=== PATIENT | male | born 1950 | race Caucasian/White ===

== ENCOUNTER 2017-08-06 05:17 | Observation (INO) ==
--- NOTE | 2017-08-06 05:36 | Emergency Department Note ---
Disposition Clinical Impression: Congestive heart failure Qualifiers: Heart failure type: diastolic Heart failure chronicity: acute on chronic Qualified Code(s): I50.33 - Acute on chronic diastolic (congestive) heart failure Disposition: Still a Patient Condition: Fair General Adult HPI - General Chief complaint: ED Shortness of Breath/Dyspnea Stated complaint: "CHF/SOB/Weakness" Time Seen by Provider: 08/06/17 05:28 Source: patient Mode of arrival: ambulatory Nursing Notes Reviewed: Yes Vital Signs Reviewed: Yes - History of Present Illness HPI Narrative: 66-year-old male with a history of hypertension, CAD with 8 stents presents with shortness of breath. Patient stated he has shortness breath and activity intolerance and bilateral ankle swelling for 2 months. Patient came here today because felt the symptoms getting worse. Patient stated walking 10 meters may cause difficulty catching breath. No chest pain at this time. No chills and a fever. No cough. Patient is not on water pill. Onset (ago): month(s) (2) Location: other (shortness of breath and legs swelling) Consistency: constant Worsens with: other (activity ) - Related Data Home Medications Medication Instructions Recorded Confirmed Albuterol Sulfate [Proair Hfa] 1 - 2 puff IH BID PRN 08/06/17 08/06/17 Aspirin Enteric Coated [Aspirin EC] 325 mg PO DAILY 08/06/17 08/06/17 Atorvastatin Calcium 80 mg PO QPM 08/06/17 08/06/17 Budesonide/Formoterol 80/4.5 2 puff IH BID 08/06/17 08/06/17 [Symbicort 80/4.5] Clopidogrel Bisulfate [Plavix] 75 mg PO DAILY 08/06/17 08/06/17 Diltiazem CD (24hr) [Cardizem CD] 120 mg PO DAILY 08/06/17 08/06/17 Diphenhydramine HCl [Nighttime 100 mg PO HS 08/06/17 08/06/17 Sleep Aid] Hydralazine HCl 100 mg PO TID 08/06/17 08/06/17 Insulin Glargine [Lantus] 25 unit SQ QAM 08/06/17 08/06/17 Insulin Glargine [Lantus] 25 unit SQ QPM 08/06/17 08/06/17 Insulin LISPRO [HumaLOG] 6 units SQ TID 08/06/17 08/06/17 Losartan Potassium [Cozaar] 50 mg PO DAILY 08/06/17 08/06/17 Metoprolol Succinate [Toprol Xl] 75 mg PO BID 08/06/17 08/06/17 Multivitamin-Min/Iron/FA/Vit K 1 tab PO DAILY 08/06/17 08/06/17 [Multi-Day Plus Minerals Tablet] Nitroglycerin [Nitrostat] 0.4 mg SL Q5M PRN 08/06/17 08/06/17 Rivaroxaban [Xarelto] 20 mg PO QPM 08/06/17 08/06/17 Tamsulosin [Flomax] 0.4 mg PO DAILY 08/06/17 08/06/17 Allergies Allergy/AdvReac Type Severity Reaction Status Date / Time No Known Allergies Allergy Verified 08/06/17 07:35 Constitutional: Denies: fever, chills, weakness, weight change Eyes: Denies: eye pain, eye discharge, vision change ENT ED: Denies: ear pain, throat pain, dental pain, hearing loss, epistaxis, congestion, dysphagia Cardiovascular: Reports: dyspnea on exertion, edema. Denies: chest pain, palpitations, syncope Respiratory: Reports: dyspnea. Denies: cough, wheezes, hemoptysis, stridor Gastrointestinal: Denies: abdominal pain, nausea, vomiting, diarrhea, constipation, hematemesis, melena, hematochezia Genitourinary: Denies: urgency, dysuria, frequency, hematuria Musculoskeletal: Denies: back pain, neck pain, arthralgia, myalgia Integumentary: Denies: rash, abrasion, lesions Neurological: Denies: headache, weakness, numbness, paresthesias, confusion, abnormal gait, vertigo Psychiatric: Denies: anxiety, depression, suicidal thoughts, homicidal thoughts , auditory hallucinations, visual hallucinations Endocrine: Denies: fatigue Hematological/Lymphatic: Denies: easy bleeding, easy bruising Allergic/Immunologic: Denies: facial swelling, urticaria Past Medical History - Past Medical History Medical history: Reports: atrial fibrillation, diabetes Psychiatric history: Reports: no psych history - Social History Smoking Status: Former smoker Smokeless Tobacco Status: No Alcohol use: Reports: none Drug use: Reports: none Physical Exam - General Limitations: no limitations General appearance: alert, in no apparent distress - Head Head exam: atraumatic, normocephalic, normal inspection - Eye Eye exam: Present: normal appearance, PERRL, EOMI - ENT ENT exam: normal exam, normal oropharynx, mucous membranes moist - Neck Neck exam: Present: normal inspection, full ROM, trachea midline - Chest Chest inspection: Present: normal inspection, symmetric chest wall rise - Respiratory Respiratory exam: Present: normal lung sounds bilaterally. Absent: respiratory distress, wheezes - Cardiovascular Cardiovascular exam: Present: regular rate, normal rhythm, normal heart sounds - Abdominal Exam Abdominal exam: Present: soft, Non-Tender. Absent: tenderness, distention, guarding, rebound, rigidity - Extremities Exam Extremities exam: Present: normal inspection, full ROM, pedal edema (Bilateral ankle swelling, and pedal edema). Absent: tenderness - Back Exam Back exam: Present: normal inspection, full ROM. Absent: tenderness - Neurological Exam Neurological exam: Present: alert, oriented X3 - Psychiatric Psychiatric exam: Present: normal affect, normal mood - Skin Skin exam: Present: warm, dry, normal color Course Vital Signs Temperature 97.5 F L 08/06/17 05:26 Pulse Rate 88 08/06/17 05:26 Respiratory Rate 20 08/06/17 05:26 Blood Pressure 153/115 08/06/17 05:26 O2 Sat by Pulse Oximetry 96 08/06/17 05:26 Temperature 98.0 F 08/07/17 03:00 Pulse Rate 82 08/07/17 03:00 Respiratory Rate 14 08/07/17 03:00 Blood Pressure 155/102 08/07/17 03:00 O2 Sat by Pulse Oximetry 94 08/07/17 03:00 Oxygen Delivery Oxygen Delivery Room Air Medical Decision Making - [facility] Narrative Medical decision making narrative: 66-year-old male with history of for hypertension and CAD with 8 stents presents with shortness breath and leg swelling for 2 months. Patient reported recently worsening symptoms. Patient stated walking 10 meters may cause difficulty breathing. Patient denied chest pain, cough, chills and fever. Patient is not on water pill. Physical exam: Bilateral lung sounds clear, irregular heart rhythm with heart rate 86, bilateral ankle 1 pit edema. EKG: a- fib with new left bundle. Impression: Congestive heart failure VS. [place]. Dr. Jackson saw the pt as well, suggest start Lasix and Nitro patch after get labs results. tarted chest pain protocol, with BNP. Most likely will be admitted. Report given to Carrie WANG due to shift change. - Lab Data Result diagrams: 08/07/17 03:44 08/07/17 03:44 Lab Results 08/06/17 08/06/17 08/06/17 Range/Units 05:37 05:37 05:37 WBC 10.9 (4.3-11.1) K/mcL RBC 4.52 (4.19-5.50) M/mcL Hgb 14.3 (12.9-16.9) g/dL Hct 42.0 (37.5-50.1) % MCV 92.9 (83.0-100.0) fL MCH 31.6 (28.0-33.3) pg MCHC 34.0 (31.6-35.5) g/dL RDW 13.7 (11.5-14.5) % Plt Count 184 (140-400) K/mcL MPV 11.1 (9.4-12.4) fL Immature Gran % 0.4 (0-4) % Seg Neutrophils % 65.7 % Lymphocytes % 24.6 % Monocytes % 6.5 % Eosinophils % 1.8 % Basophils % 1.0 % Neutrophils # 7.1 (1.6-8.9) K/mcL Lymphocytes # 2.7 (0.6-4.6) K/mcL Monocytes # 0.7 (0.0-1.3) K/mcL Eosinophils # 0.2 (0.0-0.6) K/mcL Basophils # 0.1 (0.0-0.2) K/mcL Sodium 140 (136-145) mEq/L Potassium 3.9 (3.5-5.1) mEq/L Chloride 109 H (98-107) mEq/L Carbon Dioxide 22 L (23-29) mEq/L BUN 21 (8-23) mg/dL Creatinine 0.98 (0.70-1.30) mg/dL Est GFR ( Amer) > 60 (> 60) Est GFR (Non-Af Amer) > 60 (> 60) BUN/Creatinine Ratio 21 (6-26) Glucose 128 H (70-105) mg/dL Calculated Osmolality 295 (280-300) Lactic Acid (0.5-2.2) mmol/L Calcium 9.2 (8.6-10.3) mg/dL Total Bilirubin 0.6 (0.3-1.0) mg/dL AST 28 (13-39) Units/L ALT 42 (7-52) Units/L Alkaline Phosphatase 108 H (34-104) Units/L Troponin I < 0.03 (< 0.04) ng/mL B-Natriuretic Peptide 709 H (Less than 100) pg/mL Serum Total Protein 6.8 (6.4-8.9) g/dL Albumin 4.1 (3.5-5.7) g/dL Globulin 2.7 (2.4-3.5) g/dL Albumin/Globulin Ratio 1.5 (1.1-2.2) 08/06/17 Range/Units 05:37 WBC (4.3-11.1) K/mcL RBC (4.19-5.50) M/mcL Hgb (12.9-16.9) g/dL Hct (37.5-50.1) % MCV (83.0-100.0) fL MCH (28.0-33.3) pg MCHC (31.6-35.5) g/dL RDW (11.5-14.5) % Plt Count (140-400) K/mcL MPV (9.4-12.4) fL Immature Gran % (0-4) % Seg Neutrophils % % Lymphocytes % % Monocytes % % Eosinophils % % Basophils % % Neutrophils # (1.6-8.9) K/mcL Lymphocytes # (0.6-4.6) K/mcL Monocytes # (0.0-1.3) K/mcL Eosinophils # (0.0-0.6) K/mcL Basophils # (0.0-0.2) K/mcL Sodium (136-145) mEq/L Potassium (3.5-5.1) mEq/L Chloride (98-107) mEq/L Carbon Dioxide (23-29) mEq/L BUN (8-23) mg/dL Creatinine (0.70-1.30) mg/dL Est GFR ( Amer) (> 60) Est GFR (Non-Af Amer) (> 60) BUN/Creatinine Ratio (6-26) Glucose (70-105) mg/dL Calculated Osmolality (280-300) Lactic Acid 1.1 (0.5-2.2) mmol/L Calcium (8.6-10.3) mg/dL Total Bilirubin (0.3-1.0) mg/dL AST (13-39) Units/L ALT (7-52) Units/L Alkaline Phosphatase (34-104) Units/L Troponin I (< 0.04) ng/mL B-Natriuretic Peptide (Less than 100) pg/mL Serum Total Protein (6.4-8.9) g/dL Albumin (3.5-5.7) g/dL Globulin (2.4-3.5) g/dL Albumin/Globulin Ratio (1.1-2.2) S.B.A.Tatyana. - S.B.A.RTamy Situation: Demographics, MOA Background: Presenting Complaint, Relevant PMH, Meds, & Allergies Assessment: Vital Signs, Course and respsone to treatment, Exam Concerns, Patient/Family Expectation, Pertinant Lab Results, Outstanding Labs Recommendation: Barrier(s) to disposition, Recommendation based on pending studies, treatments, or consults S.B.A.R. Report Given to: Carrie WANG STamyBTamyAKhurram Repor Time: 06:14
--- NOTE | 2017-08-06 05:45 | Emergency Department Note ---
START Narrative - START START: I have personally performed a face to face evaluation on this patient. I have reviewed and agree with the care plan. History and Exam by me shows: Afib, new LBBB, no chest pain, now with fluid retention and dyspnea. Will do cardiac workup and admit for echo, cards consult and diuresis.
[2017-08-06 05:50] LABS: Basophils # 0.1 K/mcL (0.0-0.2); Eosinophils # 0.2 K/mcL (0.0-0.6); Eosinophils % 1.8 %; Hemoglobin 14.3 g/dL (12.9-16.9); Immature Granulocytes % 0.4 % (0-4); Lymphocytes # 2.7 K/mcL (0.6-4.6); Lymphocytes % 24.6 %; Mean Corpuscular Hemoglobin 31.6 pg (28.0-33.3); Mean Corpuscular Volume 92.9 fL (83.0-100.0); Mean Platelet Volume 11.1 fL (9.4-12.4); Monocytes # 0.7 K/mcL (0.0-1.3); Monocytes % 6.5 %; Neutrophils # 7.1 K/mcL (1.6-8.9); Platelet Count 184 K/mcL (140-400); Red Blood Count 4.52 M/mcL (4.19-5.50); Red Cell Distribution Width 13.7 % (11.5-14.5); Segmented Neutrophils % 65.7 %
[2017-08-06 06:12] LABS: Troponin I < 0.03 ng/mL (< 0.04)
[2017-08-06 06:13] LABS: Alanine Aminotransferase 42 Units/L (7-52); Albumin 4.1 g/dL (3.5-5.7); Albumin/Globulin Ratio 1.5 (1.1-2.2); Alkaline Phosphatase 108 Units/L (34-104); Aspartate Amino Transferase 28 Units/L (13-39); BUN/Creatinine Ratio 21 (6-26); Bilirubin,Total 0.6 mg/dL (0.3-1.0); Blood Urea Nitrogen 21 mg/dL (8-23); Calcium 9.2 mg/dL (8.6-10.3); Carbon Dioxide 22 mEq/L (23-29); Chloride 109 mEq/L (98-107); Globulin 2.7 g/dL (2.4-3.5); Glucose 128 mg/dL (70-105); Osmolality,Calculated 295 (280-300); Potassium 3.9 mEq/L (3.5-5.1); Sodium 140 mEq/L (136-145); Total Protein 6.8 g/dL (6.4-8.9); eGFR For African Americans > 60 (> 60); eGFR For Non-African Americans > 60 (> 60)
[2017-08-06] MEDS ORDERED: Furosemide 40 MG/4 ML VIAL IVP ONE (06:29)
[2017-08-06] MEDS ORDERED: Aspirin 325 MG TABLET PO ONE (06:29)
[2017-08-06] MEDS ORDERED: Nitroglycerin 0.3 MG PATCH.TD24 TD ONE (06:30)
[2017-08-06] MEDS ORDERED: Nitroglycerin 1 INCH/GM PACKET TP ONE (06:57)
--- NOTE | 2017-08-06 07:42 | Emergency Department Note ---
Disposition Clinical Impression: Congestive heart failure Qualifiers: Heart failure type: diastolic Heart failure chronicity: acute on chronic Qualified Code(s): I50.33 - Acute on chronic diastolic (congestive) heart failure Disposition: Still a Patient Condition: Fair SOB HPI - General Chief Complaint: ED Shortness of Breath/Dyspnea Stated Complaint: "CHF/SOB/Weakness" Time Seen by Provider: 08/06/17 05:28 Source: patient Mode of arrival: ambulatory Limitations: no limitations Nursing Notes Reviewed: Yes Vital Signs Reviewed: Yes - Related Data Home Medications Medication Instructions Recorded Confirmed Albuterol Sulfate [Proair Hfa] 1 - 2 puff IH BID PRN 08/06/17 08/06/17 Aspirin Enteric Coated [Aspirin EC] 325 mg PO DAILY 08/06/17 08/06/17 Atorvastatin Calcium 80 mg PO QPM 08/06/17 08/06/17 Budesonide/Formoterol 80/4.5 2 puff IH BID 08/06/17 08/06/17 [Symbicort 80/4.5] Clopidogrel Bisulfate [Plavix] 75 mg PO DAILY 08/06/17 08/06/17 Diltiazem CD (24hr) [Cardizem CD] 120 mg PO DAILY 08/06/17 08/06/17 Diphenhydramine HCl [Nighttime 100 mg PO HS 08/06/17 08/06/17 Sleep Aid] Hydralazine HCl 100 mg PO TID 08/06/17 08/06/17 Insulin Glargine [Lantus] 25 unit SQ QAM 08/06/17 08/06/17 Insulin Glargine [Lantus] 25 unit SQ QPM 08/06/17 08/06/17 Insulin LISPRO [HumaLOG] 6 units SQ TID 08/06/17 08/06/17 Losartan Potassium [Cozaar] 50 mg PO DAILY 08/06/17 08/06/17 Metoprolol Succinate [Toprol Xl] 75 mg PO BID 08/06/17 08/06/17 Multivitamin-Min/Iron/FA/Vit K 1 tab PO DAILY 08/06/17 08/06/17 [Multi-Day Plus Minerals Tablet] Nitroglycerin [Nitrostat] 0.4 mg SL Q5M PRN 08/06/17 08/06/17 Rivaroxaban [Xarelto] 20 mg PO QPM 08/06/17 08/06/17 Tamsulosin [Flomax] 0.4 mg PO DAILY 08/06/17 08/06/17 Allergies Allergy/AdvReac Type Severity Reaction Status Date / Time No Known Allergies Allergy Verified 08/06/17 07:35 Constitutional: Denies: fever, chills, weakness, weight change Eyes: Denies: eye pain, eye discharge, vision change ENT ED: Denies: ear pain, throat pain, dental pain, hearing loss, epistaxis, congestion, dysphagia Cardiovascular: Reports: dyspnea on exertion, edema. Denies: chest pain, palpitations, syncope Respiratory: Reports: dyspnea. Denies: cough, wheezes, hemoptysis, stridor Gastrointestinal: Denies: abdominal pain, nausea, vomiting, diarrhea, constipation, hematemesis, melena, hematochezia Genitourinary: Denies: urgency, dysuria, frequency, hematuria Musculoskeletal: Denies: back pain, neck pain, arthralgia, myalgia Integumentary: Denies: rash, abrasion, lesions Neurological: Denies: headache, weakness, numbness, paresthesias, confusion, abnormal gait, vertigo Psychiatric: Denies: anxiety, depression, suicidal thoughts, homicidal thoughts , auditory hallucinations, visual hallucinations Endocrine: Denies: fatigue Hematological/Lymphatic: Denies: easy bleeding, easy bruising Allergic/Immunologic: Denies: facial swelling, urticaria Past Medical History - Past Medical History Medical history: Reports: atrial fibrillation, diabetes Psychiatric history: Reports: no psych history - Social History Smoking Status: Former smoker Smokeless Tobacco Status: No Alcohol use: Reports: none Drug use: Reports: none Physical Exam - General Limitations: no limitations General appearance: alert, in no apparent distress Course Course Narrative: Assumed care of this patient from Marin Oconnro CNP at [facility] change. The patient presented to the ER for evaluation and treatment of dyspnea on exertion, peripheral edema, generalized weakness and fatigue. Symptoms have been present for approximately one month. He has history of atrial fibrillation on Xarelto and coronary artery disease with history of eight stents. Assistant General Manager is Dr. Warner. Patient states that he has been diagnosed with CHF in the past but does not take diuretics. Review of his medical records show that he had an echo in 2016 that showed an EF of 50%. He denies chest pain. Labs pending. EKG was done earlier. It shows a new LBBB. This was reviewed by Dr. Jackson. He recommends NTG paste, lasix and admission. Patient is agreeable with this plan. CXR shows bilateral pleural effusions. Labs - BNP >700. Troponin normal. Vitals stable. Patient case discussed with the skip tender Hospitalist. He requests that I wait and speak with the day shift hospitalist. He will have the oncoming Doc call me. Dr. Hargrove accepted that patient. Vital Signs Temperature 97.5 F L 08/06/17 05:26 Pulse Rate 88 08/06/17 05:26 Respiratory Rate 20 08/06/17 05:26 Blood Pressure 153/115 08/06/17 05:26 O2 Sat by Pulse Oximetry 96 08/06/17 05:26 Temperature 97.3 F L 08/06/17 15:10 Pulse Rate 74 08/06/17 15:10 Respiratory Rate 16 08/06/17 15:10 Blood Pressure 161/94 08/06/17 15:10 O2 Sat by Pulse Oximetry 97 08/06/17 15:10 Oxygen Delivery Oxygen Delivery Room Air Shortness of Breath/Dyspnea - Lab Data Result diagrams: 08/06/17 05:37 08/06/17 05:37 Lab Results 08/06/17 08/06/17 08/06/17 Range/Units 05:37 05:37 05:37 WBC 10.9 (4.3-11.1) K/mcL RBC 4.52 (4.19-5.50) M/mcL Hgb 14.3 (12.9-16.9) g/dL Hct 42.0 (37.5-50.1) % MCV 92.9 (83.0-100.0) fL MCH 31.6 (28.0-33.3) pg MCHC 34.0 (31.6-35.5) g/dL RDW 13.7 (11.5-14.5) % Plt Count 184 (140-400) K/mcL MPV 11.1 (9.4-12.4) fL Immature Gran % 0.4 (0-4) % Seg Neutrophils % 65.7 % Lymphocytes % 24.6 % Monocytes % 6.5 % Eosinophils % 1.8 % Basophils % 1.0 % Neutrophils # 7.1 (1.6-8.9) K/mcL Lymphocytes # 2.7 (0.6-4.6) K/mcL Monocytes # 0.7 (0.0-1.3) K/mcL Eosinophils # 0.2 (0.0-0.6) K/mcL Basophils # 0.1 (0.0-0.2) K/mcL Sodium 140 (136-145) mEq/L Potassium 3.9 (3.5-5.1) mEq/L Chloride 109 H (98-107) mEq/L Carbon Dioxide 22 L (23-29) mEq/L BUN 21 (8-23) mg/dL Creatinine 0.98 (0.70-1.30) mg/dL Est GFR ( Amer) > 60 (> 60) Est GFR (Non-Af Amer) > 60 (> 60) BUN/Creatinine Ratio 21 (6-26) Glucose 128 H (70-105) mg/dL Calculated Osmolality 295 (280-300) Lactic Acid (0.5-2.2) mmol/L Calcium 9.2 (8.6-10.3) mg/dL Total Bilirubin 0.6 (0.3-1.0) mg/dL AST 28 (13-39) Units/L ALT 42 (7-52) Units/L Alkaline Phosphatase 108 H (34-104) Units/L Troponin I < 0.03 (< 0.04) ng/mL B-Natriuretic Peptide 709 H (Less than 100) pg/mL Serum Total Protein 6.8 (6.4-8.9) g/dL Albumin 4.1 (3.5-5.7) g/dL Globulin 2.7 (2.4-3.5) g/dL Albumin/Globulin Ratio 1.5 (1.1-2.2) 08/06/17 Range/Units 05:37 WBC (4.3-11.1) K/mcL RBC (4.19-5.50) M/mcL Hgb (12.9-16.9) g/dL Hct (37.5-50.1) % MCV (83.0-100.0) fL MCH (28.0-33.3) pg MCHC (31.6-35.5) g/dL RDW (11.5-14.5) % Plt Count (140-400) K/mcL MPV (9.4-12.4) fL Immature Gran % (0-4) % Seg Neutrophils % % Lymphocytes % % Monocytes % % Eosinophils % % Basophils % % Neutrophils # (1.6-8.9) K/mcL Lymphocytes # (0.6-4.6) K/mcL Monocytes # (0.0-1.3) K/mcL Eosinophils # (0.0-0.6) K/mcL Basophils # (0.0-0.2) K/mcL Sodium (136-145) mEq/L Potassium (3.5-5.1) mEq/L Chloride (98-107) mEq/L Carbon Dioxide (23-29) mEq/L BUN (8-23) mg/dL Creatinine (0.70-1.30) mg/dL Est GFR ( Amer) (> 60) Est GFR (Non-Af Amer) (> 60) BUN/Creatinine Ratio (6-26) Glucose (70-105) mg/dL Calculated Osmolality (280-300) Lactic Acid 1.1 (0.5-2.2) mmol/L Calcium (8.6-10.3) mg/dL Total Bilirubin (0.3-1.0) mg/dL AST (13-39) Units/L ALT (7-52) Units/L Alkaline Phosphatase (34-104) Units/L Troponin I (< 0.04) ng/mL B-Natriuretic Peptide (Less than 100) pg/mL Serum Total Protein (6.4-8.9) g/dL Albumin (3.5-5.7) g/dL Globulin (2.4-3.5) g/dL Albumin/Globulin Ratio (1.1-2.2)
[2017-08-06] MEDS ORDERED: Naloxone 0.4 MG/ML INJ IVP PRN (10:24)
[2017-08-06] MEDS ORDERED: Acetaminophen 325 MG TABLET PO PRN (10:24)
[2017-08-06] MEDS ORDERED: Nitroglycerin 0.4 MG TAB.SUBL SL PRN (10:25)
--- NOTE | 2017-08-06 10:52 | Internal Med History&Physical ---
Date of Encounter: 08/06/17 Time of Encounter: 10:00 Internal Medicine - H&P: HPI Chief complaint: Shortness of breath Admitted From: Emergency Dept Plans for Post Hospital Care: Home History of present illness: Mr. Castano is a 66 year old male patient with a history of coronary artery disease, PCI with prior stents, diabetes who presented to the ER with complaints of shortness of breath. Has been going on for 2 days and progressively worsening. He has significant trouble breathing while ambulating. He is also been developing pedal edema. Denies orthopnea at this time but did have orthopnea over the past couple of days. No chest pain. Does have cough. Mild sputum production. No fever or chills. Past Med Surg Social Fam HX - Past Medical History Attestation: Yes The following information was validated with the patient. Source: patient Medical history: atrial fibrillation, diabetes Additional medical history: several stents, Psychiatric history: no psych history - Past Surgical History Additional surgical history: 8 stents - Social History Smoking Status: Former smoker Smokeless Tobacco Status: No Alcohol use: none Drug use: none - Additional Family History Additional family history: Family history reviewed and found to be noncontributory at this time. Internal Medicine - H&P: Meds Albuterol Sulfate [Proair Hfa] 1 - 2 puff IH BID PRN 08/06/17 [History] Aspirin Enteric Coated [Aspirin EC] 325 mg PO DAILY 08/06/17 [History] Atorvastatin Calcium 80 mg PO QPM 08/06/17 [History] Budesonide/Formoterol 80/4.5 [Symbicort 80/4.5] 2 puff IH BID 08/06/17 [History ] Clopidogrel Bisulfate [Plavix] 75 mg PO DAILY 08/06/17 [History] Diltiazem CD (24hr) [Cardizem CD] 120 mg PO DAILY 08/06/17 [History] Diphenhydramine HCl [Nighttime Sleep Aid] 100 mg PO HS 08/06/17 [History] Hydralazine HCl 100 mg PO TID 08/06/17 [History] Insulin Glargine [Lantus] 25 unit SQ QAM 08/06/17 [History] Insulin Glargine [Lantus] 25 unit SQ QPM 08/06/17 [History] Insulin LISPRO [HumaLOG] 6 units SQ TID 08/06/17 [History] Losartan Potassium [Cozaar] 50 mg PO DAILY 08/06/17 [History] Metoprolol Succinate [Toprol Xl] 75 mg PO BID 08/06/17 [History] Multivitamin-Min/Iron/FA/Vit K [Multi-Day Plus Minerals Tablet] 1 tab PO DAILY 08/06/17 [History] Nitroglycerin [Nitrostat] 0.4 mg SL Q5M PRN 08/06/17 [History] Rivaroxaban [Xarelto] 20 mg PO QPM 08/06/17 [History] Tamsulosin [Flomax] 0.4 mg PO DAILY 08/06/17 [History] 3 Allergy/AdvReac Type Severity Reaction Status Date / Time No Known Allergies Allergy Verified 08/06/17 07:35 All Systems PM: A 10-system review of systems was performed and is negative for pertinent findings except as documented above in the HPI. - Constitutional Constitutional: no chills, no fever(s), no night sweats - EENT Eyes: no change in vision, no discharge, no pain, no photophobia Ears: no ear discharge, no ear pain, no tinnitus Nose, mouth and throat: no dysphagia, no nasal discharge, no neck pain, no sore throat - Cardiovascular Cardiovascular ROS IM: dyspnea on exertion, edema, orthopnea, no chest pain, no diaphoresis, no dyspnea, no lightheadedness, no palpitations, no syncope - Respiratory Respiratory: cough, dyspnea, dyspnea on exertion - Gastrointestinal Gastrointestinal: no abdominal pain, no diarrhea, no hematemesis, no hematochezia, no melena, no nausea, no vomiting - Musculoskeletal Musculoskeletal ROS IM: no numbness, no tingling - Integumentary Integumentary IM: no rash, no unusual bruising - Neurological Neurological ROS: no confusion, no convulsions, no focal weakness, no numbness, no tingling, no tremor(s) - Hematologic/Lymphatic Hematologic/Lymphatic: no easy bruising - Constitutional Vitals: Temp Pulse Resp BP Pulse Ox 98.0 F 71 14 138/88 93 08/06/17 10:05 08/06/17 10:05 08/06/17 10:05 08/06/17 10:05 08/06/17 10:05 General appearance: Present: cooperative, A&O X 3, answers questions appropriately - Neck Neck exam general surgery: Present: supple, trachea midline. Absent: lymphadenopathy - Respiratory Respiratory exam: Present: CTAB. Absent: accessory muscle use, rales, rhonchi, wheezes - Cardiovascular Cardiovascular exam: Present: RRR, +S1, +S2. Absent: diastolic murmur, gallop, rubs, systolic murmur - GI/Abdominal GI/Abdominal exam: Present: normal bowel sounds, soft, no peritoneal signs. Absent: distended, tenderness - Extremities Exam Extremities exam: Present: pedal edema (Bilateral), warm, radial pulses palpable and symmetrical. Absent: calf tenderness, cyanotic - Neurological Exam Neurological exam: Present: alert, CN II-XII intact, oriented X3, no focal deficits. Absent: facial droop, speech deficit - Skin Skin exam: Present: dry, intact Internal Med - H&P Results - Labs CBC & Chem 7: 08/06/17 05:37 08/06/17 05:37 - Assessment and plan (1) Congestive heart failure Current Visit: Yes Status: Acute Assessment and plan: Patient presenting with shortness of breath and dyspnea on exertion most likely related to acute congestive heart failure. Prior echocardiogram done in 2016 shows EF of 50% with concentric hypertrophy of left ventricle and mild diastolic dysfunction. Patient most likely has diastolic heart failure. We will treat him with IV Lasix. Input and output monitoring. Fluid restriction. Cardiac diet. We will repeat 2-D echocardiogram. Monitor with telemetry and trend troponins. Qualifiers: Heart failure type: diastolic Heart failure chronicity: acute on chronic Qualified Code(s): I50.33 - Acute on chronic diastolic (congestive) heart failure (2) Hypertension Current Visit: Yes Status: Chronic Assessment and plan: Blood pressure is well controlled at this time. We will continue home medications. Qualifiers: Hypertension type: essential hypertension Qualified Code(s): I10 - Essential (primary) hypertension (3) Diabetes mellitus, type 2 Current Visit: Yes Status: Chronic Assessment and plan: On Lantus and NovoLog at home. Will continue Lantus and place patient on sliding scale insulin Qualifiers: Diabetes mellitus intermodal dispatcher insulin use: with intermodal dispatcher use Diabetes mellitus complication status: with circulatory complication Diabetes mellitus complication detail: with other circulatory complications Qualified Code(s): E11.59 - Type 2 diabetes mellitus with other circulatory complications; Z79.4 - detention (current) use of insulin (4) Coronary artery disease Current Visit: Yes Status: Chronic Assessment and plan: Continue aspirin, statin and Plavix Qualifiers: Coronary Disease-Associated Artery/Lesion type: [place] artery [place] vs. transplanted heart: [place] heart Associated angina: without angina Qualified Code(s): I25.10 - Atherosclerotic heart disease of [place] coronary artery without angina pectoris (5) Atrial fibrillation Current Visit: Yes Status: Chronic Assessment and plan: Rate controlled. Continue Cardizem. On and coordination with Xarelto. Qualifiers: Atrial fibrillation type: paroxysmal Qualified Code(s): I48.0 - Paroxysmal atrial fibrillation - Time Spent With Patient Total time spent is greater than 50% in coordination of care (as documented) at patient's floor/unit and/or counseling patient:
[2017-08-06] MEDS: Metoprolol XL (24 HR) Succ 25 MG TAB.ER.24H PO SCH ×2 (11:39→20:30)
--- NOTE | 2017-08-06 13:08 | Electrocardiograph Report ---
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
[2017-08-06] MEDS ORDERED: Perflutren Lipid Microsphere 1.3 ML in 0.9 % Sodium Chloride 8.7 ML IVP ONE (15:10)
[2017-08-06] MEDS: Diltiazem CD (24hr) 120 MG CAPSULE PO SCH (16:58)
[2017-08-06] MEDS ORDERED: *HR* Rivaroxaban 10 MG TABLET PO SCH (17:00)
[2017-08-06] MEDS: Furosemide 40 MG/4 ML VIAL IVP SCH (17:06)
[2017-08-06] MEDS: hydrALAZINE 25 MG TABLET PO SCH ×2 (17:06→20:29)
[2017-08-06] MEDS: Insulin DETEMIR 100 UNIT/ML X5UNITS SQ SCH (17:08)
[2017-08-06] MEDS: Budesonide/Formoterol 80/4.5 MDI IH SCH (19:31)
[2017-08-06] MEDS ORDERED: Metoprolol XL (24 HR) Succ 25 MG TAB.ER.24H PO SCH (21:00)
[2017-08-07 05:17] LABS: Basophils # 0.1 K/mcL (0.0-0.2); Basophils % 1.1 %; Eosinophils # 0.2 K/mcL (0.0-0.6); Eosinophils % 1.9 %; Hematocrit 42.3 % (37.5-50.1); Hemoglobin 14.4 g/dL (12.9-16.9); Immature Granulocytes % 0.4 % (0-4); Lymphocytes # 2.6 K/mcL (0.6-4.6); Lymphocytes % 22.8 %; Mean Corpuscular Hemoglobin 31.6 pg (28.0-33.3); Mean Corpuscular Volume 92.8 fL (83.0-100.0); Mean Platelet Volume 11.4 fL (9.4-12.4); Monocytes # 0.8 K/mcL (0.0-1.3); Monocytes % 7.3 %; Neutrophils # 7.5 K/mcL (1.6-8.9); Platelet Count 182 K/mcL (140-400); Red Blood Count 4.56 M/mcL (4.19-5.50); Red Cell Distribution Width 13.6 % (11.5-14.5); Segmented Neutrophils % 66.5 %
[2017-08-07 05:41] LABS: BUN/Creatinine Ratio 17 (6-26); Blood Urea Nitrogen 17 mg/dL (8-23); Calcium 9.1 mg/dL (8.6-10.3); Carbon Dioxide 26 mEq/L (23-29); Chloride 106 mEq/L (98-107); Glucose 101 mg/dL (70-105); Osmolality,Calculated 294 (280-300); Potassium 3.2 mEq/L (3.5-5.1); Sodium 141 mEq/L (136-145); eGFR For African Americans > 60 (> 60); eGFR For Non-African Americans > 60 (> 60)
[2017-08-07] MEDS ORDERED: Diltiazem CD (24hr) 120 MG CAPSULE PO SCH (09:00)
[2017-08-07] MEDS ORDERED: Aspirin Enteric Coated 325 MG Tablet PO SCH (09:00)
[2017-08-07] MEDS: Multivit/Ca/Min/Fe/FA 1 TAB TABLET PO SCH (09:02)
[2017-08-07] MEDS: Diltiazem CD (24hr) 120 MG CAPSULE PO SCH (09:02)
[2017-08-07] MEDS: Metoprolol XL (24 HR) Succ 25 MG TAB.ER.24H PO SCH ×2 (09:02→19:51)
[2017-08-07] MEDS: Furosemide 40 MG/4 ML VIAL IVP SCH ×2 (09:03→17:19)
[2017-08-07] MEDS: hydrALAZINE 25 MG TABLET PO SCH ×3 (09:04→19:51)
[2017-08-07] MEDS: Insulin DETEMIR 100 UNIT/ML X5UNITS SQ SCH ×2 (09:04→17:20)
[2017-08-07] MEDS: Budesonide/Formoterol 80/4.5 MDI IH SCH ×2 (10:00→19:59)
--- NOTE | 2017-08-07 10:49 | Cardiology Consult Note ---
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 -TTE with LVEF 15-20%, severe global systolic reduction, moderately dilated LV, indeterminate diastolic function, RV size not well visualized, however RV function appears severely reduced, mild-moderate MR, mild TR, mild PH. -Previous TTE 2015 with LVEF 50%. -On lasix 40mg IV BID. -Currently net negative 1000ml. -Patient states baseline weight 270 pounds, weight today 286 pounds. -On BB, and ARB. -With new severely reduced LVEF, recommend LHC. Risks versus benefits of LHC explained to patient. States understanding. OF note, did receive xarelto at 1700. Plan for possible LHC in am. -Continue diuresis. -Strict I/os, fluid restriction, daily weights. (2) Coronary artery disease Current Visit: Yes Status: Chronic Per cardiology: -Known history of CAD. -Last LHC 2012 with proximal LAD with patent stents, mid LAD 40% stenosis, 70-80 % diagonal 1 ISR, 30% ISR proximal LAD, balloon angioplasty was performed on proximal LAD and diagonal, 40% OM1, 50% ramus, 50% distal RCA, 30% RPDA. -ON asa, plavix, statin, BB. -ECG with new LBBB. -Denies chest pain. -PLan for possible LHC in am. Qualifiers: Coronary Disease-Associated Artery/Lesion type: [place] artery [place] vs. transplanted heart: [place] heart Associated angina: without angina Qualified Code(s): I25.10 - Atherosclerotic heart disease of [place] coronary artery without angina pectoris (3) Atrial fibrillation Current Visit: Yes Status: Chronic Per cardiology: -Known history of PAF. -ON BB, CCB HR controlled. -ON xarelto for antiocagulation. -Will hold xarelto in preparation for LHC. Qualifiers: Atrial fibrillation type: paroxysmal Qualified Code(s): I48.0 - Paroxysmal atrial fibrillation Discussion w patient/family: The assessment and plan as outlined above was discussed with the patient who expressed understanding and agreement. All questions were answered. Thank you for involving us in the care of your patient. Please call with any questions. Discussed and reviewed with Dr.John Espinosa. History of Present Illness Consult date: 08/07/17 Requesting physician: Alonso Ahumada Consult reason: Systolic CHF Chief complaint: shortness of breath, edema, weight gain History of present illness: Mr. Castano is a 66 year old male with a relevant past medical history of [place], CAD s/p multiple PCIs, PAF, HTN, HLD, DM who presented to [facility] with complaints of increased shortness of breath, edema, and weight gain. Patient states symptoms have been ongoing for about a month. Patient states he has gained about 20+ pounds in the past one month. Denies chest pain. Denies palpitations or fluttering. States symptoms are somewhat improved since admission. Past Med Surg Social Fam HX - Past Medical History Attestation: Yes The following information was validated with the patient. Source: patient, old records reviewed Medical history: atrial fibrillation, coronary artery disease, diabetes, hyperlipidemia, hypertension, myocardial infarction Additional medical history: several stents, Psychiatric history: no psych history - Past Surgical History Additional surgical history: 8 stents - Social History Smoking Status: Former smoker Smokeless Tobacco Status: No Alcohol use: none Drug use: none Medications and Allergies Albuterol Sulfate [Proair Hfa] 1 - 2 puff IH BID PRN 08/06/17 [History] Aspirin Enteric Coated [Aspirin EC] 325 mg PO DAILY 08/06/17 [History] Atorvastatin Calcium 80 mg PO QPM 08/06/17 [History] Budesonide/Formoterol 80/4.5 [Symbicort 80/4.5] 2 puff IH BID 08/06/17 [History ] Clopidogrel Bisulfate [Plavix] 75 mg PO DAILY 08/06/17 [History] Diltiazem CD (24hr) [Cardizem CD] 120 mg PO DAILY 08/06/17 [History] Diphenhydramine HCl [Nighttime Sleep Aid] 100 mg PO HS 08/06/17 [History] Hydralazine HCl 100 mg PO TID 08/06/17 [History] Insulin Glargine [Lantus] 25 unit SQ QAM 08/06/17 [History] Insulin Glargine [Lantus] 25 unit SQ QPM 08/06/17 [History] Insulin LISPRO [HumaLOG] 6 units SQ TID 08/06/17 [History] Losartan Potassium [Cozaar] 50 mg PO DAILY 08/06/17 [History] Metoprolol Succinate [Toprol Xl] 75 mg PO BID 08/06/17 [History] Multivitamin-Min/Iron/FA/Vit K [Multi-Day Plus Minerals Tablet] 1 tab PO DAILY 08/06/17 [History] Nitroglycerin [Nitrostat] 0.4 mg SL Q5M PRN 08/06/17 [History] Rivaroxaban [Xarelto] 20 mg PO QPM 08/06/17 [History] Tamsulosin [Flomax] 0.4 mg PO DAILY 08/06/17 [History] 3 Allergy/AdvReac Type Severity Reaction Status Date / Time No Known Allergies Allergy Verified 08/06/17 07:35 All Systems Review: The remainder of the systems were reviewed and are negative - Cardiovascular Cardiovascular: as per HPI, dyspnea at rest, dyspnea on exertion, leg edema Physical Examination Vital Signs, Last 4 Hours Temp Pulse Resp BP Pulse Ox 08/07/17 10:00 20 93 08/07/17 09:17 91 08/07/17 07:02 97.9 F 75 14 120/68 91 General: Conversant, No Apparent Distress HEENT: Atraumatic, Normocephaly, Mucus Membranes Moist Neck: No JVD, Normal carotid pulses Cardiac: Normal S1 and S2, No Murmur, Other (Irregularly irregular ) Lungs: Normal Breath Sounds, No Wheeze, Rales, Rhonchi Neuro: Alert and responsive, No focal deficits noted Abdomen: Soft, Non-Tender Skin: No rashes noted on visualized skin Musculoskeletal: No Chest Wall Tenderness Extremities: No Clubbing, No Cyanosis, Normal Pulses, Other (2+ bilateral lower extremity pitting edema. ) Results 08/07/17 03:44 08/07/17 03:44 Lab Results Impressions Echocardiogram 08/06/17 11:00 Impressions: LVEF 15-20%. Severe global left ventricular systolic dysfunction. There is no LV thrombus. Definity echo contrast was used. Moderately dilated left ventricle. Indeterminate diastolic function. RV size not optimally visualized. Function appears severely reduced. Doppler not well obtained. Mild-moderate mitral regurgitation. Mild tricuspid regurgitation. Mild pulmonary hypertension. The IVC is dilated. Left Ventricular Wall Motion: Rest Echo Findings The apex, apical inferior, mid inferior, basal inferior, apical anterior, mid anterior, basal anterior, apical septal, mid inferior septal, basal inferior septal, apical lateral, mid anterior lateral, basal anterior lateral, mid anterior septal, mid inferior lateral, basal anterior septal and basal inferior lateral galloway were hypokinetic. Findings: Study Quality * Technically sub-optimal due to poor echocardiographic windows. ECG Findings * Atrial fibrillation/flutter. Left Ventricle * LVEF 15-20%. * Severe global left ventricular systolic dysfunction. * There is no LV thrombus. * Definity echo contrast was used. * Moderately dilated left ventricle. * LV wall thickness measurements not well obtained. * Indeterminate diastolic function. Right Ventricle * RV size not optimally visualized. Function appears severely reduced. Doppler not well obtained. Left Atrium * Moderately dilated left atrium. Right Atrium * Normal right atrial size. Aortic Valve * No aortic regurgitation. * Trileaflet aortic valve. * No aortic stenosis. Mitral Valve * No mitral stenosis. * Normal mitral valve structure. * Mild-moderate mitral regurgitation. Tricuspid Valve * Tricuspid valve not well visualized. * Mild tricuspid regurgitation. * Estimated RA pressure is 8 mmHg. * Estimated RVSP is 41 mmHg. * Mild pulmonary hypertension. Pulmonic Valve * Pulmonic valve is not well visualized. * No pulmonic stenosis. * No pulmonic regurgitation. Pulmonary Artery * Pulmonary artery not well visualized. Aorta * Normally sized aortic root. Pericardium * There is no pericardial effusion present. Interatrial Septum * No evidence of PFO by color Doppler. IVC * The IVC is dilated. * > 50% respiratory change Active Medications Acetaminophen (Tylenol) 650 mg PO Q6HR PRN PRN Reason: Mild Pain/Fever Stop: 02/05/18 10:25 Albuterol Sulfate (Albuterol Inhaler) 2 puff IH [id number] PRN PRN Reason: Shortness Of Breath Stop: 02/05/18 10:26 Aspirin (Aspirin Ec) 325 mg PO DAILY RADHA Stop: 02/06/18 09:01 Last Admin: 08/07/17 09:02 Dose: 325 mg Atorvastatin Calcium (Lipitor) 80 mg PO QPM RADHA Stop: 02/05/18 18:01 Last Admin: 08/06/17 17:07 Dose: 80 mg Budesonide/Formoterol Fumarate (Symbicort) 2 puff IH BIDR RADHA PRN Reason: Protocol Stop: 02/05/18 22:01 Last Admin: 08/07/17 10:00 Dose: 2 puff Clopidogrel Bisulfate (Plavix) 75 mg PO DAILY RADHA Stop: 02/05/18 12:01 Last Admin: 08/07/17 09:02 Dose: 75 mg Diltiazem HCl (Cardizem Cd) 120 mg PO DAILY RADHA Stop: 02/05/18 11:16 Last Admin: 08/07/17 09:02 Dose: 120 mg Diphenhydramine HCl (Benadryl) 100 mg PO HS RADHA Stop: 02/05/18 21:01 Last Admin: 08/06/17 20:30 Dose: 100 mg Furosemide (Lasix) 40 mg IVP BIDDIURETIC RADHA Stop: 02/05/18 17:01 Last Admin: 08/07/17 09:03 Dose: 40 mg Hydralazine HCl (Hydralazine) 100 mg PO TID RADHA Stop: 02/05/18 15:01 Last Admin: 08/07/17 09:04 Dose: 100 mg Insulin Detemir (Levemir) 25 unit SQ QAM RADHA Stop: 02/06/18 09:01 Last Admin: 08/07/17 09:04 Dose: 25 unit Insulin Detemir (Levemir) 25 unit SQ QPM RADHA Stop: 02/05/18 18:01 Last Admin: 08/06/17 17:08 Dose: 25 unit Losartan Potassium (Cozaar) 50 mg PO DAILY RADHA Stop: 02/05/18 11:11 Last Admin: 08/07/17 09:02 Dose: 50 mg Metoprolol Succinate (Toprol Xl) 75 mg PO BID RADHA Stop: 02/05/18 11:08 Last Admin: 08/07/17 09:02 Dose: 75 mg Multivitamins/Calcium (Thera M Plus) 1 tab PO DAILY RADHA Stop: 02/06/18 09:01 Last Admin: 08/07/17 09:02 Dose: 1 tab Naloxone HCl (Narcan) 0.4 mg IVP Q2MIN PRN PRN Reason: SEE COMMENTS Stop: 02/05/18 10:25 Nitroglycerin (Nitroglycerin) 0.4 mg SL Q5M PRN PRN Reason: Chest Pain Stop: 02/05/18 10:26 Rivaroxaban (Xarelto) 20 mg PO 1700 RADHA Stop: 02/05/18 17:01 Last Admin: 08/06/17 17:07 Dose: 20 mg Tamsulosin HCl (Flomax) 0.4 mg PO DAILY RADHA PRN Reason: Protocol Stop: 02/06/18 09:01 Last Admin: 08/07/17 09:02 Dose: 0.4 mg Laboratory Tests 08/06/17 08/06/17 08/06/17 05:37 05:37 11:36 WBC Hgb Potassium Creatinine Troponin I < 0.03 < 0.03 B-Natriuretic Peptide 709 H 08/06/17 08/06/17 08/07/17 17:04 22:54 03:44 WBC 11.3 H Hgb 14.4 Potassium Creatinine Troponin I < 0.03 < 0.03 B-Natriuretic Peptide 08/07/17 03:44 WBC Hgb Potassium 3.2 L Creatinine 0.99 Troponin I B-Natriuretic Peptide - Imaging and Cardiology Chest Xray: report reviewed Echo: report reviewed Cardiac cath: report reviewed - EKG Interpretation EKG results cardiology: personally reviewed (ECG with atrial fibrillation, HR 85. LBBB noted.), other (Telemetry reviewed with average HR previous 12 hours noted to be 78, a.fib. PVCs noted.) Consult Discharge Plan - Plan Referrals: Bradley Lu MD [Primary Care Provider] - 08/14/17 10:30 am <Roger Espinosa - Last Filed: 08/07/17 12:15> Date of Encounter: 08/07/17 - Attending Attestation I have personally performed a face to face evaluation on this patient. I have reviewed and agree with the care plan. History and Exam by me shows: Admitted with CHF, found to have new cardiomyopathy and persistent AF. Would recommend medical therapy for cardiomyopathy and left heart cath to determine etiology of CM. Assessment and Plan Discussion w patient/family: The assessment and plan as outlined above was discussed with the patient and/or family members who expressed understanding and agreement. All questions were answered. Thank you for involving us in the care of your patient. Please call with any questions. History of Present Illness History of present illness: Mr. Castano is a 66 year old male All Systems Review: The remainder of the systems were reviewed and are negative Physical Examination Vital Signs, Last 4 Hours Temp Pulse Resp BP Pulse Ox 08/07/17 11:17 98.4 F 70 16 127/86 92 08/07/17 10:00 20 93 08/07/17 09:17 91 Results 08/07/17 03:44 08/07/17 03:44 Lab Results 08/06/17 08/06/17 08/07/17 17:04 22:54 03:44 WBC 11.3 H Hgb 14.4 Hct 42.3 Plt Count 182 Sodium Potassium Chloride Carbon Dioxide BUN Creatinine Glucose Calcium Troponin I < 0.03 < 0.03 08/07/17 03:44 WBC Hgb Hct Plt Count Sodium 141 Potassium 3.2 L Chloride 106 Carbon Dioxide 26 BUN 17 Creatinine 0.99 Glucose 101 Calcium 9.1 Troponin I
--- NOTE | 2017-08-07 11:22 | Internal Med Progress Note ---
Date of Encounter: 08/07/17 Time of Encounter: 07:47 - Assessment and plan (1) Congestive heart failure Current Visit: Yes Status: Acute Assessment and plan: TTE performed yesterday showed LVEF 15-20%, severe global systolic reduction, moderately dilated LV, indeterminate diastolic function, RV size not well visualized, however RV function appears severely reduced, mild-moderate MR, mild TR, mild PH. Troponin trended negative x 3. Cardiology consulted; appreciate input. Plan for [facility] tomorrow. Continue IV lasix 40 mg BID. Continue fluid restriction and cardiac diet. Monitor strict I&Os and daily weights. Recheck labwork in AM. Qualifiers: Heart failure type: diastolic Heart failure chronicity: acute on chronic Qualified Code(s): I50.33 - Acute on chronic diastolic (congestive) heart failure (2) Hypertension Current Visit: Yes Status: Chronic Assessment and plan: Continue home medications. Qualifiers: Hypertension type: essential hypertension Qualified Code(s): I10 - Essential (primary) hypertension (3) Diabetes mellitus, type 2 Current Visit: Yes Status: Chronic Assessment and plan: Continue accuchecks and SSI QID AC/HS. Continue home long-acting insulin. 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 Cardiology consulted as per above; appreciate input. Plan for [facility] tomorrow. Qualifiers: Coronary Disease-Associated Artery/Lesion type: [place] artery [place] vs. transplanted heart: [place] heart Associated angina: without angina Qualified Code(s): I25.10 - Atherosclerotic heart disease of [place] coronary artery without angina pectoris (5) Atrial fibrillation Current Visit: Yes Status: Chronic Assessment and plan: Rate controlled. Continue Cardizem. Hold Xarelto for [facility] tomorrow. Qualifiers: Atrial fibrillation type: paroxysmal Qualified Code(s): I48.0 - Paroxysmal atrial fibrillation (6) DVT prophylaxis Current Visit: Yes Status: Acute Assessment and plan: Continue home xarelto after [facility]. SCDs for now. - Time Spent With Patient Total time spent is greater than 50% in coordination of care (as documented) at patient's floor/unit and/or counseling patient: less than 15 minutes - Subjective Interval history: Patient had no acute events overnight. He states that he is back to his " normal self." He denies any SOB on RA. He states that he has had good urine output. He denies chest pain, fever, chills, nausea, vomiting, or abdominal pain. He has no complaints at this time. - Constitutional Vitals: Temp Pulse Resp BP Pulse Ox 98.4 F 70 16 127/86 92 08/07/17 11:17 08/07/17 11:17 08/07/17 11:17 08/07/17 11:17 08/07/17 11:17 General appearance: Present: cooperative, A&O X 3, pleasant, no acute distress, obese, answers questions appropriately - Respiratory Respiratory exam: Present: CTAB. Absent: accessory muscle use, rales, rhonchi, wheezes Additional comments: Normal WOB - Cardiovascular Cardiovascular exam: Present: RRR, +S1, +S2. Absent: diastolic murmur, gallop, rubs, systolic murmur Additional comments: 1+ L > R BLE edema - GI/Abdominal GI/Abdominal exam: Present: normal bowel sounds, soft. Absent: distended, hepatomegaly, mass, splenomegaly, tenderness - Psychiatric Psychiatric exam: Present: normal affect, normal mood. Absent: agitated, anxious, depressed - Skin Skin exam: Present: dry, intact, warm. Absent: cyanosis, rash Internal Medicine: Result - Labs CBC & Chem 7: 08/07/17 03:44 08/07/17 03:44 Labs: Short CBC 08/07/17 Range/Units 03:44 WBC 11.3 H (4.3-11.1) K/mcL Hgb 14.4 (12.9-16.9) g/dL Hct 42.3 (37.5-50.1) % Plt Count 182 (140-400) K/mcL Neutrophils # 7.5 (1.6-8.9) K/mcL BMP 08/07/17 03:44 Sodium 141 Potassium 3.2 L Chloride 106 Carbon Dioxide 26 BUN 17 Creatinine 0.99 Glucose 101 Calcium 9.1 Cardiac Enzymes 08/06/17 08/06/17 08/06/17 Range/Units 11:36 17:04 22:54 Troponin I < 0.03 < 0.03 < 0.03 (< 0.04) ng/mL - Impressions Impressions Echocardiogram 08/06/17 11:00 Impressions: LVEF 15-20%. Severe global left ventricular systolic dysfunction. There is no LV thrombus. Definity echo contrast was used. Moderately dilated left ventricle. Indeterminate diastolic function. RV size not optimally visualized. Function appears severely reduced. Doppler not well obtained. Mild-moderate mitral regurgitation. Mild tricuspid regurgitation. Mild pulmonary hypertension. The IVC is dilated. Left Ventricular Wall Motion: Rest Echo Findings The apex, apical inferior, mid inferior, basal inferior, apical anterior, mid anterior, basal anterior, apical septal, mid inferior septal, basal inferior septal, apical lateral, mid anterior lateral, basal anterior lateral, mid anterior septal, mid inferior lateral, basal anterior septal and basal inferior lateral galloway were hypokinetic. Findings: Study Quality * Technically sub-optimal due to poor echocardiographic windows. ECG Findings * Atrial fibrillation/flutter. Left Ventricle * LVEF 15-20%. * Severe global left ventricular systolic dysfunction. * There is no LV thrombus. * Definity echo contrast was used. * Moderately dilated left ventricle. * LV wall thickness measurements not well obtained. * Indeterminate diastolic function. Right Ventricle * RV size not optimally visualized. Function appears severely reduced. Doppler not well obtained. Left Atrium * Moderately dilated left atrium. Right Atrium * Normal right atrial size. Aortic Valve * No aortic regurgitation. * Trileaflet aortic valve. * No aortic stenosis. Mitral Valve * No mitral stenosis. * Normal mitral valve structure. * Mild-moderate mitral regurgitation. Tricuspid Valve * Tricuspid valve not well visualized. * Mild tricuspid regurgitation. * Estimated RA pressure is 8 mmHg. * Estimated RVSP is 41 mmHg. * Mild pulmonary hypertension. Pulmonic Valve * Pulmonic valve is not well visualized. * No pulmonic stenosis. * No pulmonic regurgitation. Pulmonary Artery * Pulmonary artery not well visualized. Aorta * Normally sized aortic root. Pericardium * There is no pericardial effusion present. Interatrial Septum * No evidence of PFO by color Doppler. IVC * The IVC is dilated. * > 50% respiratory change - VTE Documentation of Mechanical Device: Intermittent pneumatic compression device Contraindication No Overlap Therapy: Admin of oral Factor Xa Inhibitor Consult Discharge Plan - Plan Referrals: Bradley Lu MD [Primary Care Provider] - 08/14/17 10:30 am
[2017-08-08 05:16] LABS: Basophils # 0.1 K/mcL (0.0-0.2); Basophils % 1.1 %; Eosinophils # 0.3 K/mcL (0.0-0.6); Eosinophils % 2.3 %; Immature Granulocytes % 0.3 % (0-4); Lymphocytes # 2.8 K/mcL (0.6-4.6); Lymphocytes % 26.2 %; Mean Corpuscular HGB Conc 34.9 g/dL (31.6-35.5); Mean Corpuscular Hemoglobin 32.4 pg (28.0-33.3); Mean Corpuscular Volume 92.9 fL (83.0-100.0); Mean Platelet Volume 10.9 fL (9.4-12.4); Monocytes # 0.9 K/mcL (0.0-1.3); Monocytes % 7.9 %; Neutrophils # 6.7 K/mcL (1.6-8.9); Platelet Count 174 K/mcL (140-400); Red Blood Count 4.63 M/mcL (4.19-5.50); Red Cell Distribution Width 13.4 % (11.5-14.5); Segmented Neutrophils % 62.2 %
[2017-08-08 05:36] LABS: BUN/Creatinine Ratio 24 (6-26); Blood Urea Nitrogen 22 mg/dL (8-23); Calcium 8.9 mg/dL (8.6-10.3); Carbon Dioxide 26 mEq/L (23-29); Chloride 108 mEq/L (98-107); Glucose 110 mg/dL (70-105); Osmolality,Calculated 298 (280-300); Potassium 3.4 mEq/L (3.5-5.1); Sodium 142 mEq/L (136-145); eGFR For African Americans > 60 (> 60); eGFR For Non-African Americans > 60 (> 60)
--- NOTE | 2017-08-08 07:43 | Internal Med Progress Note ---
Date of Encounter: 08/08/17 Time of Encounter: 07:41 - Assessment and plan (1) Congestive heart failure Current Visit: Yes Status: Acute Assessment and plan: Diuresing well and symptoms improving. TTE this hospitalization showed LVEF 15- 20%, severe global systolic reduction, moderately dilated LV, indeterminate diastolic function, RV size not well visualized, however RV function appears severely reduced, mild-moderate MR, mild TR, mild PH. Troponin trended negative x 3. Cardiology consulted; appreciate input. Plan for [facility] today. Continue IV lasix 40 mg BID. Continue fluid restriction and cardiac diet. Monitor strict I&Os and daily weights. Recheck labwork in AM. Qualifiers: Heart failure type: diastolic Heart failure chronicity: acute on chronic Qualified Code(s): I50.33 - Acute on chronic diastolic (congestive) heart failure (2) Hypokalemia Current Visit: Yes Status: Acute Assessment and plan: Give KCl 40 mEq PO once. Recheck BMP in AM. (3) Hypertension Current Visit: Yes Status: Chronic Assessment and plan: Continue home medications. Qualifiers: Hypertension type: essential hypertension Qualified Code(s): I10 - Essential (primary) hypertension (4) Diabetes mellitus, type 2 Current Visit: Yes Status: Chronic Assessment and plan: Continue accuchecks and SSI QID AC/HS. Continue home long-acting insulin. Qualifiers: Diabetes mellitus fpc insulin use: with fpc use Diabetes mellitus complication status: with circulatory complication Diabetes mellitus complication detail: with other circulatory complications Qualified Code(s): E11.59 - Type 2 diabetes mellitus with other circulatory complications; Z79.4 - [facility] (current) use of insulin (5) Coronary artery disease Current Visit: Yes Status: Chronic Assessment and plan: Continue home medications. Cardiology consulted as per above; appreciate input. Plan for [facility] today. Qualifiers: Coronary Disease-Associated Artery/Lesion type: [place] artery [place] vs. transplanted heart: [place] heart Associated angina: without angina Qualified Code(s): I25.10 - Atherosclerotic heart disease of [place] coronary artery without angina pectoris (6) Atrial fibrillation Current Visit: Yes Status: Chronic Assessment and plan: Rate controlled. Continue Cardizem. Restart Xarelto after [facility] today. Qualifiers: Atrial fibrillation type: paroxysmal Qualified Code(s): I48.0 - Paroxysmal atrial fibrillation (7) DVT prophylaxis Current Visit: Yes Status: Acute Assessment and plan: Continue home xarelto after [facility] today. SCDs for now. - Time Spent With Patient Total time spent is greater than 50% in coordination of care (as documented) at patient's floor/unit and/or counseling patient: less than 15 minutes - Subjective Interval history: Patient had no acute events overnight. He states that he is doing "well." He denies any SOB. BLE edema is improved. He states that he has had good urine output. He denies chest pain, fever, chills, nausea, vomiting, or abdominal pain. He has no complaints at this time. - Constitutional Vitals: Temp Pulse Resp BP Pulse Ox 97.8 F 62 16 154/90 97 08/08/17 07:02 08/08/17 07:02 08/08/17 07:02 08/08/17 07:02 08/08/17 07:02 General appearance: Present: cooperative, A&O X 3, pleasant, no acute distress, obese, answers questions appropriately - Respiratory Respiratory exam: Present: CTAB. Absent: accessory muscle use, rales, rhonchi, wheezes Additional comments: Normal WOB - Cardiovascular Cardiovascular exam: Present: RRR, +S1, +S2. Absent: diastolic murmur, gallop, rubs, systolic murmur Additional comments: Trace BLE edema - GI/Abdominal GI/Abdominal exam: Present: normal bowel sounds, soft. Absent: distended, hepatomegaly, mass, splenomegaly, tenderness - Psychiatric Psychiatric exam: Present: normal affect, normal mood. Absent: agitated, anxious, depressed - Skin Skin exam: Present: dry, intact, warm. Absent: cyanosis, rash Internal Medicine: Result - Labs CBC & Chem 7: 08/08/17 04:55 08/08/17 04:55 Labs: Short CBC 08/08/17 Range/Units 04:55 WBC 10.8 (4.3-11.1) K/mcL Hgb 15.0 (12.9-16.9) g/dL Hct 43.0 (37.5-50.1) % Plt Count 174 (140-400) K/mcL Neutrophils # 6.7 (1.6-8.9) K/mcL BMP 08/08/17 04:55 Sodium 142 Potassium 3.4 L Chloride 108 H Carbon Dioxide 26 BUN 22 Creatinine 0.92 Glucose 110 H Calcium 8.9 - Impressions Impressions Echocardiogram 08/06/17 11:00 Impressions: LVEF 15-20%. Severe global left ventricular systolic dysfunction. There is no LV thrombus. Definity echo contrast was used. Moderately dilated left ventricle. Indeterminate diastolic function. RV size not optimally visualized. Function appears severely reduced. Doppler not well obtained. Mild-moderate mitral regurgitation. Mild tricuspid regurgitation. Mild pulmonary hypertension. The IVC is dilated. Left Ventricular Wall Motion: Rest Echo Findings The apex, apical inferior, mid inferior, basal inferior, apical anterior, mid anterior, basal anterior, apical septal, mid inferior septal, basal inferior septal, apical lateral, mid anterior lateral, basal anterior lateral, mid anterior septal, mid inferior lateral, basal anterior septal and basal inferior lateral galloway were hypokinetic. Findings: Study Quality * Technically sub-optimal due to poor echocardiographic windows. ECG Findings * Atrial fibrillation/flutter. Left Ventricle * LVEF 15-20%. * Severe global left ventricular systolic dysfunction. * There is no LV thrombus. * Definity echo contrast was used. * Moderately dilated left ventricle. * LV wall thickness measurements not well obtained. * Indeterminate diastolic function. Right Ventricle * RV size not optimally visualized. Function appears severely reduced. Doppler not well obtained. Left Atrium * Moderately dilated left atrium. Right Atrium * Normal right atrial size. Aortic Valve * No aortic regurgitation. * Trileaflet aortic valve. * No aortic stenosis. Mitral Valve * No mitral stenosis. * Normal mitral valve structure. * Mild-moderate mitral regurgitation. Tricuspid Valve * Tricuspid valve not well visualized. * Mild tricuspid regurgitation. * Estimated RA pressure is 8 mmHg. * Estimated RVSP is 41 mmHg. * Mild pulmonary hypertension. Pulmonic Valve * Pulmonic valve is not well visualized. * No pulmonic stenosis. * No pulmonic regurgitation. Pulmonary Artery * Pulmonary artery not well visualized. Aorta * Normally sized aortic root. Pericardium * There is no pericardial effusion present. Interatrial Septum * No evidence of PFO by color Doppler. IVC * The IVC is dilated. * > 50% respiratory change - VTE Documentation of Mechanical Device: Intermittent pneumatic compression device Contraindication No Overlap Therapy: Admin of oral Factor Xa Inhibitor Consult Discharge Plan - Plan Referrals: Bradley Lu MD [Primary Care Provider] - 08/14/17 10:30 am
[2017-08-08] MEDS: Budesonide/Formoterol 80/4.5 MDI IH SCH ×2 (07:52→21:17)
[2017-08-08] MEDS: Furosemide 40 MG/4 ML VIAL IVP SCH ×2 (08:09→17:45)
[2017-08-08] MEDS: Metoprolol XL (24 HR) Succ 25 MG TAB.ER.24H PO SCH (08:10)
[2017-08-08] MEDS: hydrALAZINE 25 MG TABLET PO SCH ×3 (08:10→20:25)
[2017-08-08] MEDS: Diltiazem CD (24hr) 120 MG CAPSULE PO SCH (08:11)
[2017-08-08] MEDS: Multivit/Ca/Min/Fe/FA 1 TAB TABLET PO SCH (08:11)
[2017-08-08] MEDS: Insulin DETEMIR 100 UNIT/ML X5UNITS SQ SCH ×2 (08:24→17:45)
--- NOTE | 2017-08-08 09:14 | Event Note ---
Date of Encounter: 08/08/17 Time of Encounter: 09:13 - Cardiology Event Note TTE with LVEF 15-20%, severe global systolic reduction, moderately dilated LV, indeterminate diastolic function, RV size not well visualized, however RV function appears severely reduced, mild-moderate MR, mild TR, mild PH. Previous TTE 2015 with LVEF 50%. Known history of CAD. Last C 2012 with proximal LAD with patent stents, mid LAD 40% stenosis, 70-80% diagonal 1 ISR, 30% ISR proximal LAD, balloon angioplasty was performed on proximal LAD and diagonal, 40% OM1, 50% ramus, 50% distal RCA, 30% RPDA. ECG with new LBBB. Given newly reduced EF, new LBBB, and known CAD hx, recommend [facility]. R/B/A discussed. Pt agrees to proceed. Resting comfortably, able to lie flat. [facility] today.
[2017-08-08 09:58] LABS: INR 1.4; Prothrombin Time 16.1 Seconds (9.4-12.1)
[2017-08-08] MEDS ORDERED: *HR* Heparin 10,000 UNIT/10 ML VIAL ONE (15:23)
[2017-08-08] MEDS ORDERED: 0.9 % Sodium Chloride 1,000 ML ONE ×2 (15:23→15:42)
[2017-08-08] MEDS ORDERED: Heparin 1,000 UNITS/500 mL 500 ML ONE (15:23)
[2017-08-08] MEDS ORDERED: ISOVUE-370 200 ML INFUS..BTL IV ONE (15:23)
[2017-08-08] MEDS ORDERED: Nitroglycerin 1,000 MCG/10 ML VIAL IV ONE (15:30)
[2017-08-08] MEDS ORDERED: *HR* FentaNYL (PF) 100 MCG/2 ML VIAL ONE (15:50)
[2017-08-08] MEDS ORDERED: *HR* Midazolam HCl 2 MG/2 ML VIAL ONE (15:50)
--- NOTE | 2017-08-08 16:44 | Pre-Sedation Evaluation ---
Pre-sedation evaluation - Pre-sedation checklist Date of procedure: 08/08/17 Procedure: Heart cath Recent Vitals: Last Vital Signs Temp 97.5 F L 08/08/17 15:26 Pulse 52 08/08/17 15:26 Resp 18 08/08/17 15:26 BP 115/77 08/08/17 15:26 Pulse Ox 97 08/08/17 15:26 H&P (including ROS) documented in medical record: Yes Previous reaction to sedatives/anesthetics: No Dietary Status: NPO after Midnight Airway Assessment: Patient can open mouth completely, TMJ function normal, Micrognathia (under-bite, receding chin) absent, Neck with adequate range of motion Dentition: No loose teeth or bridges Possible difficult airway: Yes If Yes;: Morbid obesity ASA Classification *see protocol: CLASS II-Mild systemic disease Plan of Care: Pt appropriate candidate for procedure/moderate/conscious sedation , Risks/benefits of procedure/sedation discussed w/ patient/family Cardiac Registry (Cardio Only) - Functional Capacity Functional Capacity: < 4 METS - Clincal Frailty Scale Clinical Frailty Scale: Vulnerable
--- NOTE | 2017-08-08 16:52 | Invasive Diagnostic Lab Proc ---
Name: Lion Castano Date of Study: 08/08/2017 Date: 1950 Ht: 75.0in Medical Record#: [id number] Age: 66 Wt: 282.63lb Gender: Male BSA: 2.54 Order #: [id number] BMI: 35.33 Physicians Procedure Physician: Lizett Espinosa MD, FACC Referring MD: Referring MD: Staff Name Position Time In Chantel Magana RN Criminology Professor 03:47 PM Juany Jaramillo RN Criminology Professor 03:47 PM Wilmer Newsome RT (R) Scrub 04:04 PM Christa Newsome RT (R) Monitor 04:04 PM Indications Indication Abnormal Test - ECHO Procedures Performed Procedure L HRT ARTERY/VENTRICLE ANGIO Pre-Procedure Checklist Informed consent is complete signed and on chart. H&P is on chart. ID band is on and ID verified with patient. Patient NPO for procedure The procedure was described for the patient and questions were answered. Blood Pressure: 154/90 ECG is on chart. Plan of Care Patient will tolerate the procedure without complications. Adequate level of comfort will be maintained. Hemodynamics will remain stable Patient will recover from procedure without complications. Respiratory function will be maintained. Cardiac rhythm will remain stable. Patient temperature will be maintained. Patient and/or family have verbalized understanding of the procedure. Patient Education Chief Complaint/Reason for Test: Cardiac Cath Developmental Category: Adult (18-64 years) Developmentally Appropriate for Age: Yes Learning Barriers: None Education Needs: Procedure Education Method: Verbal Information Taught: Cardiac Cath Educational Evaluation: Able to repeat information Intravenous Access Time IV Size Location DC'd Fluid/Drip Rate Units RN 03:48 PM Started with 20g 1 1/4" Lt Hand 0.9NaCl 25 ml/hr Chantel Magana RN 03:46 PM 20g 1 1/4" Peripheral-Lock On Arrival Lt Arm Yes Allergies NKA Vital Signs Time BP (mmHg) HR (bpm) O2 Sat. RR (bpm) LOC 03:48 PM 154 / 90 62 95 % 18 5 = Fully awake and oriented or at pre-proc level 04:05 PM / % 4 = Oriented but drowsy 04:05 PM / % 4 = Oriented but drowsy 03:58 PM 133 / 95 67 96 % 04:03 PM 133 / 80 81 94 % 04:08 PM 116 / 83 80 91 % 04:13 PM 128 / 79 71 92 % 04:18 PM 124 / 82 68 90 % 04:23 PM 125 / 76 65 92 % Procedural Medications Time Medication Dose Units Method Given By 04:04 PM Versed 2 mg Intravenous Juany Jaramillo RN 04:05 PM Fentanyl 50 mcg Intravenous Juany Jaramillo RN 04:05 PM Oxygen 2 L/min nasal cannula Juany Jaramillo RN 04:05 PM Lidocaine 2% 18 ml Subcutaneous Lizett Espinosa MD, FAC 04:08 PM Oxygen 4 L/min nasal cannula Juany Jaramillo RN ASA Classification: CLASS III- Severe systemic disease (i.e. prior AMI, diabetes with vascular complications, morbid obesity) Alexa Score Preprocedure Postprocedure Activity 2- Moves 4 extremities sustained head lift Activity 2- Moves 4 extremities sustained head lift Circulation 2- SBP +/= 20 points of pre-anesthetic level Circulation 2- SBP +/= 20 points of pre-anesthetic level Consciousness 2- Awake and alert oriented x 3 Consciousness 2- Awake and alert oriented x 3 O2 Saturation 2- Able to maintain O2 satruation of 92% on room air O2 Saturation 2- Able to maintain O2 satruation of 92% on room air Respiratory 2- Able to deep breathe and cough well Respiratory 2- Able to deep breathe and cough well Total Score 10 Total Score 10 Contrast Agent: Isovue Diagnostic Contrast: 100 ml Total Contrast: 100 ml Fluoro Dose: 66361 mGy Procedure Log Time Note Enter By 03:36 PM Patient charges- Angio tray pack, Navilyst 3mm J, Pulse Oximetry and ACIST tubing and transducer [email or web address] 03:45 PM CathStat 03:46 PM Pt arrived to general laborer 2 at 15:46 [email or web address] 03:46 PM Case Delayed No [email or web address] 03:46 PM Physician arrived 15:46 [email or web address] 03:46 PM Meet and greet completed [email or web address] 03:46 PM Sign in performed according to hospital policy. [email or web address] 03:47 PM Procedure start 15:46 [email or web address] 03:47 PM ASA Class CLASS III- Severe systemic disease (i.e. prior AMI, diabetes with vascular complications, morbid obesity) [email or web address] 03:47 PM Time: 15:47 Patient comfortable and pain free: Yes [email or web address] 03:47 PM Time: 15:47LOC: 5 = Fully awake and oriented or at pre-proc level bw 03:47 PM Chantel Magana RN Position: Criminology Professor Time in: 15:47 bw 03:47 PM Juany Jaramillo RN Position: Criminology Professor Time in: 15:47 03:57 PM Vitals capture started with the following parameters, Patient=Adult, Interval=5 min, Initial Adpybhcz=902 mmHg, Deflation Rate=5 mmHg, Cuff placed on Right Arm 03:58 PM HR=67 bpm, UHTH=689/95 mmhg, SpO2=96.0 % 04:03 PM HR=81 bpm, GGCV=107/80 mmhg, SpO2=94.0 % 04:04 PM Wilmer Newsome RT (R) Position: Scrub Time in: 16: 04: PM Christa Newsome RT (R) Position: Monitor Time in: 16: 04:04 PM Time: 16:04 Versed 2 mg Intravenous Given by Juany Jaramillo RN 04:05 PM Time: 16:05 Fentanyl 50 mcg Intravenous Given by Juany Jaramillo RN 04: PM Time: 16:05 Oxygen on at 2 L/min per nasal cannula by Juany Jaramillo RN 04:05 PM Time: 16:05 Patient comfortable and pain free: Yes :05 PM Time: 16:05LOC: 4 = Oriented but drowsy tw 04:05 PM Time out performed according to hospital policy 04:05 PM Time: 16:05 18 ml Lidocaine 2% to right groin Subcutaneous Given by Lizett Espinosa MD, [facility] 04: PM Pressure channel 1 zeroed. 04:06 PM Access obtained by percutaneous puncture. 5Fr 10cm Terumo [place] sheath placed in right Femoral artery. [id number] tw 04: PM 5Fr FL 4 catheter inserted over the wire DNC tw 04:06 PM Wire removed tw 04:06 PM Recorded Pressure: Ao, HR=68, Condition=Condition 1 (Aorta) Ao 107/79/93 04:06 PM LCA angiography performed in multiple views. twilson 04:07 PM Recorded Pressure: Ao, HR=65, Condition=Condition 1 (Aorta) Ao 111/83/97 04:08 PM HR=80 bpm, LBLX=946/83 mmhg, SpO2=91.0 % 04:08 PM Time: 16:08 Oxygen on at 4 L/min per nasal cannula by Juany Jaramillo RN twilson 04:10 PM Wire reinserted. twilson 04:10 PM Catheter removed twilson 04:10 PM 5Fr FR 4 catheter inserted over the wire [facility] twilson 04:12 PM Wire reinserted. twilson 04:12 PM Catheter removed twilson 04:12 PM 5Fr 3DRC catheter inserted over the wire [id number] twilson 04:12 PM Wire removed twilson 04:13 PM HR=71 bpm, WYUO=585/79 mmhg, SpO2=92.0 % 04:13 PM RCA angiography performed in multiple views. twilson 04:13 PM Recorded Pressure: Ao, HR=75, Condition=Condition 1 (Aorta) Ao 115/85/100 04:15 PM Recorded Pressure: Ao, HR=65, Condition=Condition 1 (Aorta) Ao 112/82/98 04:15 PM Wire reinserted. twilson 04:15 PM Catheter removed twilson 04:15 PM 5Fr Pigtail catheter inserted over the wire [facility] twilson 04:16 PM Catheter selectively placed in left ventricle twilson 04:16 PM Wire removed twilson 04:17 PM Pressure channel 1 zero failed. 04:17 PM Pressure channel 1 zeroed. 04:17 PM Recorded Pressure: LV, HR=70, Condition=Condition 1 (Left Ventricle) LV 120/3/11 04:17 PM Bolus angiogram of left Ventricle complete: 10 ml/sec for a total of 30 mls twilson 04:17 PM Recorded Pressure: LV, Ao, HR=74, Condition=Condition 1 (Left Ventricle) LV 91/37/21, (Aorta) Ao 98/72/87 04:18 PM HR=68 bpm, GKRU=586/82 mmhg, SpO2=90.0 % 04:18 PM Wire reinserted. twilson 04:18 PM Catheter removed twilson 04:18 PM Wire removed twilson :20 PM Time: 16:05 Patient comfortable and pain free: Yes tw:20 PM Time: 16:05LOC: 4 = Oriented but drowsy twilson 04:20 PM Bolus angiogram of right Femoral complete: 2 ml/sec for a total of 4 mls twilson : PM Coronary Dominance: right twilson :21 PM Procedure completed at 16:21 08/08/2017 twilson 04:21 PM Did you address ALEX flow and Dominance? Yes twilson 04:21 PM Sign out completed: Radiation Dose 949.02 mGy, 68074 cGy/cm2 Fluoro Time: 3.7 Isovue 370 - 200ml contrast 100 ml given by Lizett Espinosa MD, [facility]. Complications: NoneCardiac Rehab Consult needed: NoConfirmed administered medications: Yes twilson 04:22 PM Isovue 370 - 200ml,1 Bottle(s) used. twilson 04:22 PM Arterial sheath pulled, Mynx closure device used and was Successful S/N. twilson 04:22 PM Estimated Blood Loss: minimal twilson 04:23 PM Post Blood Pressure 124/82 twilson 04:23 PM 16:23 Post Pulses Bilateral DP & PT 1+ twilson 04:23 PM 16:23 Post Pulses Bilateral radial 2+ twilson 04:23 PM HR=65 bpm, XZIO=565/76 mmhg, SpO2=92.0 % 04:23 PM Information taught Cardiac Cath and Mynx twilson 04:23 PM Education needs Procedure, Plan of Care, and Responsibilities of Patient in Care twilson 04:23 PM Learning barriers :None twilson 04:23 PM Education Methods Verbal twilson 04:23 PM Education evaluation Able to repeat information twilson 04:23 PM Site status No bleeding/hematoma - Rt Groin as reported by Wilmer Newsome RT (R) at 16:23 twilson 04:24 PM Opsite applied twilson 04:24 PM Plavix, Effient or Brilinta given No twilson 04:24 PM Delay to floor No twilson 04:24 PM Family placed in consult room. twilson 04:29 PM What is the NYHA Class? Class 3 twilson 04:32 PM Lesion found in Proximal RCA. Pre Stenosis: 30 Pre ALEX Flow: twilson 04:32 PM Lesion found in Mid RCA. Pre Stenosis: 25 Pre ALEX Flow: twilson 04:32 PM Lesion found in Distal RCA. Pre Stenosis: 50 Pre ALEX Flow: twilson 04:33 PM Lesion found in Proximal LAD. Pre Stenosis: 30 Pre ALEX Flow: twilson 04:33 PM Lesion found in 1st Diagonal. Pre Stenosis: 30 Pre ALEX Flow: twilson 04:33 PM Proximal Left Anterior Descending Coronary Artery with 30% stenosis. If graft is supplying this territory, 0 % stenosis. twilson 04:33 PM Mid/Distal Left Anterior Descending Coronary Artery and diagonal branches with 30% stenosis. If graft is supplying this area, 0 % stenosis twilson 04:33 PM Lesion found in Proximal Circumflex. Pre Stenosis: 40 Pre ALEX Flow: twilson 04:33 PM Circumflex, Obtuse Marginal, Left Posterior Descending, and Left Posterolateral Coronary Arteries with 40 % stenosis. If graft is supplying this area, 0 % stenosis twilson 04:33 PM Lesion found in 1st Marginal. Pre Stenosis: 30 Pre ALEX Flow: twilson 04:34 PM Lesion found in Ramus. Pre Stenosis: 30 Pre ALEX Flow: twilson 04:34 PM Ramus with 30% stenosis. If graft is supplying this area, 0 % stenosis twilson 04:35 PM Report given to Gurpreet MADDOX Pt taken to Room #12. 16:35 twilson 04:35 PM Time: 16:20 Patient comfortable and pain free: Yes twilson 04:35 PM Patient out of room: 16:35 twilson 04:35 PM Lesion found in Right PDA. Pre Stenosis: 99 Pre ALEX Flow: twilson 04:35 PM Lesion found in RPAV. Pre Stenosis: 99 Pre ALEX Flow: twilson 04:36 PM Right Coronary, Right Posterior Descending Arteries with Right Posterolateral and Acute Marginal branches with 99 % stenosis. If graft is supplying this area, 0 % stenosis twilson Complications Complication None Hemodynamics Pressures Site Systolic/A Wave Diastolic/V Wave Mean AO 107 79 93 AO 111 83 97 AO 115 85 100 AO 112 82 98 LV 120 3 11 LV 91 37 21 AO 98 72 87 Post Procedure Information Blood Pressure: 124/82 mmHg Post procedural instructions were given Closure Device Time Device Success/Fail 08/08/2017 4:31:00 PM MynxGrip Successful Site Checks Time Location Status Staff Sheath In? Note 04:23 PM Rt Groin No bleeding/hematoma Wilmer Newsome RT (R) Pulses Time Site Pre-Procedure Post-Procedure Note 08/08/2017 3:36:00 PM Bilateral DP & PT 1+ 08/08/2017 3:36:00 PM Bilateral radials 2+ 4:23:00 PM Bilateral DP & PT 1+ 4:23:00 PM Bilateral radial 2+ Updated by Christa Newsome RT (R) on 08/08/2017 4:42:40 PM electronically signed on 08/08/2017 4:43:27 PM with status of Final
[2017-08-08] MEDS ORDERED: Aspirin 81 MG TAB.CHEW ONE (17:36)
[2017-08-08] MEDS: Aspirin Enteric Coated 81 MG Tablet PO SCH (17:45)
[2017-08-08] MEDS: Metoprolol XL (24 HR) Succ 50 MG TAB.ER.24H PO SCH (20:25)
[2017-08-09 04:00] LABS: Basophils # 0.1 K/mcL (0.0-0.2); Eosinophils # 0.2 K/mcL (0.0-0.6); Hematocrit 42.7 % (37.5-50.1); Hemoglobin 14.6 g/dL (12.9-16.9); Immature Granulocytes % 0.3 % (0-4); Lymphocytes # 2.7 K/mcL (0.6-4.6); Lymphocytes % 23.8 %; Mean Corpuscular HGB Conc 34.2 g/dL (31.6-35.5); Mean Corpuscular Hemoglobin 31.3 pg (28.0-33.3); Mean Corpuscular Volume 91.4 fL (83.0-100.0); Mean Platelet Volume 10.9 fL (9.4-12.4); Monocytes % 8.4 %; Neutrophils # 7.5 K/mcL (1.6-8.9); Platelet Count 190 K/mcL (140-400); Red Blood Count 4.67 M/mcL (4.19-5.50); Red Cell Distribution Width 13.5 % (11.5-14.5); Segmented Neutrophils % 64.5 %
[2017-08-09 04:15] LABS: BUN/Creatinine Ratio 18 (6-26); Blood Urea Nitrogen 19 mg/dL (8-23); Calcium 9.1 mg/dL (8.6-10.3); Carbon Dioxide 28 mEq/L (23-29); Chloride 103 mEq/L (98-107); Glucose 93 mg/dL (70-105); Osmolality,Calculated 294 (280-300); Potassium 3.3 mEq/L (3.5-5.1); Sodium 141 mEq/L (136-145); eGFR For African Americans > 60 (> 60); eGFR For Non-African Americans > 60 (> 60)
[2017-08-09] MEDS: Metoprolol XL (24 HR) Succ 50 MG TAB.ER.24H PO SCH (08:02)
[2017-08-09] MEDS: Multivit/Ca/Min/Fe/FA 1 TAB TABLET PO SCH (08:02)
[2017-08-09] MEDS: hydrALAZINE 25 MG TABLET PO SCH ×2 (08:03→15:34)
[2017-08-09] MEDS: Aspirin Enteric Coated 81 MG Tablet PO SCH (08:03)
[2017-08-09] MEDS: Furosemide 40 MG/4 ML VIAL IVP SCH (08:03)
[2017-08-09] MEDS: Insulin DETEMIR 100 UNIT/ML X5UNITS SQ SCH ×2 (10:28→10:48)
[2017-08-09 10:58] VITALS: BP 115/75
[2017-08-09] MEDS: Budesonide/Formoterol 80/4.5 MDI IH SCH (11:21)
--- NOTE | 2017-08-09 11:41 | Cardiology Progress Note ---
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 -TTE with LVEF 15-20%, severe global systolic reduction, moderately dilated LV, indeterminate diastolic function, RV size not well visualized, however RV function appears severely reduced, mild-moderate MR, mild TR, mild PH. -Previous TTE 2015 with LVEF 50%. -On lasix 40mg IV BID. S/p LHC with no intervention. EF 30%. There was three vessel CAD. Prior stents patent. There was a 50% in-stent restenosis in the Distal RCA. 99% stenosis in the Right PDA (bifurcating lesion). 99% stenosis in the RPAV (bifurcating lesion). Mild disease otherwise. Medical management recommended. NICMP. Net negative 1363ml for stay. SOB improved. Trace ankle edema noted. Recommend starting maintenance oral lasix . Potassium 3.3- oral potassium given. CHF education discussed. Daily weights and low sodium diet. Continue cozaar and toprol XL. Cardiology will sign off. Out-pt f/u in one week in cardiology clinic will be scheduled. (2) Coronary artery disease Current Visit: Yes Status: Chronic Per cardiology: -Known history of CAD. [facility] completed yesterday reviewed above. No intervention. ON asa, plavix, statin, BB, arb. Qualifiers: Coronary Disease-Associated Artery/Lesion type: [place] artery [place] vs. transplanted heart: [place] heart Associated angina: without angina Qualified Code(s): I25.10 - Atherosclerotic heart disease of [place] coronary artery without angina pectoris (3) Atrial fibrillation Current Visit: Yes Status: Chronic Per cardiology: -Known history of PAF. -ON BB, CCB HR controlled. -ON xarelto for antiocagulation. Qualifiers: Atrial fibrillation type: paroxysmal Qualified Code(s): I48.0 - Paroxysmal atrial fibrillation Discussion w patient/family: The assessment and plan as outlined above was discussed with the patient and/or family members who expressed understanding and agreement. All questions were answered. Thank you for involving us in the care of your patient. Please call with any questions. Subjective Principal diagnosis: CHF, cardiomyoapthy Objective Vital Signs, Last 4 Hours Temp Pulse Resp BP Pulse Ox 08/09/17 10:56 98.4 F 74 16 115/75 95 Results 08/09/17 03:24 08/09/17 03:24 Lab Results 08/09/17 08/09/17 03:24 03:24 WBC 11.5 H Hgb 14.6 Hct 42.7 Plt Count 190 Sodium 141 Potassium 3.3 L Chloride 103 Carbon Dioxide 28 BUN 19 Creatinine 1.06 Glucose 93 Calcium 9.1 - VTE Documentation of Mechanical Device: Intermittent pneumatic compression device Contraindication No Overlap Therapy: Admin of oral Factor Xa Inhibitor Consult Discharge Plan - Plan Referrals: [facility] [Provider Group] Bradley Lu MD [Primary Care Provider] - 08/14/17 10:30 am
--- NOTE | 2017-08-09 15:00 | Discharge Summary ---
- NOTES TO OUTPATIENT PROVIDER Notes to Outpatient Provider: Follow up with PCP in 2-3 days after discharge. Recheck BMP and CBC at that time. Follow up with cardiology as directed. Orders not resulted at time of discharge: Pending orders 08/10/17 04:00 Basic Metabolic Panel AM 0400 CBC [Complete Blood Count] [HEME] AM 0400 Date of Encounter: 08/09/17 Time of Encounter: 08:07 - Discharge Diagnosis (1) Congestive heart failure Priority: Primary Status: Acute Qualifiers: Heart failure type: combined systolic and diastolic Heart failure chronicity: acute on chronic Qualified Code(s): I50.43 - Acute on chronic combined systolic (congestive) and diastolic (congestive) heart failure (2) Hypokalemia Priority: Secondary Status: Acute (3) Hypertension Priority: Secondary Status: Chronic Qualifiers: Hypertension type: essential hypertension Qualified Code(s): I10 - Essential (primary) hypertension (4) Diabetes mellitus, type 2 Priority: Secondary Status: Chronic Qualifiers: Diabetes mellitus jail insulin use: with termite control servicer use Diabetes mellitus complication status: with circulatory complication Diabetes mellitus complication detail: with other circulatory complications Qualified Code(s): E11.59 - Type 2 diabetes mellitus with other circulatory complications; Z79.4 - termite control servicer (current) use of insulin (5) Coronary artery disease Priority: Secondary Status: Chronic Qualifiers: Coronary Disease-Associated Artery/Lesion type: [place] artery [place] vs. transplanted heart: [place] heart Associated angina: without angina Qualified Code(s): I25.10 - Atherosclerotic heart disease of [place] coronary artery without angina pectoris (6) Atrial fibrillation Priority: Secondary Status: Chronic Qualifiers: Atrial fibrillation type: paroxysmal Qualified Code(s): I48.0 - Paroxysmal atrial fibrillation (7) DVT prophylaxis Priority: Secondary Status: Acute Hospital course: Mr. Castano is a 66 year old male admitted for dyspnea secondary to acute diastolic congestive heart failure. He was admitted for observation to general medical floor with telemetry. Home medications were continued. He was started on IV lasix 40 mg BID. He diuresed well with good urine output. Respiratory status was back to baseline the next day. Swelling greatly improved. ECHO showed LVEF 15-20% (55% previously), severe global systolic reduction, moderately dilated LV, indeterminate diastolic function, RV size not well visualized, however RV function appears severely reduced, mild-moderate MR, mild TR, mild PH. Cardiology was consulted. He had LHC with no interventions, EF 30%, three vessel CAD, and prior stents patent. He was referred to cardiac rehab. He was started on home maintenance lasix 40 mg PO QD. He had mild hypokalemia, and was repleted with KCl. He will follow up with PCP in 2-3 days after discharge. BMP and CBC can be rechecked at that time. He will follow up with cardiology as directed. Patient has met maximum benefit of this hospitalization and will be discharged home in stable condition. Discharge discussed with: patient, nurse - Time Spent with Patient Total time spent providing and/or coordinating discharge services: Less than 30 minutes - Discharge Medications Prescriptions: Furosemide [Lasix] 40 mg PO DAILY 7 Days #7 tablet Metoprolol XL (24 HR) Succ [Toprol Xl] 100 mg PO BID 7 Days #14 tab.er.24h Home Medications: Albuterol Sulfate [Proair Hfa] 1 - 2 puff IH BID PRN 08/06/17 [History] Aspirin Enteric Coated [Aspirin EC] 325 mg PO DAILY 08/06/17 [History] Atorvastatin Calcium 80 mg PO QPM 08/06/17 [History] Budesonide/Formoterol 80/4.5 [Symbicort 80/4.5] 2 puff IH BID 08/06/17 [History ] Clopidogrel Bisulfate [Plavix] 75 mg PO DAILY 08/06/17 [History] Diltiazem CD (24hr) [Cardizem CD] 120 mg PO DAILY 08/06/17 [History] Diphenhydramine HCl [Nighttime Sleep Aid] 100 mg PO HS 08/06/17 [History] Hydralazine HCl 100 mg PO TID 08/06/17 [History] Insulin Glargine [Lantus] 25 unit SQ QAM 08/06/17 [History] Insulin Glargine [Lantus] 25 unit SQ QPM 08/06/17 [History] Insulin LISPRO [HumaLOG] 6 units SQ TID 08/06/17 [History] Losartan Potassium [Cozaar] 50 mg PO DAILY 08/06/17 [History] Metoprolol Succinate [Toprol Xl] 75 mg PO BID 08/06/17 [History] Multivitamin-Min/Iron/FA/Vit K [Multi-Day Plus Minerals Tablet] 1 tab PO DAILY 08/06/17 [History] Nitroglycerin [Nitrostat] 0.4 mg SL Q5M PRN 08/06/17 [History] Rivaroxaban [Xarelto] 20 mg PO QPM 08/06/17 [History] Tamsulosin [Flomax] 0.4 mg PO DAILY 08/06/17 [History] Furosemide [Lasix] 40 mg PO DAILY 7 Days #7 tablet 08/09/17 [Rx] Metoprolol XL (24 HR) Succ [Toprol Xl] 100 mg PO BID 7 Days #14 tab.er.24h 08/09 [Rx] Allergies/Adverse Reactions: 3 Allergy/AdvReac Type Severity Reaction Status Date / Time No Known Allergies Allergy Verified 08/06/17 07:35 Date of admission: 08/06/17 09:18 Primary care physician: Bradley Lu Consults: 08/06/17 10:59 Consult to Nurse Navigator [CONS] Routine Comment: 08/07/17 09:57 Consult to Cardiology [CONS] Routine Comment: Consulting Provider: [facility] Reason for Consult: Acute Systolic CHF Call Completed: Yes 08/09/17 12:02 Consult to Cardiac Rehabilitation-Phase1 [CONS] Routine Comment: Reason for Consult: New cardiomyoapthy Call Completed: No Discharging clinician: Alonso Ahumada Anticipated date of discharge: 08/09/17 - Constitutional Vitals: Temp Pulse Resp BP Pulse Ox 98.4 F 74 16 115/75 95 08/09/17 10:56 08/09/17 10:56 08/09/17 10:56 08/09/17 10:56 08/09/17 10:56 General appearance: Present: cooperative, A&O X 3, pleasant, no acute distress, obese, answers questions appropriately - Respiratory Respiratory exam: Present: CTAB. Absent: accessory muscle use, rales, rhonchi, wheezes Additional comments: Normal WOB - Cardiovascular Cardiovascular exam: Present: RRR, +S1, +S2. Absent: diastolic murmur, gallop, rubs, systolic murmur Additional comments: No BLE edema - GI/Abdominal GI/Abdominal exam: Present: normal bowel sounds, soft. Absent: distended, hepatomegaly, mass, splenomegaly, tenderness - Psychiatric Psychiatric exam: Present: normal affect, normal mood. Absent: agitated, anxious, depressed - Skin Skin exam: Present: dry, intact, warm. Absent: cyanosis, rash - Patient Status Disposition: Home, Self-Care Condition: Good Overall status at discharge: patient is progressing back to baseline - Discharge Instructions Follow Up With: [facility] [Provider Group] Bradley Lu MD [Primary Care Provider] - 08/14/17 10:30 am Additional Instructions: Follow up with PCP in 2-3 days after discharge. Recheck BMP and CBC at that time. Follow up with cardiology as directed. - Diet and Activity Activity: resume usual activities as tolerated Diet: diabetic diet, low fat, low cholesterol, low salt diet, other (Cardiac Diet) - VTE Documentation of Mechanical Device: Intermittent pneumatic compression device Contraindication No Overlap Therapy: Admin of oral Factor Xa Inhibitor
[2017-08-10] MEDS ORDERED: Furosemide 40 MG TABLET PO SCH (09:00)
== END 2017-08-09 15:58 | disposition home or self-care (01) ==
LOC: 3BNU 05:17 → EMEROO 05:17 → 3BNU 09:44
PROVIDERS: ADMIT Internal Medicine; ATTEND Internal Medicine

== ENCOUNTER 2018-01-09 09:26 | Inpatient (IN) ==
--- NOTE | 2018-01-09 10:22 | Emergency Department Note ---
Disposition Clinical Impression: Dyspnea on exertion CVA (cerebral vascular accident) Qualifiers: CVA mechanism: unspecified Qualified Code(s): I63.9 - Cerebral infarction, unspecified Congestive heart failure Qualifiers: Heart failure type: unspecified Heart failure chronicity: unspecified Qualified Code(s): I50.9 - Heart failure, unspecified Disposition: Admitted As Inpatient Condition: Good Time of Disposition: 11:40 General Adult HPI - General Chief complaint: ED Arrhythmia/Palpitations Stated complaint: Gen weakness, increasing sob, nausea Time Seen by Provider: 01/09/18 09:45 Source: patient, family () Mode of arrival: ambulatory Limitations: no limitations Nursing Notes Reviewed: Yes Vital Signs Reviewed: Yes - History of Present Illness HPI Narrative: 67-year-old male history of proximal atrial fibrillation on Xarelto, congestive heart failure, COPD, and CAD with multiple stents presents emergency department for generalized weakness. States for the past week he is been feeling more sure breath, with associated palpitations with a cough and congestion. Denies any productive cough or changes sputum. He states it feels similar to his COPD but thinks it could be has heart failure as he has been more short of breath with exertion as well as laying flat. He typically can feel when he goes into atrial fibrillation and when he comes out of it he believes he is in atrial fibrill ation. He denies any recent fevers. He is denying any chest pain. He has noticed some increase swelling in his legs. He has not been sleeping well. He takes Xarelto for his atrial fibrillation, denies any G.I. bleed symptoms. He is also complaining of feeling unsteady on his feet more so over the past week. He states his had a headache to the posterior aspect of his head over the past 6 months thinking it would get better. He does not have a history of migraines are headaches. No visual changes. He denies any recent falls Pain Scale: 0 - Related Data Home Medications Medication Instructions Recorded Confirmed Metoprolol Succinate [Toprol Xl] 75 mg PO BID 08/06/17 08/06/17 RX: Albuterol Sulfate [Proair Hfa] 1 - 2 puff IH BID PRN 08/06/17 08/06/17 RX: Aspirin Enteric Coated 325 mg PO DAILY 08/06/17 08/06/17 [Aspirin EC] RX: Atorvastatin Calcium 80 mg PO QPM 08/06/17 08/06/17 RX: Budesonide/Formoterol 80/4.5 2 puff IH BID 08/06/17 08/06/17 [Symbicort 80/4.5] RX: Clopidogrel Bisulfate [Plavix] 75 mg PO DAILY 08/06/17 08/06/17 RX: Diltiazem CD (24hr) [Cardizem 120 mg PO DAILY 08/06/17 08/06/17 CD] RX: Diphenhydramine HCl [Nighttime 100 mg PO HS 08/06/17 08/06/17 Sleep Aid] RX: Hydralazine HCl 100 mg PO TID 08/06/17 08/06/17 RX: Insulin Glargine [Lantus] 25 unit SQ QAM 08/06/17 08/06/17 RX: Insulin Glargine [Lantus] 25 unit SQ QPM 08/06/17 08/06/17 RX: Insulin LISPRO [HumaLOG] 6 units SQ TID 08/06/17 08/06/17 RX: Losartan Potassium [Cozaar] 50 mg PO DAILY 08/06/17 08/06/17 RX: Multivitamin-Min/Iron/FA/Vit K 1 tab PO DAILY 08/06/17 08/06/17 [Multi-Day Plus Minerals Tablet] RX: Nitroglycerin [Nitrostat] 0.4 mg SL Q5M PRN 08/06/17 08/06/17 RX: Rivaroxaban [Xarelto] 20 mg PO QPM 08/06/17 08/06/17 RX: Tamsulosin [Flomax] 0.4 mg PO DAILY 08/06/17 08/06/17 Previous Rx's Medication Instructions Recorded RX: Furosemide [Lasix] 40 mg PO DAILY 7 Days #7 tablet 08/09/17 RX: Metoprolol XL (24 HR) Succ 100 mg PO BID 7 Days #14 tab.er.24h 08/09/17 [Toprol Xl] Allergies Allergy/AdvReac Type Severity Reaction Status Date / Time No Known Allergies Allergy Verified 01/09/18 09:33 All systems ED: reviewed and negative except as stated. Review of Systems: As Per HPI Constitutional: Reports: weakness. Denies: fever, chills, weight change ENT ED: Reports: congestion Cardiovascular: Reports: palpitations. Denies: chest pain, syncope Respiratory: Reports: cough, dyspnea Gastrointestinal: Denies: abdominal pain, nausea, vomiting, diarrhea, hematemesis, melena, hematochezia Genitourinary: Denies: dysuria, hematuria Musculoskeletal: Denies: back pain, neck pain Integumentary: Reports: rash. Denies: abrasion Neurological: Reports: headache, weakness. Denies: numbness, paresthesias, vertigo Endocrine: Reports: fatigue Past Medical History - Past Medical History Attestation: Yes The following information was validated with the patient. Source: patient Medical history: Reports: atrial fibrillation, coronary artery disease, diabetes, hyperlipidemia, hypertension, myocardial infarction Psychiatric history: Reports: no psych history - Social History Smoking Status: Former smoker Smokeless Tobacco Status: No Alcohol use: Reports: none Drug use: Reports: none Physical Exam - General Limitations: no limitations General appearance: alert, in no apparent distress, obese - Head Head exam: atraumatic, normocephalic, normal inspection - Eye Eye exam: Present: normal appearance, PERRL, EOMI. Absent: nystagmus - ENT ENT exam: normal exam, normal oropharynx, mucous membranes moist - Neck Neck exam: Present: normal inspection, full ROM, trachea midline - Chest Chest inspection: Present: normal inspection, symmetric chest wall rise - Respiratory Respiratory exam: Present: normal lung sounds bilaterally. Absent: respiratory distress, wheezes - Cardiovascular Cardiovascular exam: Present: irregular rhythm, normal heart sounds - Expanded Cardiovascular Exam Peripheral pulses: 2+: radial (R), radial (L) - Abdominal Exam Abdominal exam: Present: soft, Non-Tender, normal bowel sounds, other (erythematous rash to abdomen with ecchyomsis to left lower quadrant from insulin). Absent: tenderness, distention, guarding, rebound, rigidity - Extremities Exam Extremities exam: Present: normal inspection, full ROM, normal capillary refill, pedal edema (bilateral). Absent: tenderness - Back Exam Back exam: Present: normal inspection, full ROM. Absent: tenderness - Neurological Exam Neurological exam: Present: alert, oriented X3, CN II-XII intact - Expanded Neurological Exam Patient oriented to: Present: person, place, time Speech: Present: fluid speech Cranial nerves: EOM function (II, III, IV, ): Normal, facial sensation (V): Normal, facial palsy (VII): Normal, gag reflex (IX): Normal, spinal accessory function (XI): Normal, tongue deviation (XII): Normal Cerebellar function: finger to nose: Abnormal Left (dysmetria), heel to brown: Normal Cerebellar function: wide-based gait, ataxic gait Motor strength - LUE: 5/5 Motor strength - RUE: 5/5 Motor strength - LLE: 5/5 Motor strength - RLE: 5/5 Upper motor neuron exam: ann marie neglect: Absent bilaterally, pronator drift: Absent bilaterally Sensory exam upper extremity: light touch: Normal Sensory exam lower extremity: light touch: Normal Coma Scale Eye Opening: Spontaneous Coma Scale Motor Response: Obeys Commands Coma Scale Verbal Response: Oriented Coma Scale Total: 15 - Psychiatric Psychiatric exam: Present: normal affect, normal mood - Skin Skin exam: Present: warm, dry, intact, normal color. Absent: rash, cyanosis, diaphoresis Course Course Narrative: Patient presents with generalized malaise for the past week with some associated shortness of breath. History of atrial fibrillation and his pulse is irregularly irregular. He appears in no pain. Vital signs are stable, HR is 90s. He does have some pedal edema and states some increase swelling of his legs. He denies any chest pain. Given his history will check basic labs including a troponin and BNP as well as a chest x-ray. Suspect this could be likely acute on chronic heart failure, possible ACS. His neurologic exam is normal however given the courtesy of this headache and feeling unsteady on his feet concern for possible TIA. There is no nystagmus on examination. He has some dysmetria with finger to nose more on the left than right. He does not appear in any acute distress. CT of the head ordered as well. - Reevaluation(s) Reevaluation #1: BNP is 2400 this is significantly greater than his baseline. His chest x-ray showed vascular congestion. Suspect this is likely worsening heart failure. A report from cardiology reports a subacute to acute left occipital infarct. Patient has already taken his aspirin today and is currently anticoagulated for his atrial fibrillation. Time: 11:57 - Consultations Consultation #1: Spoke with on-call hospitalist nik De Santiago to admit for dyspnea on exertion, heart failure, CVA. No further orders at this time. Patient has taken his 324 aspirant today. He will be administered Lasix 40 mg here IV. Recommended MRI of the brain Time: 11:54 Vital Signs Temperature 97.4 F L 01/09/18 09:34 Pulse Rate 93 01/09/18 09:34 Respiratory Rate 24 01/09/18 09:34 Blood Pressure 125/84 01/09/18 09:34 O2 Sat by Pulse Oximetry 98 01/09/18 09:34 Temperature 97.5 F L 01/09/18 15:44 Pulse Rate 77 01/09/18 15:44 Respiratory Rate 18 01/09/18 15:44 Blood Pressure 132/84 01/09/18 15:44 O2 Sat by Pulse Oximetry 90 01/09/18 15:44 Oxygen Delivery Oxygen Delivery Room Air Medical Decision Making - MDM Narrative Medical decision making narrative: Patient was discussed with my attending physician who agrees with ED management and final disposition. They independently evaluated the patient. Please refer to their attestation to this encounter for additional information. This note was generated by [employer] voice recognition software and as a result grammatical or spelling errors may occur using this program. - Medical Records Medical records reviewed: Yes I reviewed the patient's medical records. - Lab Data Lab results reviewed: Yes I reviewed the patient's lab results. Result diagrams: 01/09/18 10:23 01/09/18 10:23 Lab Results 01/09/18 01/09/18 01/09/18 Range/Units 10:23 10:23 10:23 WBC 12.3 H (4.3-11.1) K/mcL RBC 4.42 (4.19-5.50) M/mcL Hgb 14.4 (12.9-16.9) g/dL Hct 43.1 (37.5-50.1) % MCV 97.5 (83.0-100.0) fL MCH 32.6 (28.0-33.3) pg MCHC 33.4 (31.6-35.5) g/dL RDW 14.7 H (11.5-14.5) % Plt Count 175 (140-400) K/mcL MPV 11.8 (9.4-12.4) fL Immature Gran % 0.3 (0-4) % Seg Neutrophils % 73.0 % Lymphocytes % 19.4 % Monocytes % 5.7 % Eosinophils % 0.7 % Basophils % 0.9 % Neutrophils # 9.0 H (1.6-8.9) K/mcL Lymphocytes # 2.4 (0.6-4.6) K/mcL Monocytes # 0.7 (0.0-1.3) K/mcL Eosinophils # 0.1 (0.0-0.6) K/mcL Basophils # 0.1 (0.0-0.2) K/mcL Sodium 142 (136-145) mEq/L Potassium 3.8 (3.5-5.1) mEq/L Chloride 107 (98-107) mEq/L Carbon Dioxide 26 (23-29) mEq/L BUN 24 H (8-23) mg/dL Creatinine 1.28 (0.70-1.30) mg/dL Est GFR ( Amer) > 60 (> 60) Est GFR (Non-Af Amer) 56 L (> 60) BUN/Creatinine Ratio 19 (6-26) Glucose 165 H (70-105) mg/dL Calculated Osmolality 302 H (280-300) Calcium 9.0 (8.6-10.3) mg/dL Total Bilirubin 0.6 (0.3-1.0) mg/dL AST 30 (13-39) Units/L ALT 38 (7-52) Units/L Alkaline Phosphatase 89 (34-104) Units/L Troponin I < 0.03 (< 0.04) ng/mL B-Natriuretic Peptide 2447 H (Less than 100) pg/mL Serum Total Protein 6.8 (6.4-8.9) g/dL Albumin 4.0 (3.5-5.7) g/dL Globulin 2.8 (2.4-3.5) g/dL Albumin/Globulin Ratio 1.4 (1.1-2.2) Urine Color (Yellow) Urine Clarity (Clear) Urine pH (5.0-8.0) pH Units Ur Specific [place] (1.010-1.025) Urine Protein (Neg-Trace) mg/dL Urine Glucose (UA) (Normal) mg/dL Urine Ketones (Negative) mg/dL Urine Blood (Negative) Urine Nitrite (Negative) Urine Bilirubin (Negative) Urine Urobilinogen (Normal) mg/dL Ur Leukocyte Esterase (Negative) Urine Microscopic RBC (0-3) per hpf Urine Microscopic WBC (0-3) per hpf Urine Bacteria (None-Few) per hpf Ur Culture Indicated? (NO) 01/09/18 Range/Units 10:43 WBC (4.3-11.1) K/mcL RBC (4.19-5.50) M/mcL Hgb (12.9-16.9) g/dL Hct (37.5-50.1) % MCV (83.0-100.0) fL MCH (28.0-33.3) pg MCHC (31.6-35.5) g/dL RDW (11.5-14.5) % Plt Count (140-400) K/mcL MPV (9.4-12.4) fL Immature Gran % (0-4) % Seg Neutrophils % % Lymphocytes % % Monocytes % % Eosinophils % % Basophils % % Neutrophils # (1.6-8.9) K/mcL Lymphocytes # (0.6-4.6) K/mcL Monocytes # (0.0-1.3) K/mcL Eosinophils # (0.0-0.6) K/mcL Basophils # (0.0-0.2) K/mcL Sodium (136-145) mEq/L Potassium (3.5-5.1) mEq/L Chloride (98-107) mEq/L Carbon Dioxide (23-29) mEq/L BUN (8-23) mg/dL Creatinine (0.70-1.30) mg/dL Est GFR ( Amer) (> 60) Est GFR (Non-Af Amer) (> 60) BUN/Creatinine Ratio (6-26) Glucose (70-105) mg/dL Calculated Osmolality (280-300) Calcium (8.6-10.3) mg/dL Total Bilirubin (0.3-1.0) mg/dL AST (13-39) Units/L ALT (7-52) Units/L Alkaline Phosphatase (34-104) Units/L Troponin I (< 0.04) ng/mL B-Natriuretic Peptide (Less than 100) pg/mL Serum Total Protein (6.4-8.9) g/dL Albumin (3.5-5.7) g/dL Globulin (2.4-3.5) g/dL Albumin/Globulin Ratio (1.1-2.2) Urine Color Yellow (Yellow) Urine Clarity Clear (Clear) Urine pH 6.0 (5.0-8.0) pH Units Ur Specific [place] 1.019 (1.010-1.025) Urine Protein 30 H (Neg-Trace) mg/dL Urine Glucose (UA) Normal (Normal) mg/dL Urine Ketones Negative (Negative) mg/dL Urine Blood Negative (Negative) Urine Nitrite Negative (Negative) Urine Bilirubin Negative (Negative) Urine Urobilinogen Normal (Normal) mg/dL Ur Leukocyte Esterase Negative (Negative) Urine Microscopic RBC 0-3 (0-3) per hpf Urine Microscopic WBC 0-3 (0-3) per hpf Urine Bacteria Moderate H (None-Few) per hpf Ur Culture Indicated? NO (NO) - Radiology Data Radiology results reviewed: Yes I reviewed the patient's radiology results. Chest X-Ray 01/09/18 09:54 IMPRESSION: 1. Cardiomegaly with mild vascular congestion. D/ / Scott Cade MD / Scott Cade MD Interpreting Provider: Scott Cade MD Head CT 01/09/18 10:25 IMPRESSION: 1. Poor grimm-white differentiation in the left occipital lobe which could represent an acute/early subacute infarct. MRI is recommended for further evaluation. 2. Cerebral and cerebellar parenchymal volume loss, asymmetric in the cerebellum which could be related to chronic alcohol use, long-term seizure medication, or neurodegenerative disorder. 3. Chronic microvascular white matter ischemic disease. Results were discussed with Dr. Beauchamp at 11:35 a.m. on 01/09/2018. That is spelled [place] D/ / Robin Gudino MD / Robin Gudino MD Interpreting Provider: Robin Gudino MD - EKG Data EKG #1 EKG attestation: Yes I reviewed and interpreted this EKG. EKG results narrative: EKG performed 1010 rhythm is irregularly irregular at a rate of 94 with a left bundle branch block that appears consistent with prior 08/03/2017, no Sgarbossa criteria, no ST elevation. No acute ischemic changes.
[2018-01-09 10:58] LABS: Basophils # 0.1 K/mcL (0.0-0.2); Basophils % 0.9 %; Eosinophils # 0.1 K/mcL (0.0-0.6); Eosinophils % 0.7 %; Hematocrit 43.1 % (37.5-50.1); Hemoglobin 14.4 g/dL (12.9-16.9); Immature Granulocytes % 0.3 % (0-4); Lymphocytes # 2.4 K/mcL (0.6-4.6); Lymphocytes % 19.4 %; Mean Corpuscular HGB Conc 33.4 g/dL (31.6-35.5); Mean Corpuscular Hemoglobin 32.6 pg (28.0-33.3); Mean Corpuscular Volume 97.5 fL (83.0-100.0); Mean Platelet Volume 11.8 fL (9.4-12.4); Monocytes # 0.7 K/mcL (0.0-1.3); Monocytes % 5.7 %; Platelet Count 175 K/mcL (140-400); Red Blood Count 4.42 M/mcL (4.19-5.50); Red Cell Distribution Width 14.7 % (11.5-14.5)
[2018-01-09 11:01] LABS: Bilirubin,Urine Negative (Negative); Blood,Urine Negative (Negative); Clarity,Urine Clear (Clear); Color,Urine Yellow (Yellow); Glucose,Urine (UA) Normal (Normal); Ketones,Urine Negative (Negative); Leukocyte Esterase,Urine Negative (Negative); Nitrite,Urine Negative (Negative); Protein,Urine 30 mg/dL (Neg-Trace); Specific Gravity,Urine 1.019 (1.010-1.025); Urobilinogen,Urine Normal (Normal)
[2018-01-09 11:16] LABS: Alanine Aminotransferase 38 Units/L (7-52); Albumin/Globulin Ratio 1.4 (1.1-2.2); Alkaline Phosphatase 89 Units/L (34-104); Aspartate Amino Transferase 30 Units/L (13-39); BUN/Creatinine Ratio 19 (6-26); Bilirubin,Total 0.6 mg/dL (0.3-1.0); Blood Urea Nitrogen 24 mg/dL (8-23); Carbon Dioxide 26 mEq/L (23-29); Chloride 107 mEq/L (98-107); Globulin 2.8 g/dL (2.4-3.5); Glucose 165 mg/dL (70-105); Osmolality,Calculated 302 (280-300); Potassium 3.8 mEq/L (3.5-5.1); Sodium 142 mEq/L (136-145); Total Protein 6.8 g/dL (6.4-8.9); Troponin I < 0.03 ng/mL (< 0.04); eGFR For Non-African Americans 56 (> 60)
--- NOTE | 2018-01-09 11:17 | Emergency Department Note ---
Disposition Clinical Impression: Dyspnea on exertion CVA (cerebral vascular accident) Qualifiers: CVA mechanism: unspecified Qualified Code(s): I63.9 - Cerebral infarction, unspecified Congestive heart failure Qualifiers: Heart failure type: unspecified Heart failure chronicity: unspecified Qualified Code(s): I50.9 - Heart failure, unspecified Disposition: Admitted As Inpatient Condition: Good General Adult HPI - General Chief complaint: ED Arrhythmia/Palpitations Stated complaint: Gen weakness, increasing sob, nausea Time Seen by Provider: 01/09/18 09:45 Source: patient, family () Mode of arrival: ambulatory Limitations: no limitations - History of Present Illness Pain Scale: 0 - Related Data Home Medications Medication Instructions Recorded Confirmed Metoprolol Succinate [Toprol Xl] 75 mg PO BID 08/06/17 08/06/17 RX: Albuterol Sulfate [Proair Hfa] 1 - 2 puff IH BID PRN 08/06/17 08/06/17 RX: Aspirin Enteric Coated 325 mg PO DAILY 08/06/17 08/06/17 [Aspirin EC] RX: Atorvastatin Calcium 80 mg PO QPM 08/06/17 08/06/17 RX: Budesonide/Formoterol 80/4.5 2 puff IH BID 08/06/17 08/06/17 [Symbicort 80/4.5] RX: Clopidogrel Bisulfate [Plavix] 75 mg PO DAILY 08/06/17 08/06/17 RX: Diltiazem CD (24hr) [Cardizem 120 mg PO DAILY 08/06/17 08/06/17 CD] RX: Diphenhydramine HCl [Nighttime 100 mg PO HS 08/06/17 08/06/17 Sleep Aid] RX: Hydralazine HCl 100 mg PO TID 08/06/17 08/06/17 RX: Insulin Glargine [Lantus] 25 unit SQ QAM 08/06/17 08/06/17 RX: Insulin Glargine [Lantus] 25 unit SQ QPM 08/06/17 08/06/17 RX: Insulin LISPRO [HumaLOG] 6 units SQ TID 08/06/17 08/06/17 RX: Losartan Potassium [Cozaar] 50 mg PO DAILY 08/06/17 08/06/17 RX: Multivitamin-Min/Iron/FA/Vit K 1 tab PO DAILY 08/06/17 08/06/17 [Multi-Day Plus Minerals Tablet] RX: Nitroglycerin [Nitrostat] 0.4 mg SL Q5M PRN 08/06/17 08/06/17 RX: Rivaroxaban [Xarelto] 20 mg PO QPM 08/06/17 08/06/17 RX: Tamsulosin [Flomax] 0.4 mg PO DAILY 08/06/17 08/06/17 Previous Rx's Medication Instructions Recorded RX: Furosemide [Lasix] 40 mg PO DAILY 7 Days #7 tablet 08/09/17 RX: Metoprolol XL (24 HR) Succ 100 mg PO BID 7 Days #14 tab.er.24h 08/09/17 [Toprol Xl] Allergies Allergy/AdvReac Type Severity Reaction Status Date / Time No Known Allergies Allergy Verified 01/09/18 09:33 Constitutional: Reports: weakness. Denies: fever, chills, weight change ENT ED: Reports: congestion Cardiovascular: Reports: palpitations. Denies: chest pain, syncope Respiratory: Reports: cough, dyspnea Gastrointestinal: Denies: abdominal pain, nausea, vomiting, diarrhea, hematemesis, melena, hematochezia Genitourinary: Denies: dysuria, hematuria Musculoskeletal: Denies: back pain, neck pain Integumentary: Reports: rash. Denies: abrasion Neurological: Reports: headache, weakness. Denies: numbness, paresthesias, vertigo Endocrine: Reports: fatigue Past Medical History - Past Medical History Medical history: Reports: atrial fibrillation, coronary artery disease, diabetes, hyperlipidemia, hypertension, myocardial infarction Psychiatric history: Reports: no psych history - Social History Smoking Status: Former smoker Smokeless Tobacco Status: No Alcohol use: Reports: none Drug use: Reports: none Physical Exam - General Limitations: no limitations General appearance: alert, in no apparent distress, obese Course Vital Signs Temperature 97.4 F L 01/09/18 09:34 Pulse Rate 93 01/09/18 09:34 Respiratory Rate 24 01/09/18 09:34 Blood Pressure 125/84 01/09/18 09:34 O2 Sat by Pulse Oximetry 98 01/09/18 09:34 Temperature 97.6 F 01/09/18 18:41 Pulse Rate 64 01/09/18 18:41 Respiratory Rate 16 01/09/18 18:41 Blood Pressure 125/89 01/09/18 18:41 O2 Sat by Pulse Oximetry 97 01/09/18 18:41 Oxygen Delivery Oxygen Delivery Room Air Medical Decision Making - Lab Data Result diagrams: 01/09/18 10:23 01/09/18 10:23 Lab Results 01/09/18 01/09/18 01/09/18 Range/Units 10:23 10:23 10:23 WBC 12.3 H (4.3-11.1) K/mcL RBC 4.42 (4.19-5.50) M/mcL Hgb 14.4 (12.9-16.9) g/dL Hct 43.1 (37.5-50.1) % MCV 97.5 (83.0-100.0) fL MCH 32.6 (28.0-33.3) pg MCHC 33.4 (31.6-35.5) g/dL RDW 14.7 H (11.5-14.5) % Plt Count 175 (140-400) K/mcL MPV 11.8 (9.4-12.4) fL Immature Gran % 0.3 (0-4) % Seg Neutrophils % 73.0 % Lymphocytes % 19.4 % Monocytes % 5.7 % Eosinophils % 0.7 % Basophils % 0.9 % Neutrophils # 9.0 H (1.6-8.9) K/mcL Lymphocytes # 2.4 (0.6-4.6) K/mcL Monocytes # 0.7 (0.0-1.3) K/mcL Eosinophils # 0.1 (0.0-0.6) K/mcL Basophils # 0.1 (0.0-0.2) K/mcL Sodium 142 (136-145) mEq/L Potassium 3.8 (3.5-5.1) mEq/L Chloride 107 (98-107) mEq/L Carbon Dioxide 26 (23-29) mEq/L BUN 24 H (8-23) mg/dL Creatinine 1.28 (0.70-1.30) mg/dL Est GFR ( Amer) > 60 (> 60) Est GFR (Non-Af Amer) 56 L (> 60) BUN/Creatinine Ratio 19 (6-26) Glucose 165 H (70-105) mg/dL Calculated Osmolality 302 H (280-300) Calcium 9.0 (8.6-10.3) mg/dL Total Bilirubin 0.6 (0.3-1.0) mg/dL AST 30 (13-39) Units/L ALT 38 (7-52) Units/L Alkaline Phosphatase 89 (34-104) Units/L Troponin I < 0.03 (< 0.04) ng/mL B-Natriuretic Peptide 2447 H (Less than 100) pg/mL Serum Total Protein 6.8 (6.4-8.9) g/dL Albumin 4.0 (3.5-5.7) g/dL Globulin 2.8 (2.4-3.5) g/dL Albumin/Globulin Ratio 1.4 (1.1-2.2) Urine Color (Yellow) Urine Clarity (Clear) Urine pH (5.0-8.0) pH Units Ur Specific [place] (1.010-1.025) Urine Protein (Neg-Trace) mg/dL Urine Glucose (UA) (Normal) mg/dL Urine Ketones (Negative) mg/dL Urine Blood (Negative) Urine Nitrite (Negative) Urine Bilirubin (Negative) Urine Urobilinogen (Normal) mg/dL Ur Leukocyte Esterase (Negative) Urine Microscopic RBC (0-3) per hpf Urine Microscopic WBC (0-3) per hpf Urine Bacteria (None-Few) per hpf Ur Culture Indicated? (NO) 01/09/18 Range/Units 10:43 WBC (4.3-11.1) K/mcL RBC (4.19-5.50) M/mcL Hgb (12.9-16.9) g/dL Hct (37.5-50.1) % MCV (83.0-100.0) fL MCH (28.0-33.3) pg MCHC (31.6-35.5) g/dL RDW (11.5-14.5) % Plt Count (140-400) K/mcL MPV (9.4-12.4) fL Immature Gran % (0-4) % Seg Neutrophils % % Lymphocytes % % Monocytes % % Eosinophils % % Basophils % % Neutrophils # (1.6-8.9) K/mcL Lymphocytes # (0.6-4.6) K/mcL Monocytes # (0.0-1.3) K/mcL Eosinophils # (0.0-0.6) K/mcL Basophils # (0.0-0.2) K/mcL Sodium (136-145) mEq/L Potassium (3.5-5.1) mEq/L Chloride (98-107) mEq/L Carbon Dioxide (23-29) mEq/L BUN (8-23) mg/dL Creatinine (0.70-1.30) mg/dL Est GFR ( Amer) (> 60) Est GFR (Non-Af Amer) (> 60) BUN/Creatinine Ratio (6-26) Glucose (70-105) mg/dL Calculated Osmolality (280-300) Calcium (8.6-10.3) mg/dL Total Bilirubin (0.3-1.0) mg/dL AST (13-39) Units/L ALT (7-52) Units/L Alkaline Phosphatase (34-104) Units/L Troponin I (< 0.04) ng/mL B-Natriuretic Peptide (Less than 100) pg/mL Serum Total Protein (6.4-8.9) g/dL Albumin (3.5-5.7) g/dL Globulin (2.4-3.5) g/dL Albumin/Globulin Ratio (1.1-2.2) Urine Color Yellow (Yellow) Urine Clarity Clear (Clear) Urine pH 6.0 (5.0-8.0) pH Units Ur Specific [place] 1.019 (1.010-1.025) Urine Protein 30 H (Neg-Trace) mg/dL Urine Glucose (UA) Normal (Normal) mg/dL Urine Ketones Negative (Negative) mg/dL Urine Blood Negative (Negative) Urine Nitrite Negative (Negative) Urine Bilirubin Negative (Negative) Urine Urobilinogen Normal (Normal) mg/dL Ur Leukocyte Esterase Negative (Negative) Urine Microscopic RBC 0-3 (0-3) per hpf Urine Microscopic WBC 0-3 (0-3) per hpf Urine Bacteria Moderate H (None-Few) per hpf Ur Culture Indicated? NO (NO) Attestation Statement - Attestation Attestation: Resident Attestation: I examined this patient and my medical decision making was reviewed with the Resident Physician. I agree with the documented findings, disposition and treatment plan as described except to the extent set forth below. We independently had [id number] contact with the patient. Patient seen with resident physician Dr. Adames (Senior Resident) and Dr. Villasenor ([place] Resident). Please see resident note for further details and disposition. Past history of congestive heart failure, hypertension, type 2 diabetes, coronary artery disease, atrial fibrillation on Xarelto, biventricular heart failure with reduced EF, hypokalemia present in today to the emergency department for nausea and shortness of breath. Symptoms been going on for the past several days. Shortness of breath is worse with lying down. Better with sitting up. Patient unable to get any sleep last night due to inability to lie down to get rest. Patient has had no fever, cough, sputum production. Patient does have some associated swelling to the lower legs +1 pitting edema to the calf area. Regular rhythm, clear to auscultation bilaterally. Patient will undergo further investigation for dyspnea and nausea. Likely CHF. Will likely require admission.
[2018-01-09 11:23] LABS: Bacteria,Urine Moderate per hpf (None-Few); RBC,Urine 0-3 per hpf (0-3); WBC,Urine 0-3 per hpf (0-3)
[2018-01-09] MEDS ORDERED: Furosemide 40 MG/4 ML VIAL IVP ONE (11:29)
[2018-01-09] MEDS ORDERED: traMADol 50 MG TABLET PO PRN (13:33)
[2018-01-09] MEDS ORDERED: Naloxone 0.4 MG/ML INJ IVP PRN (13:33)
[2018-01-09] MEDS ORDERED: Albuterol 2.5 MG/3 ML NEBULIZER IH PRN (13:37)
[2018-01-09] MEDS ORDERED: D5% in Water 1,000 ML IVC PRN (13:41)
[2018-01-09] MEDS ORDERED: *HR* Dextrose 50 % in Water (Syg) 50 ML SYRINGE IVP PRN (13:41)
[2018-01-09] MEDS ORDERED: Dextrose Gel 15 GM/37.5 ML TUBE PO PRN ×2 (13:41)
--- NOTE | 2018-01-09 13:51 | Neurology - Consult Note ---
<Manan Ying - Last Filed: 01/09/18 15:04> Date of Encounter: 01/09/18 Time of Encounter: 13:50 Assessment and Plan (1) CVA (cerebral vascular accident) Current Visit: Yes Status: Acute Patietn with weakness, headache in the posterior aspect of his head and feeling unsteady with ambulation for the past 1 week. He had abnormal finger to nose dysmetria more on the left than right in the ED, which has now resolved, CT brain revealed poor grimm-white differentiation in the left occipital lobe which could represent an acute/early subacute infarct with chronic microvascular white matter ischemic disease and cerebral and cerebellar parenchymal volume loss, asymmetric in the cerebellum which could be related to chronic alcohol use, long-term seizure medication, or neurodegenerative disorder. Lipid panel 08/29/17 revealed cholesterol 107, LDL 53, HDL 29 Continue home Asprin 325 mg daily, Plavix 75mg daily, and Atorvastatin 80mg qHS. Repeat Echo pending to r/o embolic phenomenon in the setting of atrial fibrillation, patient is taking Xarelto MRI brain and MRA neck pending Qualifiers: CVA mechanism: unspecified Qualified Code(s): I63.9 - Cerebral infarction, unspecified (2) Acute on chronic HFrEF (heart failure with reduced ejection fraction) Current Visit: Yes Status: Acute Management per primary team (3) Hypertension Current Visit: No Status: Chronic Blood pressure controlled. Continue home meds Qualifiers: Hypertension type: essential hypertension Qualified Code(s): I10 - Essential (primary) hypertension (4) HLD (hyperlipidemia) Current Visit: Yes Status: Chronic Lipid panel 08/29/17 revealed cholesterol 107, LDL 53, HDL 29 Continue home Atorvastatin 80mg qHS. Qualifiers: Hyperlipidemia type: unspecified Qualified Code(s): E78.5 - Hyperlipidemia, unspecified (5) Atrial fibrillation Current Visit: No Status: Chronic Management per primary team. Qualifiers: Atrial fibrillation type: paroxysmal Qualified Code(s): I48.0 - Paroxysmal atrial fibrillation (6) Coronary artery disease Current Visit: No Status: Chronic Continue current therapy Qualifiers: Coronary Disease-Associated Artery/Lesion type: deering artery [place] vs. 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 Castano is a 67 year old male with a PMH of HTN, HLD, CAD with stents, DM, COPD, systolic CHF with EF 15-20%, and A-fib on Xarelto who presented to the ED complaining of weakness, palpitations, and SOB for several days. He reports a headache in the posterior aspect of his head and feeling lightheaded and unsteady with ambulation for the past 1 week. He also had abnormal finger to nose dysmetria more on the left than right in the ED. He denied any fever, chills, neck stiffness, extremity weakness, numbness, tingling, slurred speech, or vision changes. CT brain revealed poor grimm-white differentiation in the left occipital lobe w hich could represent an acute/early subacute infarct with chronic microvascular white matter ischemic disease and cerebral and cerebellar parenchymal volume loss, asymmetric in the cerebellum which could be related to chronic alcohol use, long-term seizure medication, or neurodegenerative disorder. Patient takes Asprin 325 mg daily, Plavix 75mg daily, and Atorvastatin 80mg qHS at home. MRI brain was ordered. Neurology was consulted for further recommendations. Past Med Surg Social Fam HX - Past Medical History Medical history: atrial fibrillation, coronary artery disease, diabetes, hyperlipidemia, hypertension, myocardial infarction Additional medical history: several stents, Psychiatric history: no psych history - Past Surgical History Additional surgical history: 8 stents - Social History Smoking Status: Former smoker Smokeless Tobacco Status: No Alcohol use: none Drug use: none - Family History Mother Living Status: Still Living Hx Family Cardiac Disorders: Yes (HTN) Father Living Status: Hx Family Cardiac Disorders: Yes ([place]) Medications and Allergies Albuterol Sulfate [Proair Hfa] 1 - 2 puff IH BID PRN 08/06/17 [History] Aspirin Enteric Coated [Aspirin EC] 325 mg PO DAILY 08/06/17 [History] Atorvastatin Calcium 80 mg PO QPM 08/06/17 [History] Budesonide/Formoterol 80/4.5 [Symbicort 80/4.5] 2 puff IH BID 08/06/17 [ History] Clopidogrel Bisulfate [Plavix] 75 mg PO DAILY 08/06/17 [History] Diltiazem CD (24hr) [Cardizem CD] 120 mg PO DAILY 08/06/17 [History] Diphenhydramine HCl [Nighttime Sleep Aid] 100 mg PO HS 08/06/17 [History] Hydralazine HCl 100 mg PO TID 08/06/17 [History] Insulin Glargine [Lantus] 25 unit SQ QAM 08/06/17 [History] Insulin Glargine [Lantus] 25 unit SQ QPM 08/06/17 [History] Insulin LISPRO [HumaLOG] 6 units SQ TID 08/06/17 [History] Losartan Potassium [Cozaar] 50 mg PO DAILY 08/06/17 [History] Metoprolol Succinate [Toprol Xl] 75 mg PO BID 08/06/17 [History] Multivitamin-Min/Iron/FA/Vit K [Multi-Day Plus Minerals Tablet] 1 tab PO DAILY 08/06/17 [History] Nitroglycerin [Nitrostat] 0.4 mg SL Q5M PRN 08/06/17 [History] Rivaroxaban [Xarelto] 20 mg PO QPM 08/06/17 [History] Tamsulosin [Flomax] 0.4 mg PO DAILY 08/06/17 [History] Furosemide [Lasix] 40 mg PO DAILY 7 Days #7 tablet 08/09/17 [Rx] Metoprolol XL (24 HR) Succ [Toprol Xl] 100 mg PO BID 7 Days #14 tab.er.24h 08/09/17 [Rx] Allergy/AdvReac Type Severity Reaction Status Date / Time No Known Allergies Allergy Verified 01/09/18 09:33 All Systems: The remainder of the systems were reviewed and are negative - Constitutional Constitutional ROS IM: headache(s), weakness, no chills, no fatigue, no fever(s), no frequent falls - Nose, Mouth, Throat Nose, mouth and throat: disequilibrium, dizziness (lightheadedness) - Cardiovascular Cardiovascular ROS IM: dyspnea, edema, no chest pain - Respiratory Respiratory IM: dyspnea, no cough - Gastrointestinal Gastrointestinal: no abdominal pain, no dysphagia, no nausea, no vomiting - Genitourinary Genitourinary ROS: no urinary frequency, no urinary urgency - Musculoskeletal Musculoskeletal ROS IM: no abnormal gait, no back pain, no deformity, no muscle weakness, no myalgias, no neck pain, no numbness, no tingling - Integumentary Integumentary IM: no new lesions, no rash - Neurological Neurological ROS: disequilibrium, dizziness (lightheadedness), paresthesias (peripheral neuropathy both feet, chronic), weakness, no syncope, no tingling - Psychiatric Psychiatric general PM: no anxiety, no depression - Endocrine Endocrine IM: palpitations, no fatigue Physical Examination - Vital Signs Vital Signs: Initial Vital Signs Temp Pulse Resp BP Pulse Ox 97.4 F L 93 24 125/84 98 01/09/18 09:34 01/09/18 09:34 01/09/18 09:34 01/09/18 09:34 01/09/18 09:34 - Constitutional General appearance: comfortable - Neurologic Sensorimotor examination: intact Detailed motor examination: grossly full strength in all extremities, full strength in all major muscle groups Motor examination - right side: 5/5: deltoids, biceps, triceps, wrist flexion, wrist extension, knitting inspector, hip flexors, tibialis Anterior, quadriceps, toe extension (EHL), plantarflexion Motor examination - left side: 5/5: deltoids, biceps, triceps, wrist flexion, wrist extension, hip flexors, knitting inspector, quadriceps, tibialis Anterior, toe extension (EHL), plantarflexion Detailed sensory examination: intact (chronic peripheral neuropathy bilateral feet associated with DM), light touch Reflex and gait examination: normal gait Reflexes: Biceps: 2+, Triceps: 2+, Brachioradialis: 2+, Patella: 2+, Achilles: 2+ Mental Status Examination: awake, alert, oriented to person, oriented to place, oriented to time, follows commands appropriately, answers questions appropriately, no agnosia, no aphasia, no aproxia Cranial nerve examination: PERRL, EOMI, visual bryant intact, sensory to face intact, mastication intact, no facial asymmetry is present, no dysarthria, flexes SCM and trapezius muscles symmetrically with full power, tongue protrudes midline, no atrophy or facial fasiculations present Cerebellar examination: no dysmetria, performs finger to nose and heel to brown symmetrically without ataxia, no gait ataxia, no truncal ataxia, no difficulty with rapid alternating movements Results - Laboratory Findings CBC and BMP: 01/09/18 10:23 01/09/18 10:23 Abnormal lab findings: Abnormal lab results WBC 12.3 K/mcL (4.3-11.1) H 01/09/18 10:23 RDW 14.7 % (11.5-14.5) H 01/09/18 10:23 Neutrophils # 9.0 K/mcL (1.6-8.9) H 01/09/18 10:23 BUN 24 mg/dL (8-23) H 01/09/18 10:23 Est GFR (Non-Af Amer) 56 (> 60) L 01/09/18 10:23 Glucose 165 mg/dL (70-105) H 01/09/18 10:23 Calculated Osmolality 302 (280-300) H 01/09/18 10:23 B-Natriuretic Peptide 2447 pg/mL (Less than 100) H 01/09/18 10:23 Urine Protein 30 mg/dL (Neg-Trace) H 01/09/18 10:43 Urine Bacteria Moderate per hpf (None-Few) H 01/09/18 10:43 - Diagnostic Findings Additional findings: ITS Impressions Chest X-Ray 01/09/18 09:54 IMPRESSION: 1. Cardiomegaly with mild vascular congestion. D/ / Scott Cade MD / Scott Cade MD Interpreting Provider: Scott Cade MD Head CT 01/09/18 10:25 IMPRESSION: 1. Poor grimm-white differentiation in the left occipital lobe which could represent an acute/early subacute infarct. MRI is recommended for further evaluation. 2. Cerebral and cerebellar parenchymal volume loss, asymmetric in the cerebellum which could be related to chronic alcohol use, long-term seizure medication, or neurodegenerative disorder. 3. Chronic microvascular white matter ischemic disease. Results were discussed with Dr. Adames at 11:35 a.m. on 01/09/2018. D/ / 01/09/2018 11:40:14 Robin Gudino MD / [email or web address] Interpreting Provider: Robin Gudino MD Consult Discharge Plan - Plan Referrals: Kenneth Cabral MD [Primary Care Provider] - <Sonja Krishna I - Last Filed: 01/10/18 11:03> Date of Encounter: 01/09/18 Assessment and Plan (1) CVA (cerebral vascular accident) Current Visit: Yes Status: Acute Agree with Dr Ying,documentation, NO Neuro defecit on Exam, CT findings likely Old ? recommend MRi to confirm indeed its new or not Already on ASA , Plavix and Statin, and Xarelto, dont think is there any other options even if its a new infarct. may repeat Echo to make sure no new thrombus, NO need for carotid as doing MRA other treatment as per primary team and cardiology Sonja Krishna MD Qualifiers: CVA mechanism: unspecified Qualified Code(s): I63.9 - Cerebral infarction, unspecified History of Present Illness HPI: Mr. Castano is a 67 year old male All Systems: The remainder of the systems were reviewed and are negative Physical Examination - Vital Signs Vital Signs: Initial Vital Signs Temp Pulse Resp BP Pulse Ox 97.4 F L 93 24 125/84 98 01/09/18 09:34 01/09/18 09:34 01/09/18 09:34 01/09/18 09:34 01/09/18 09:34 Results - Laboratory Findings CBC and BMP: 01/09/18 10:23 01/10/18 03:56 Abnormal lab findings: Abnormal lab results WBC 12.3 K/mcL (4.3-11.1) H 01/09/18 10:23 RDW 14.7 % (11.5-14.5) H 01/09/18 10:23 Neutrophils # 9.0 K/mcL (1.6-8.9) H 01/09/18 10:23 PT 21.2 Seconds (9.4-12.1) H 01/09/18 13:58 APTT 36.2 Seconds (26.0-36.0) H 01/09/18 13:58 Potassium 3.4 mEq/L (3.5-5.1) L 01/10/18 03:56 BUN 26 mg/dL (8-23) H 01/10/18 03:56 Creatinine 1.34 mg/dL (0.70-1.30) H 01/10/18 03:56 Est GFR (Non-Af Amer) 53 (> 60) L 01/10/18 03:56 POC Glucose 130 mg/dL (70-99) H 01/09/18 19:56 Calcium 8.4 mg/dL (8.6-10.3) L 01/10/18 03:56 B-Natriuretic Peptide 2447 pg/mL (Less than 100) H 01/09/18 10:23 Triglycerides 169 mg/dL (< 150) H 01/09/18 13:58 VLDL Cholesterol, Calc 34 mg/dL (< 31) H 01/09/18 13:58 HDL Cholesterol 29 mg/dL (40-59) L 01/09/18 13:58 Urine Protein 30 mg/dL (Neg-Trace) H 01/09/18 10:43 Urine Bacteria Moderate per hpf (None-Few) H 01/09/18 10:43
[2018-01-09 14:36] LABS: INR 1.9; Prothrombin Time 21.2 Seconds (9.4-12.1)
[2018-01-09 14:38] LABS: Activated Partial Thrombo Time 36.2 Seconds (26.0-36.0)
[2018-01-09 14:44] LABS: Chol/HDL Ratio 3.6 (0-4.9)
[2018-01-09] MEDS ORDERED: Gadolinium Contrast Agent (WT Based) IV PRN (14:44)
[2018-01-09] MEDS ORDERED: Aspirin Enteric Coated 81 MG Tablet PO SCH (16:15)
[2018-01-09] MEDS: *HR* Rivaroxaban 10 MG TABLET PO SCH (16:46)
[2018-01-09] MEDS: Insulin LISPRO 300 UNITS/3 ML VIAL SQ SCH (16:47)
--- NOTE | 2018-01-09 16:54 | Electrocardiograph Report ---
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
[2018-01-09] MEDS ORDERED: Perflutren Lipid Microsphere 1.3 ML in 0.9 % Sodium Chloride 8.7 ML IVP ONE (16:58)
--- NOTE | 2018-01-09 17:08 | Internal Med History&Physical ---
Date of Encounter: 01/09/18 Time of Encounter: 17:02 Internal Medicine - H&P: HPI Chief complaint: shortness fo breath and unsteady gait Admitted From: Home History of present illness: Mr. Castano is a 67 year old male past medical history significant for A. fib on Xarelto, coronary artery disease status post multiple stent placement, systolic CHF, diabetes, hypertension, hyperlipidemia, and COPD. Patient presented to the hospital due to shortness of breath of 2 weeks durations. Patient reports that for the past 2 weeks he has been getting short of breath with minimal exertion, reports that he would walk around the living room at home and feel like he was doing some heavy duty work, due to the shortness of breath. Reports that he decided to come to the ED today because for the past 2 days he has been getting short of breath at rest. He denies chest pain, but reports feeling nauseated for the past 2 days. denies vomiting episodes. Also reports lower extremities swelling and about 10 pounds weight gain for the past 2 weeks. reports being compliant with his medications and diet. Patient also reported unsteady gait for the past couple of days for which a head ct was done which showed a CVA of undeterminable age. Patient denies focal weakness, or slurred speech. Past Med Surg Social Fam HX - Past Medical History Medical history: atrial fibrillation, coronary artery disease, diabetes, hyperlipidemia, hypertension, myocardial infarction Additional medical history: several stents, Psychiatric history: no psych history - Past Surgical History Additional surgical history: 8 stents - Social History Smoking Status: Former smoker Smokeless Tobacco Status: No Alcohol use: none Drug use: none - Family History Mother Hx Family Cardiac Disorders: No Hx Family Respiratory Disorders: Yes Hx Family Cancer: No Hx Family GI Disorders: No Hx Family Genitourinary Disorders: No Hx Family Endocrine Disorder: No Hx Family Musculoskeletal Disorders: No Hx Family Neuromuscular Disorders: No Hx Family Neurologic Disorders: No Hx Family HEENT Disorders: No Hx Family Autoimmune Disorders: No Hx Family Reproductive Disorders: No Hx Family Psychosocial Disorders: No Father Living Status: Hx Family Cardiac Disorders: Yes (cardiomegaly, chf, bbb) Hx Family Respiratory Disorders: No Hx Family Cancer: No Hx Family GI Disorders: No Hx Family Genitourinary Disorders: No Hx Family Endocrine Disorder: No Hx Family Musculoskeletal Disorders: No Hx Family Neuromuscular Disorders: No Hx Family Neurologic Disorders: No Hx Family HEENT Disorders: No Hx Family Autoimmune Disorders: No Hx Family Reproductive Disorders: No Hx Family Psychosocial Disorders: No Internal Medicine - H&P: Meds Albuterol Sulfate [Proair Hfa] 1 - 2 puff IH BID PRN 08/06/17 [History] Aspirin Enteric Coated [Aspirin EC] 325 mg PO DAILY 08/06/17 [History] Atorvastatin Calcium 80 mg PO QPM 08/06/17 [History] Budesonide/Formoterol 80/4.5 [Symbicort 80/4.5] 2 puff IH BID 08/06/17 [History] Clopidogrel Bisulfate [Plavix] 75 mg PO DAILY 08/06/17 [History] Diltiazem CD (24hr) [Cardizem CD] 120 mg PO DAILY 08/06/17 [History] Diphenhydramine HCl [Nighttime Sleep Aid] 100 mg PO HS 08/06/17 [History] Hydralazine HCl 100 mg PO TID 08/06/17 [History] Insulin Glargine [Lantus] 25 unit SQ QAM 08/06/17 [History] Insulin Glargine [Lantus] 25 unit SQ QPM 08/06/17 [History] Insulin LISPRO [HumaLOG] 6 units SQ TID 08/06/17 [History] Losartan Potassium [Cozaar] 50 mg PO DAILY 08/06/17 [History] Metoprolol Succinate [Toprol Xl] 75 mg PO BID 08/06/17 [History] Multivitamin-Min/Iron/FA/Vit K [Multi-Day Plus Minerals Tablet] 1 tab PO DAILY 08/06/17 [History] Nitroglycerin [Nitrostat] 0.4 mg SL Q5M PRN 08/06/17 [History] Rivaroxaban [Xarelto] 20 mg PO QPM 08/06/17 [History] Tamsulosin [Flomax] 0.4 mg PO DAILY 08/06/17 [History] Furosemide [Lasix] 40 mg PO DAILY 7 Days #7 tablet 08/09/17 [Rx] Metoprolol XL (24 HR) Succ [Toprol Xl] 100 mg PO BID 7 Days #14 tab.er.24h 08/09/17 [Rx] Allergy/AdvReac Type Severity Reaction Status Date / Time No Known Allergies Allergy Verified 01/09/18 09:33 All Systems PM: A 10-system review of systems was performed and is negative for pertinent findings except as documented above in the HPI. - Constitutional Constitutional: weakness, weight gain, no anorexia, no chills, no fever(s), no lethargy - Cardiovascular Cardiovascular ROS IM: dyspnea, dyspnea on exertion, lightheadedness, orthopnea, paroxysmal nocturnal dyspnea, no chest pain, no irregular heart rhythm, no palpitations - Respiratory Respiratory: no cough, no wheezing, no excessive phlegm production - Gastrointestinal Gastrointestinal: no abdominal pain, no melena, no nausea, no tenesmus, no vomiting - Genitourinary Genitourinary ROS male: no hematuria, no testicular pain, no urinary frequency, no urinary hesitancy, no urinary urgency - Musculoskeletal Musculoskeletal ROS IM: no atrophy, no back pain - Integumentary Integumentary IM: rash (in the lower extremities b/l. ), no erythema - Neurological Neurological ROS: headache(s), lack of coordination, weakness, no focal weakness, no loss of vision, no paresthesias - Psychiatric Psychiatric: no homicidal ideation, no irritability - Endocrine Endocrine IM: no polydipsia, no polyphagia, no polyuria - Hematologic/Lymphatic Hematologic/Lymphatic: no easy bruising - Allergic/Immunologic Allergic/Immunologic: no wheezing Additional comments: rest of the review of system negative. - Constitutional Vitals: Temp Pulse Resp BP Pulse Ox 97.5 F L 77 18 132/84 90 01/09/18 15:44 01/09/18 15:44 01/09/18 15:44 01/09/18 15:44 01/09/18 15:44 Exam: Vitals: Reviewed General: Obese, AOx4. In mild distress due to shortness of breath. Skin: Warm and supple. HEENT: Moist mucous membranes. No conjunctivae pallor. Neck: No lymphadenopathy. No JVD. No carotid bruits. No palpable thyroid. Chest: Diminished thoracic expansion. mild crackles at the bases b/l. no wheezing. Heart: RRR, Normal S1 & S2; rhythmic. No rubs or murmurs. Abdomen: Non-distended, soft and non-tender to palpation. Extremities: No cyanosis. 2+ edema in the lower extremities b/l. No calf tenderness. Normal distal pulses. Neurological: Sensation light touch intact. Cranial nerves 2-12 is intact. Not aphasic, gait is steady, rapid hand movements intact, [id number] intact, Psych: Affect appropriate. Internal Med - H&P Results - Labs CBC & Chem 7: 01/09/18 10:23 01/09/18 10:23 Labs: Short CBC 01/09/18 Range/Units 10:23 WBC 12.3 H (4.3-11.1) K/mcL Hgb 14.4 (12.9-16.9) g/dL Hct 43.1 (37.5-50.1) % Plt Count 175 (140-400) K/mcL Neutrophils # 9.0 H (1.6-8.9) K/mcL BMP 01/09/18 10:23 Sodium 142 Potassium 3.8 Chloride 107 Carbon Dioxide 26 BUN 24 H Creatinine 1.28 Glucose 165 H Calcium 9.0 Cardiac Enzymes 01/09/18 Range/Units 10:23 Troponin I < 0.03 (< 0.04) ng/mL Liver Function 01/09/18 Range/Units 10:23 Total Bilirubin 0.6 (0.3-1.0) mg/dL AST 30 (13-39) Units/L ALT 38 (7-52) Units/L Alkaline Phosphatase 89 (34-104) Units/L Albumin 4.0 (3.5-5.7) g/dL Urine 01/09/18 Range/Units 10:43 Urine Color Yellow (Yellow) Urine Clarity Clear (Clear) Urine pH 6.0 (5.0-8.0) pH Units Ur Specific Payne 1.019 (1.010-1.025) Urine Protein 30 H (Neg-Trace) mg/dL Urine Glucose (UA) Normal (Normal) mg/dL - Impressions ITS Impressions Chest X-Ray 01/09/18 09:54 IMPRESSION: 1. Cardiomegaly with mild vascular congestion. D/ / Scott Cade MD / Scott Cade MD Interpreting Provider: Scott Cade MD Head CT 01/09/18 10:25 IMPRESSION: 1. Poor grimm-white differentiation in the left occipital lobe which could represent an acute/early subacute infarct. MRI is recommended for further evaluation. 2. Cerebral and cerebellar parenchymal volume loss, asymmetric in the cerebellum which could be related to chronic alcohol use, long-term seizure medication, or neurodegenerative disorder. 3. Chronic microvascular white matter ischemic disease. Results were discussed with Dr. Adames at 11:35 a.m. on 01/09/2018. D/ / 01/09/2018 11:40:14 Robin Gudino MD / [email or web address] Interpreting Provider: Robin Gudino MD - Diagnostic Studies CT scan - head Status: image reviewed by me Additional comments: CVA of undeterminable age - Assessment and plan (1) CVA (cerebral vascular accident) Current Visit: Yes Status: Acute Assessment and plan: Patient with unsteady gait for the past [address] with CVA of undetermi nable age. 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 Plan: Gentle IV diruresis with furosemide 40mg/IV BID strict intake and output water restriction to 1.5 litters a day. daily weight 2 gram sodium diet will continue to follow cardiology recommendations Low dose ACEs inhibitor On metoprolol 100mg/PO daily. (3) HLD (hyperlipidemia) Current Visit: Yes Status: Chronic Assessment and plan: Atorvastatin 80 mg by mouth daily. Qualifiers: Hyperlipidemia type: unspecified Qualified Code(s): E78.5 - Hyperlipidemia, unspecified (4) DVT prophylaxis Current Visit: No Status: Acute Assessment and plan: Patient on ribaroxaban 20 mg by mouth due to A.Fib (5) Atrial fibrillation Current Visit: No Status: Chronic Assessment and plan: rate controlled. will resume patient home medications on Metoprolol 100mg/PO daily Rivaroxaban 20mg/Po daily due to High CHADSVASC score. telemetry monitoring Qualifiers: Atrial fibrillation type: paroxysmal Qualified Code(s): I48.0 - Paroxysmal atrial fibrillation (6) COPD (chronic obstructive pulmonary disease) Current Visit: No Status: Chronic Assessment and plan: no on acute exacerbation. will start patient on bronchodilators when necessary. Qualifiers: COPD type: unspecified COPD Qualified Code(s): J44.9 - Chronic obstructive pulmonary disease, unspecified (7) Coronary artery disease Current Visit: No Status: Chronic Assessment and plan: On dual antiplatelet therapy. On aspirin 325 mg and clopidogrel 75 mg by mouth daily. Qualifiers: Coronary Disease-Associated Artery/Lesion type: [place] artery [place] vs. transplanted heart: [place] heart Associated angina: without angina Qualified Code(s): I25.10 - Atherosclerotic heart disease of [place] coronary artery without angina pectoris (8) Diabetes mellitus, type 2 Current Visit: No Status: Chronic Assessment and plan: Will place patient on carb controlled diet. M 18 unit twice a day, and lispro medium dose sliding scale ac. Qualifiers: Diabetes mellitus ad terminal makeup operator insulin use: with ad terminal makeup operator use Diabetes mellitus complication status: with circulatory complication Diabetes mellitus complication detail: with other circulatory complications Qualified Code(s): E11.59 - Type 2 diabetes mellitus with other circulatory complications; Z79.4 - terminal clerk (current) use of insulin (9) Hypertension Current Visit: No Status: Chronic Assessment and plan: Patient started on metoprolol 100mg/PO daily. Qualifiers: Hypertension type: essential hypertension Qualified Code(s): I10 - Essential (primary) hypertension (10) Leukocytosis Current Visit: Yes Status: Acute Assessment and plan: likely reactive. no clear source of infection. will monitor. Qualifiers: Leukocytosis type: unspecified Qualified Code(s): D72.829 - Elevated white blood cell count, unspecified - Time Spent With Patient Total time spent is greater than 50% in coordination of care (as documented) at patient's floor/unit and/or counseling patient: Greater than 35 minutes (45)
[2018-01-09] MEDS: Furosemide 40 MG/4 ML VIAL IVP SCH (19:50)
[2018-01-09] MEDS: Insulin DETEMIR 100 UNIT/ML X5UNITS SQ SCH (20:18)
[2018-01-09] MEDS: Budesonide/Formoterol 80/4.5 MDI IH SCH (21:00)
[2018-01-10 04:45] LABS: BUN/Creatinine Ratio 19 (6-26); Blood Urea Nitrogen 26 mg/dL (8-23); Calcium 8.4 mg/dL (8.6-10.3); Carbon Dioxide 26 mEq/L (23-29); Chloride 107 mEq/L (98-107); Glucose 79 mg/dL (70-105); Magnesium 2.1 mg/dL (1.6-2.6); Osmolality,Calculated 298 (280-300); Phosphorous 3.7 mg/dL (2.7-4.5); Potassium 3.4 mEq/L (3.5-5.1); Sodium 142 mEq/L (136-145); eGFR For Non-African Americans 53 (> 60)
[2018-01-10] MEDS: Budesonide/Formoterol 80/4.5 MDI IH SCH ×2 (07:36→21:55)
[2018-01-10] MEDS: Insulin LISPRO 300 UNITS/3 ML VIAL SQ SCH ×3 (07:54→17:20)
[2018-01-10] MEDS: Metoprolol XL (24 HR) Succ 50 MG TAB.ER.24H PO SCH (07:57)
[2018-01-10] MEDS: Insulin DETEMIR 100 UNIT/ML X5UNITS SQ SCH ×2 (07:58→20:16)
[2018-01-10] MEDS: Furosemide 40 MG/4 ML VIAL IVP SCH ×2 (07:58→17:21)
[2018-01-10] MEDS: Aspirin 325 MG TABLET PO SCH (07:58)
--- NOTE | 2018-01-10 15:21 | Internal Med Progress Note ---
Hospitalist Progress Note - Encounter Date of Encounter: 01/10/18 Time of Encounter: 15:19 - Subjective Interval History: Patient seen and examined at bedside today. He reports that his difficulty in breathing is improving overnight. Also, he reports has bilateral lower extremity swelling is also improving. However, he is not yet back to baseline and is continuing to have dyspnea with exertion. - Exam Vitals: Temp Pulse Resp BP Pulse Ox 98 F 82 18 134/83 91 01/10/18 11:41 01/10/18 11:41 01/10/18 11:41 01/10/18 11:41 01/10/18 11:41 Exam: Vitals: Reviewed General: Obese, AOx4. In mild distress due to shortness of breath. Skin: Warm and supple. HEENT: Moist mucous membranes. No conjunctivae pallor. Neck: No lymphadenopathy. No JVD. No carotid bruits. No thyromegaly Chest: Diminished thoracic expansion. mild crackles at the bases b/l and in the right lobe posteriorly. no wheezing. Heart: RRR, Normal S1 & S2; rhythmic. No rubs or murmurs. Abdomen: Non-distended, soft and non-tender to palpation. Extremities: No cyanosis. 2+ edema in the lower extremities b/l. No calf tenderness. Distal pulses intact Neurological: No facial droop or slurred speech - Assessment and Plan (1) Acute on chronic HFrEF (heart failure with reduced ejection fraction) Current Visit: Yes Status: Acute Assessment and Plan: Acute on chronic exacerbation of systolic heart failure Pulmonary vascular congestion on imaging Fluid overload with BLE 2+ edema plus weight gain BNP elevated at 2447 Repeat TTE with ejection fraction comparable to prior Continue gentle IV diruresis with furosemide 40mg/IV BID strict intake and output water restriction to 2 litters a day. daily weight 2 gram sodium diet Continue Cozaar On metoprolol 100mg/PO daily. (2) Hypertension Current Visit: No Status: Chronic Assessment and Plan: BP stable Continue metoprolol 100mg/PO daily Continue Cozaar as recommended on prior admissions per cardiology (3) Diabetes mellitus, type 2 Current Visit: No Status: Chronic Assessment and Plan: Continue diabetic diet and sliding scale insulin coverage (4) Coronary artery disease Current Visit: No Status: Chronic Assessment and Plan: Continue aspirin and Plavix, continue antihypertensive medications The patient is chest pain-free Continue monitor on telemetry (5) Atrial fibrillation Current Visit: No Status: Chronic Assessment and Plan: resume patient home medications on Metoprolol 100mg/PO daily Rivaroxaban 20mg telemetry monitoring Average 12 hour heart rate of 80 (6) CVA (cerebral vascular accident) Current Visit: Yes Status: Acute Assessment and Plan: Patient with unsteady gait for the past [address] with CVA of undeterminable age Repeat imaging MRI brain without acute findings MRA of the neck without evidence of flow-limiting stenosis Neurolgy consulted TTE-with EF comparable to prior NPO Continue atorvastatin 80mg/PO daily Continue dual antiplatelet therapy Continue Rivaroxaban Pt/INR pt/ot (7) HLD (hyperlipidemia) Current Visit: Yes Status: Chronic Assessment and Plan: Continue atorvastatin (8) COPD (chronic obstructive pulmonary disease) Current Visit: No Status: Chronic Assessment and Plan: Not in acute exacerbation Continue home COPD medications (9) Leukocytosis Current Visit: Yes Status: Acute Assessment and Plan: likely reactive No obvious source of infection Continue to monitor (10) DVT prophylaxis Current Visit: No Status: Acute Assessment and Plan: Continue Xarelto - Time Spent with Patient Total time spent is greater than 50% in coordination of care (as documented) at patient's floor/unit and/or counseling patient: less than 15 minutes Plan of Care Discussed with: patient Internal Medicine: Result - Labs CBC & Chem 7: 01/09/18 10:23 01/10/18 03:56 Labs: BMP 01/10/18 03:56 Sodium 142 Potassium 3.4 L Chloride 107 Carbon Dioxide 26 BUN 26 H Creatinine 1.34 H Glucose 79 Calcium 8.4 L - ABG Interpretation ABG results: PT/INR, D-dimer PT 21.2 Seconds (9.4-12.1) H 01/09/18 13:58 - Impressions Impressions Brain MRI 01/09/18 13:39 IMPRESSION: No acute infarct. In particular, no acute MRI abnormality in left occipital lobe. Mild chronic type microvascular ischemic changes in the white matter. No evidence of hemodynamically significant stenosis in the major cervical arterial vasculature. D/ / Scar Dow MD / Scar Dow MD Interpreting Provider: Scar Dow MD Neck MRA 01/09/18 14:44 IMPRESSION: No acute infarct. In particular, no acute MRI abnormality in left occipital lobe. Mild chronic type microvascular ischemic changes in the white matter. No evidence of hemodynamically significant stenosis in the major cervical arterial vasculature. D/ / Sacr Dow MD / Scar Dow MD Interpreting Provider: Scar Dow MD Consult Discharge Plan - Plan Referrals: Kenneth Cabral MD [Primary Care Provider] - (2) Hypertension Qualifiers: Hypertension type: essential hypertension Qualified Code(s): I10 - Essential (primary) hypertension (3) Diabetes mellitus, type 2 Qualifiers: Diabetes mellitus mcc insulin use: with mcc use Diabetes mellitus complication status: with circulatory complication Diabetes mellitus complication detail: with other circulatory complications Qualified Code(s): E11.59 - Type 2 diabetes mellitus with other circulatory complications; Z79.4 - oysterman (current) use of insulin (4) Coronary artery disease Qualifiers: Coronary Disease-Associated Artery/Lesion type: [place] artery [place] vs. transplanted heart: [place] heart Associated angina: without angina Qualified Code(s): I25.10 - Atherosclerotic heart disease of [place] coronary artery without angina pectoris (5) Atrial fibrillation Qualifiers: Atrial fibrillation type: paroxysmal Qualified Code(s): I48.0 - Paroxysmal atrial fibrillation (6) CVA (cerebral vascular accident) Qualifiers: CVA mechanism: unspecified Qualified Code(s): I63.9 - Cerebral infarction, unspecified (7) HLD (hyperlipidemia) Qualifiers: Hyperlipidemia type: unspecified Qualified Code(s): E78.5 - Hyperlipidemia, unspecified (8) COPD (chronic obstructive pulmonary disease) Qualifiers: COPD type: unspecified COPD Qualified Code(s): J44.9 - Chronic obstructive pulmonary disease, unspecified (9) Leukocytosis Qualifiers: Leukocytosis type: unspecified Qualified Code(s): D72.829 - Elevated white blood cell count, unspecified
[2018-01-10] MEDS: *HR* Rivaroxaban 10 MG TABLET PO SCH (17:22)
[2018-01-11] MEDS: Budesonide/Formoterol 80/4.5 MDI IH SCH ×2 (08:10→20:26)
[2018-01-11] MEDS: Aspirin 325 MG TABLET PO SCH (08:51)
[2018-01-11] MEDS: Metoprolol XL (24 HR) Succ 50 MG TAB.ER.24H PO SCH (08:51)
[2018-01-11] MEDS: Furosemide 40 MG/4 ML VIAL IVP SCH ×2 (08:51→17:31)
[2018-01-11] MEDS: Insulin LISPRO 300 UNITS/3 ML VIAL SQ SCH ×3 (08:55→17:29)
[2018-01-11] MEDS ORDERED: Naloxone 0.4 MG/ML INJ IVP PRN (10:44)
[2018-01-11] MEDS ORDERED: traZODone 50 MG TABLET PO PRN (10:51)
[2018-01-11 11:32] LABS: Basophils # 0.1 K/mcL (0.0-0.2); Basophils % 0.8 %; Eosinophils # 0.2 K/mcL (0.0-0.6); Eosinophils % 1.4 %; Hematocrit 41.4 % (37.5-50.1); Hemoglobin 13.8 g/dL (12.9-16.9); Immature Granulocytes % 0.4 % (0-4); Lymphocytes # 2.2 K/mcL (0.6-4.6); Lymphocytes % 20.3 %; Mean Corpuscular HGB Conc 33.3 g/dL (31.6-35.5); Mean Corpuscular Hemoglobin 31.8 pg (28.0-33.3); Mean Corpuscular Volume 95.4 fL (83.0-100.0); Mean Platelet Volume 11.8 fL (9.4-12.4); Monocytes # 0.8 K/mcL (0.0-1.3); Monocytes % 7.3 %; Neutrophils # 7.5 K/mcL (1.6-8.9); Platelet Count 168 K/mcL (140-400); Red Blood Count 4.34 M/mcL (4.19-5.50); Red Cell Distribution Width 14.2 % (11.5-14.5); Segmented Neutrophils % 69.8 %
[2018-01-11 11:50] LABS: BUN/Creatinine Ratio 20 (6-26); Blood Urea Nitrogen 27 mg/dL (8-23); Calcium 8.4 mg/dL (8.6-10.3); Carbon Dioxide 26 mEq/L (23-29); Chloride 105 mEq/L (98-107); Glucose 176 mg/dL (70-105); Osmolality,Calculated 301 (280-300); Potassium 3.2 mEq/L (3.5-5.1); Sodium 141 mEq/L (136-145); eGFR For Non-African Americans 54 (> 60)
[2018-01-11] MEDS ORDERED: Furosemide 20 MG/2 ML VIAL IVP ONE (13:13)
[2018-01-11] MEDS: Insulin DETEMIR 100 UNIT/ML X5UNITS SQ SCH ×2 (13:25→20:42)
[2018-01-11] MEDS ORDERED: *HR* LORazepam 2 MG/ML VIAL IVP ONE (13:28)
[2018-01-11] MEDS ORDERED: *HR* LORazepam 2 MG/ML VIAL ONE (13:35)
--- NOTE | 2018-01-11 14:38 | Internal Med Progress Note ---
Hospitalist Progress Note - Encounter Date of Encounter: 01/11/18 Time of Encounter: 14:36 - Subjective Interval History: Patient seen and examined at bedside today. He reports that his difficulty in breathing has not changed overnight. bilateral lower extremity swelling is also improving. However, he is not yet back to baseline and is continuing to have dyspnea with exertion. Additionally, patient is reporting bouts of anxiety. - Exam Vitals: Temp Pulse Resp BP Pulse Ox 97.8 F 64 17 127/78 96 01/11/18 10:45 01/11/18 10:45 01/11/18 10:45 01/11/18 10:45 01/11/18 10:45 Exam: Vitals: Reviewed General: Obese, AOx4. In mild distress due to shortness of breath. Skin: Warm and supple. HEENT: Moist mucous membranes. No conjunctivae pallor. Neck: No lymphadenopathy. No JVD. No carotid bruits. No thyromegaly Chest: Diminished thoracic expansion. Lungs are now clear/diminished throughout without bibasilar rales Heart: RRR, Normal S1 & S2; rhythmic. No rubs or murmurs. Abdomen: Non-distended, soft and non-tender to palpation. Extremities: No cyanosis. 2+ edema in the lower extremities b/l. No calf tenderness. Distal pulses intact Neurological: No facial droop or slurred speech Psych: Anxious - Assessment and Plan (1) Acute on chronic HFrEF (heart failure with reduced ejection fraction) Current Visit: Yes Status: Acute Assessment and Plan: Acute on chronic exacerbation of systolic heart failure Pulmonary vascular congestion on imaging Fluid overload with BLE 2+ edema plus weight gain BNP elevated at 2447 Repeat TTE with ejection fraction comparable to prior Continue gentle IV diruresis with furosemide 40mg/IV BID strict intake and output water restriction to 2 litters a day. daily weight 2 gram sodium diet Continue Cozaar On metoprolol 100mg/PO daily. 01/11--2+ pitting edema continue 40 mg IV Lasix twice a day. Given additional 20 mg IV push Lasix now. Continue to strictly monitor I's and O's, daily weight. Continue 2 g sodium restriction diet and change the intersection to 1.5 L (2) Hypertension Current Visit: No Status: Chronic Assessment and Plan: BP stable Continue metoprolol 100mg/PO daily Continue Cozaar as recommended on prior admissions per cardiology (3) Diabetes mellitus, type 2 Current Visit: No Status: Chronic Assessment and Plan: Continue diabetic diet and sliding scale insulin coverage (4) Coronary artery disease Current Visit: No Status: Chronic Assessment and Plan: Continue aspirin and Plavix, continue antihypertensive medications, continue Lipitor The patient is chest pain-free Continue monitor on telemetry (5) Atrial fibrillation Current Visit: No Status: Chronic Assessment and Plan: resume patient home medications on Metoprolol 100mg/PO daily Rivaroxaban 20mg telemetry monitoring Average 12 hour heart rate of 80 (6) CVA (cerebral vascular accident) Current Visit: Yes Status: Ruled-out Assessment and Plan: Patient with unsteady gait for the past [address] with CVA of undeterminable age Repeat imaging MRI brain without acute findings MRA of the neck without evidence of flow-limiting stenosis Neurolgy consulted TTE-with EF comparable to prior NPO Continue atorvastatin 80mg/PO daily Continue dual antiplatelet therapy Continue Rivaroxaban Pt/INR pt/ot (7) HLD (hyperlipidemia) Current Visit: Yes Status: Chronic Assessment and Plan: Continue atorvastatin (8) COPD (chronic obstructive pulmonary disease) Current Visit: No Status: Chronic Assessment and Plan: Not in acute exacerbation Continue home COPD medications (9) Leukocytosis Current Visit: Yes Status: Resolved Assessment and Plan: likely reactive No obvious source of infection Continue to monitor 01/11--resolved (10) DVT prophylaxis Current Visit: No Status: Acute Assessment and Plan: Continue Xarelto - Time Spent with Patient Total time spent is greater than 50% in coordination of care (as documented) at patient's floor/unit and/or counseling patient: less than 15 minutes Plan of Care Discussed with: patient Internal Medicine: Result - Labs CBC & Chem 7: 01/11/18 11:16 01/11/18 11:16 Labs: Short CBC 01/11/18 Range/Units 11:16 WBC 10.7 (4.3-11.1) K/mcL Hgb 13.8 (12.9-16.9) g/dL Hct 41.4 (37.5-50.1) % Plt Count 168 (140-400) K/mcL Neutrophils # 7.5 (1.6-8.9) K/mcL BMP 01/11/18 11:16 Sodium 141 Potassium 3.2 L Chloride 105 Carbon Dioxide 26 BUN 27 H Creatinine 1.33 H Glucose 176 H Calcium 8.4 L - ABG Interpretation ABG results: PT/INR, D-dimer PT 21.2 Seconds (9.4-12.1) H 01/09/18 13:58 Consult Discharge Plan - Plan Referrals: Kenneth Cabral MD [Primary Care Provider] - (2) Hypertension Qualifiers: Hypertension type: essential hypertension Qualified Code(s): I10 - Essential (primary) hypertension (3) Diabetes mellitus, type 2 Qualifiers: Diabetes mellitus custodial insulin use: with account financial manager use Diabetes mellitus complication status: with circulatory complication Diabetes mellitus complication detail: with other circulatory complications Qualified Code(s): E11.59 - Type 2 diabetes mellitus with other circulatory complications; 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 artery [place] vs. transplanted heart: [place] heart Associated angina: without angina Qualified Code(s): I25.10 - Atherosclerotic heart disease of [place] coronary artery without angina pectoris (5) Atrial fibrillation Qualifiers: Atrial fibrillation type: paroxysmal Qualified Code(s): I48.0 - Paroxysmal at rial fibrillation (6) CVA (cerebral vascular accident) Qualifiers: CVA mechanism: unspecified Qualified Code(s): I63.9 - Cerebral infarction, u nspecified (7) HLD (hyperlipidemia) Qualifiers: Hyperlipidemia type: unspecified Qualified Code(s): E78.5 - Hyperlipidemia, unspecified (8) COPD (chronic obstructive pulmonary disease) Qualifiers: COPD type: unspecified COPD Qualified Code(s): J44.9 - Chronic obstructive pulmonary disease, unspecified (9) Leukocytosis Qualifiers: Leukocytosis type: unspecified Qualified Code(s): D72.829 - Elevated white blood cell count, unspecified
[2018-01-11] MEDS: *HR* Rivaroxaban 10 MG TABLET PO SCH (17:33)
[2018-01-11] MEDS: clonazePAM 0.5 MG TABLET PO SCH (20:42)
[2018-01-12 06:56] LABS: Basophils # 0.1 K/mcL (0.0-0.2); Basophils % 1.2 %; Eosinophils # 0.2 K/mcL (0.0-0.6); Eosinophils % 1.5 %; Hematocrit 42.4 % (37.5-50.1); Hemoglobin 14.1 g/dL (12.9-16.9); Immature Granulocytes % 0.3 % (0-4); Lymphocytes # 2.4 K/mcL (0.6-4.6); Lymphocytes % 22.6 %; Mean Corpuscular HGB Conc 33.3 g/dL (31.6-35.5); Mean Corpuscular Hemoglobin 32.2 pg (28.0-33.3); Mean Corpuscular Volume 96.8 fL (83.0-100.0); Monocytes # 0.7 K/mcL (0.0-1.3); Monocytes % 6.9 %; Neutrophils # 7.1 K/mcL (1.6-8.9); Platelet Count 175 K/mcL (140-400); Red Blood Count 4.38 M/mcL (4.19-5.50); Red Cell Distribution Width 14.4 % (11.5-14.5); Segmented Neutrophils % 67.5 %
[2018-01-12 07:16] LABS: BUN/Creatinine Ratio 23 (6-26); Blood Urea Nitrogen 28 mg/dL (8-23); Calcium 8.7 mg/dL (8.6-10.3); Carbon Dioxide 26 mEq/L (23-29); Chloride 106 mEq/L (98-107); Glucose 98 mg/dL (70-105); Osmolality,Calculated 297 (280-300); Potassium 3.3 mEq/L (3.5-5.1); Sodium 141 mEq/L (136-145); eGFR For Non-African Americans > 60 (> 60)
[2018-01-12] MEDS: Insulin LISPRO 300 UNITS/3 ML VIAL SQ SCH ×2 (07:33→12:08)
[2018-01-12] MEDS: Budesonide/Formoterol 80/4.5 MDI IH SCH (08:11)
[2018-01-12] MEDS: Metoprolol XL (24 HR) Succ 50 MG TAB.ER.24H PO SCH (08:27)
[2018-01-12] MEDS: Furosemide 40 MG/4 ML VIAL IVP SCH (08:27)
[2018-01-12] MEDS: clonazePAM 0.5 MG TABLET PO SCH (08:27)
[2018-01-12] MEDS: Aspirin 325 MG TABLET PO SCH (08:27)
[2018-01-12] MEDS: Insulin DETEMIR 100 UNIT/ML X5UNITS SQ SCH (08:39)
[2018-01-12 11:41] VITALS: BP 125/74
--- NOTE | 2018-01-12 13:57 | Discharge Summary ---
- NOTES TO OUTPATIENT PROVIDER Notes to Outpatient Provider: No studies pending at time of discharge. Admitted with acute exacerbation of CHF. Instructed to follow-up with PCP within 1 week of discharge. He was given a three-day dose of twice a day Lasix to continue to assist with diuresis. Orders not resulted at time of discharge: Pending orders 01/13/18 04:00 BMP [Basic Metabolic Panel] AM 0400 Complete Blood Count [HEME] AM 0400 Date of Encounter: 01/12/18 Time of Encounter: 13:51 - Discharge Diagnosis (1) Acute on chronic HFrEF (heart failure with reduced ejection fraction) Priority: Primary Status: Acute (2) Hypertension Priority: Secondary Status: Chronic Qualifiers: Hypertension type: essential hypertension Qualified Code(s): I10 - Essential (primary) hypertension (3) Diabetes mellitus, type 2 Priority: Secondary Status: Chronic Qualifiers: Diabetes mellitus lap winder insulin use: with lap winder use Diabetes mellitus complication status: with circulatory complication Diabetes mellitus complication detail: with other circulatory complications Qualified Code(s): E11.59 - Type 2 diabetes mellitus with other circulatory complications; Z79.4 - care home (current) use of insulin (4) Coronary artery disease Priority: Secondary Status: Chronic Qualifiers: Coronary Disease-Associated Artery/Lesion type: [place] artery [place] vs. transplanted heart: [place] heart Associated angina: without angina Qualified Code(s): I25.10 - Atherosclerotic heart disease of [place] coronary artery without angina pectoris (5) Atrial fibrillation Priority: Secondary Status: Chronic Qualifiers: Atrial fibrillation type: paroxysmal Qualified Code(s): I48.0 - Paroxysmal atrial fibrillation (6) CVA (cerebral vascular accident) Priority: Secondary Status: Ruled-out Qualifiers: CVA mechanism: unspecified Qualified Code(s): I63.9 - Cerebral infarction, unspecified (7) HLD (hyperlipidemia) Priority: Secondary Status: Chronic Qualifiers: Hyperlipidemia type: unspecified Qualified Code(s): E78.5 - Hyperlipidemia, unspecified (8) COPD (chronic obstructive pulmonary disease) Priority: Secondary Status: Chronic Qualifiers: COPD type: unspecified COPD Qualified Code(s): J44.9 - Chronic obstructive pulmonary disease, unspecified (9) Leukocytosis Priority: Secondary Status: Resolved Qualifiers: Leukocytosis type: unspecified Qualified Code(s): D72.829 - Elevated white blood cell count, unspecified (10) DVT prophylaxis Priority: Secondary Status: Acute (11) Anxiety Priority: Secondary Status: Acute Assessment and Plan: new rx for clonazepam anxiety improved Hospital course: Mr. Castano is a 67 year old male with a PMH significant for A. fib on Xarelto, CAD with multiple stents, systolic CHF, DM, HTN, HLD and COPD. Presents to the hospital with acute exacerbation of CHF with shortness of breath, weight gain and bilateral lower extremity swelling 2 weeks. He is additionally reporting a 10 pound weight gain. He reports that he takes Lasix at home but his doses were not helping with the fluid retention. There is also concern with unsteady gait 70 CT of the head was completed in the ED with possible signs of ischemia. Repeat MRI ruled out acute ischemia noting chronic changes. MRA of head and neck unremarkable. Ruled out CVA. Increase patient's diuretics and diuresed showing improvement in respirations and improvement of bilateral lower extremity swelling. TTE obtained showing EF similar compared to prior studies at 20%. He is being discharged home with a 3 day course of Lasix 40 mg by mouth twice a day and then has been instructed to resume 40 mg daily and follow-up with PCP in 1-week. Discharge discussed with: patient, nurse - Time Spent with Patient Total time spent providing and/or coordinating discharge services: Less than 30 minutes - Discharge Medications Prescriptions: clonazePAM [Klonopin] 0.25 mg PO BID 30 Days #60 tablet Furosemide [Lasix] 40 mg PO BID 3 Days #6 tab Furosemide [Lasix] 40 mg PO DAILY 30 Days #30 tablet Home Medications: Albuterol Sulfate [Proair Hfa] 1 - 2 puff IH BID PRN 08/06/17 [History] Aspirin Enteric Coated [Aspirin EC] 325 mg PO DAILY 08/06/17 [History] Atorvastatin Calcium 80 mg PO QPM 08/06/17 [History] Clopidogrel Bisulfate [Plavix] 75 mg PO DAILY 08/06/17 [History] Diltiazem CD (24hr) [Cardizem CD] 120 mg PO DAILY 08/06/17 [History] Diphenhydramine HCl [Nighttime Sleep Aid] 100 mg PO HS 08/06/17 [History] Hydralazine HCl 100 mg PO TID 08/06/17 [History] Insulin Glargine [Lantus] 30 unit SQ BID 08/06/17 [History] Insulin LISPRO [HumaLOG] 6 units SQ TID 08/06/17 [History] Metoprolol Succinate [Toprol Xl] 75 mg PO BID 08/06/17 [History] Multivitamin-Min/Iron/FA/Vit K [Multi-Day Plus Minerals Tablet] 1 tab PO DAILY 08/06/17 [History] Nitroglycerin [Nitrostat] 0.4 mg SL Q5M PRN 08/06/17 [History] Rivaroxaban [Xarelto] 20 mg PO QPM 08/06/17 [History] Tamsulosin [Flomax] 0.4 mg PO DAILY 08/06/17 [History] Fluticasone/Vilanterol [Breo Ellipta 100-25 Mcg INH] 1 puff IH DAILY 01/10/18 [History] Sacubitril/Valsartan 97/103 mg [Entresto 97 mg-103 mg Tablet] 1 tab PO BID 01/10/18 [History] Furosemide [Lasix] 40 mg PO BID 3 Days #6 tab 01/12/18 [Rx] Furosemide [Lasix] 40 mg PO DAILY 30 Days #30 tablet 01/12/18 [Rx] clonazePAM [Klonopin] 0.25 mg PO BID 30 Days #60 tablet 01/12/18 [Rx] Allergies/Adverse Reactions: Allergy/AdvReac Type Severity Reaction Status Date / Time No Known Allergies Allergy Verified 01/09/18 09:33 Date of admission: 01/11/18 10:44 Primary care physician: Kenneth Cabral MD Consults: 01/09/18 13:43 Consult to Neurology [CONS] Routine Consulting Provider: Neurology [facility] Reason for Consult: CVA Call Completed: No 01/12/18 08:29 Consult to Nurse Navigator [CONS] Routine Comment: CHF Discharging clinician: Donald Neville Anticipated date of discharge: 01/12/18 - Constitutional Vitals: Temp Pulse Resp BP Pulse Ox 97.6 F 82 18 125/74 94 01/12/18 11:39 01/12/18 11:39 01/12/18 11:39 01/12/18 11:39 01/12/18 11:39 General appearance: Present: A&O X 3 Exam: Vitals: Reviewed General: Obese, AOx4. NAD Skin: Warm and supple. HEENT: Moist mucous membranes. No conjunctivae pallor. Neck: No lymphadenopathy. No JVD. No carotid bruits. No thyromegaly Chest: Diminished thoracic expansion. Lungs are now clear/diminished throughout without bibasilar rales Heart: RRR, Normal S1 & S2; rhythmic. No rubs or murmurs. Abdomen: Non-distended, soft and non-tender to palpation. Extremities: No cyanosis. 2+ edema in the lower extremities b/l. No calf tenderness. Distal pulses intact Neurological: No facial droop or slurred speech Psych: calm - Patient Status Disposition: Home, Self-Care Condition: Good Functional capacity at discharge: independent ambulation Overall status at discharge: patient is progressing back to baseline - Discharge Instructions Instructions: Anxiety (DC), Heart Failure (DC) Follow Up With: Kenneth Cabral MD [Primary Care Provider] - 01/20/18 12:20 pm - Diet and Activity Activity: increase activity as tolerated, resume usual activities as tolerated Diet: diabetic diet, low fat, low cholesterol, low salt diet, other (suggest calorie and fluid restriction diet. 1.5 Liters daily)
== END 2018-01-12 15:23 | disposition home or self-care (01) | DRG 293 ==
LOC: 3BNU 09:26 → EMEROOARM 09:26 → 3BNU 12:30
PROVIDERS: ADMIT Internal Medicine Cardiovascular Disease; ATTEND Internal Medicine Cardiovascular Disease

== ENCOUNTER 2018-03-06 17:32 | Inpatient (IN) ==
--- NOTE | 2018-03-06 18:03 | Emergency Department Note ---
Disposition Clinical Impression: Cellulitis Qualifiers: Site of cellulitis: extremity Site of cellulitis of extremity: lower extremity Laterality: left Qualified Code(s): L03.116 - Cellulitis of left lower limb Disposition: Admitted As Inpatient Condition: Good Time of Disposition: 20:59 General Adult HPI - General Chief complaint: ED General Medical Stated complaint: fever/nose bleeds/leg swelling Source: patient Limitations: no limitations Nursing Notes Reviewed: Yes Vital Signs Reviewed: Yes - History of Present Illness HPI Narrative: Patient is a 67-year-old female with a history of coronary artery disease, congestive heart failure and diabetes who presents to the ED with left lower extremity swelling or redness. Patient states on Friday he fell and hit his left thigh and left ankle. He had immediate swelling after. The swelling has gotten worse. He is now severely red and inflamed. Patient has pain. Decreased sensation. Decreased movement. His left lower extremity. Patient states Friday night he had a fever of 105.0 has been taking Advil for the pain and fever. She also had a fall last week with slip on ice. His left brown has open wound. Calcific past week he has daily nosebleeds. They happened after blowing his nose. Easy to stop the bleeding every time. denies Chest pain, shortness of breath. Pain Scale: 7 - Related Data Home Medications Medication Instructions Recorded Confirmed Albuterol Sulfate [Proair Hfa] 1 - 2 puff IH BID PRN 08/06/17 02/12/18 Aspirin Enteric Coated [Aspirin EC] 325 mg PO DAILY 08/06/17 02/12/18 Atorvastatin Calcium 80 mg PO QPM 08/06/17 02/12/18 Clopidogrel Bisulfate [Plavix] 75 mg PO DAILY 08/06/17 02/12/18 Hydralazine HCl 100 mg PO TID 08/06/17 01/10/18 Insulin Glargine [Lantus] 60 unit SQ DAILY 08/06/17 02/12/18 Insulin LISPRO [HumaLOG] 6 units SQ TID 08/06/17 02/12/18 Metoprolol Succinate [Toprol Xl] 75 mg PO BID 08/06/17 02/12/18 Multivitamin-Min/Iron/FA/Vit K 1 tab PO DAILY 08/06/17 02/12/18 [Multi-Day Plus Minerals Tablet] Nitroglycerin [Nitrostat] 0.4 mg SL Q5M PRN 08/06/17 02/12/18 Rivaroxaban [Xarelto] 20 mg PO QPM 08/06/17 02/12/18 Tamsulosin [Flomax] 0.4 mg PO DAILY 08/06/17 02/12/18 Fluticasone/Vilanterol [Breo 1 puff IH DAILY 01/10/18 02/12/18 Ellipta 100-25 Mcg INH] Sacubitril/Valsartan 97/103 mg 1 tab PO BID 01/10/18 02/12/18 [Entresto 97 mg-103 mg Tablet] Previous Rx's Medication Instructions Recorded Furosemide [Lasix] 40 mg PO DAILY 30 Days #30 tablet 01/12/18 clonazePAM [Klonopin] 0.25 mg PO BID 30 Days #60 tablet 01/12/18 Allergies Allergy/AdvReac Type Severity Reaction Status Date / Time No Known Allergies Allergy Verified 01/09/18 09:33 Constitutional: Reports: as per HPI Cardiovascular: Reports: as per HPI Respiratory: Reports: as per HPI Gastrointestinal: Denies: abdominal pain, nausea, vomiting, diarrhea Genitourinary: Denies: urgency, dysuria Neurological: Denies: headache, weakness Past Medical History - Past Medical History Medical history: Reports: atrial fibrillation, CHF, coronary artery disease, d iabetes, hyperlipidemia, hypertension, myocardial infarction, other Surgical history: Reports: pacemaker/AICD Psychiatric history: Reports: no psych history - Social History Smoking Status: Former smoker Smokeless Tobacco Status: No Alcohol use: Reports: none Drug use: Reports: none Physical Exam Personal brought in by wheelchair. Difficulty transferring to bed. However he was able to his own weight and take a couple steps - General Limitations: no limitations General appearance: alert, in no apparent distress - Head Head exam: atraumatic, normocephalic, normal inspection - Eye Eye exam: Present: normal appearance, PERRL, EOMI - Chest Chest inspection: Present: normal inspection, symmetric chest wall rise, other (Port was inspected. There is no tenderness, erythema). Absent: tenderness - Respiratory Respiratory exam: Present: normal lung sounds bilaterally, respiratory distress. Absent: wheezes, stridor - Cardiovascular Cardiovascular exam: Present: regular rate, normal rhythm, +S1, +S2. Absent: bradycardia, tachycardia, systolic murmur, diastolic murmur - Abdominal Exam Abdominal exam: Present: soft, Non-Tender - Expanded Lower Extremity Exam Upper leg exam: Present: normal inspection Lower leg exam: Present: tenderness, swelling, erythema, other (Patient has circumferential erythema and swelling of his left lower extremity. Seeping wound on left brown. Tenderness to palpation. Pulses present 3 sensation compared to right side) - Psychiatric Psychiatric exam: Present: normal affect, normal mood Course Vital Signs Temperature 97.9 F 03/06/18 17:43 Pulse Rate 73 03/06/18 17:43 Respiratory Rate 18 03/06/18 17:43 Blood Pressure 112/76 03/06/18 17:43 O2 Sat by Pulse Oximetry 97 03/06/18 17:43 Temperature 98.3 F 03/06/18 19:20 Pulse Rate 88 03/06/18 20:36 Respiratory Rate 16 03/06/18 20:36 Blood Pressure 129/82 03/06/18 20:36 O2 Sat by Pulse Oximetry 95 03/06/18 20:36 Oxygen Delivery Oxygen Delivery Room Air Medical Decision Making - [facility] Narrative Medical decision making narrative: She appears of lower extremity cellulitis. One open wound from one week ago. Labs, x-ray of affected area and antibiotics ordered. Affected area was marked. White count 17.3 accepted by hospitalist - Medical Records Medical records reviewed: Yes I reviewed the patient's medical records. - Lab Data Lab results reviewed: Yes I reviewed the patient's lab results. Result diagrams: 03/06/18 18:00 03/06/18 18:00 Lab Results 03/06/18 03/06/18 Range/Units 18:00 18:00 WBC 17.3 H (4.3-11.1) K/mcL RBC 4.62 (4.19-5.50) M/mcL Hgb 14.0 (12.9-16.9) g/dL Hct 42.9 (37.5-50.1) % MCV 92.9 (83.0-100.0) fL MCH 30.3 (28.0-33.3) pg MCHC 32.6 (31.6-35.5) g/dL RDW 14.5 (11.5-14.5) % Plt Count 133 L (140-400) K/mcL MPV 11.5 (9.4-12.4) fL Immature Gran % 0.5 (0-4) % Seg Neutrophils % 89.5 % Lymphocytes % 5.4 % Monocytes % 3.4 % Eosinophils % 0.7 % Basophils % 0.5 % Neutrophils # 15.5 H (1.6-8.9) K/mcL Lymphocytes # 0.9 (0.6-4.6) K/mcL Monocytes # 0.6 (0.0-1.3) K/mcL Eosinophils # 0.1 (0.0-0.6) K/mcL Basophils # 0.1 (0.0-0.2) K/mcL Sodium 138 (136-145) mEq/L Potassium 3.6 (3.5-5.1) mEq/L Chloride 103 (98-107) mEq/L Carbon Dioxide 27 (23-29) mEq/L BUN 22 (8-23) mg/dL Creatinine 1.08 (0.70-1.30) mg/dL Est GFR ( Amer) > 60 (> 60) Est GFR (Non-Af Amer) > 60 (> 60) BUN/Creatinine Ratio 20 (6-26) Glucose 215 H (70-105) mg/dL Calculated Osmolality 296 (280-300) Calcium 8.8 (8.6-10.3) mg/dL C-Reactive Protein 204 H (Less than 10) mg/L
[2018-03-06] MEDS ORDERED: *HR* HYDROmorphone (PF) 1 MG/ML SYRINGE IVP ONE (18:12)
[2018-03-06] MEDS ORDERED: 0.9 % Sodium Chloride 500 ML IVC ONE (18:12)
[2018-03-06] MEDS ORDERED: cefTRIAXone 2,000 MG in Water for inj. (sterile) 20 ML 20 ML IVP ONE (18:12)
[2018-03-06 18:31] LABS: Basophils # 0.1 K/mcL (0.0-0.2); Basophils % 0.5 %; Eosinophils # 0.1 K/mcL (0.0-0.6); Eosinophils % 0.7 %; Hematocrit 42.9 % (37.5-50.1); Immature Granulocytes % 0.5 % (0-4); Lymphocytes # 0.9 K/mcL (0.6-4.6); Lymphocytes % 5.4 %; Mean Corpuscular HGB Conc 32.6 g/dL (31.6-35.5); Mean Corpuscular Hemoglobin 30.3 pg (28.0-33.3); Mean Corpuscular Volume 92.9 fL (83.0-100.0); Mean Platelet Volume 11.5 fL (9.4-12.4); Monocytes # 0.6 K/mcL (0.0-1.3); Monocytes % 3.4 %; Neutrophils # 15.5 K/mcL (1.6-8.9); Platelet Count 133 K/mcL (140-400); Red Blood Count 4.62 M/mcL (4.19-5.50); Red Cell Distribution Width 14.5 % (11.5-14.5); Segmented Neutrophils % 89.5 %
[2018-03-06 18:43] LABS: BUN/Creatinine Ratio 20 (6-26); Blood Urea Nitrogen 22 mg/dL (8-23); C-Reactive Protein 204 mg/L (Less than 10); Calcium 8.8 mg/dL (8.6-10.3); Carbon Dioxide 27 mEq/L (23-29); Chloride 103 mEq/L (98-107); Glucose 215 mg/dL (70-105); Osmolality,Calculated 296 (280-300); Potassium 3.6 mEq/L (3.5-5.1); Sodium 138 mEq/L (136-145); eGFR For Non-African Americans > 60 (> 60)
[2018-03-06] MEDS ORDERED: Acetaminophen 325 MG TABLET PO PRN (22:02)
[2018-03-06] MEDS ORDERED: *HR* HYDROcodone/Acet 5/325 mg TABLET PO PRN (22:02)
[2018-03-06] MEDS ORDERED: Naloxone 0.4 MG/ML INJ IVP PRN (22:02)
[2018-03-06] MEDS: *HR* OxyCODONE Immed Rel 5 MG TABLET PO PRN (22:17)
[2018-03-07] MEDS ORDERED: Dextrose Gel 15 GM/37.5 ML TUBE PO PRN ×2 (00:16)
[2018-03-07] MEDS ORDERED: *HR* Dextrose 50 % in Water (Syg) 50 ML SYRINGE IVP PRN (00:16)
[2018-03-07] MEDS ORDERED: Naloxone 0.4 MG/ML INJ IVP PRN (00:16)
[2018-03-07] MEDS ORDERED: D5% in Water 1,000 ML IVC PRN (00:16)
[2018-03-07] MEDS: Piperacillin/Tazobactam 3.375 GM in 0.9 % Sodium Chloride Mini Bag 100 ML IVPB SCH ×3 (02:03→16:13)
[2018-03-07] MEDS: *HR* OxyCODONE Immed Rel 5 MG TABLET PO PRN ×3 (03:56→17:54)
--- NOTE | 2018-03-07 04:02 | Internal Med History&Physical ---
Date of Encounter: 03/06/18 Time of Encounter: 23:30 Internal Medicine - H&P: HPI Chief complaint: fevres, chills, left leg redness Admitted From: Emergency Dept Plans for Post Hospital Care: Home History of present illness: Mr. Ballard is a 67 year old male patient who presents the ER tonight with complaints of fevers, chills, night sweats, redness and pain in his left leg, and falling 2 over lthe ast few days. He fell and injured his brown on his left leg on the bed frame a couple days ago. However, the fevers and chills started the day before. He quickly developed redness, pain, swelling of the leg concerning for cellulitis. He therefore came to ER where he was diagnosed cellulitis and was admitted to hospitalist service. Upon my assessment of the patient, he reiterates the above history. He denies any prior diabetic foot ulcers. He does have diabetes and has been on insulin for the last 4 years. He does suffer from neuropathy of his feet and has had some issues with falling lately. Of note, his x-ray of his left lower extremity suggested possible metallic foreign body in his foot. I questioned him about any prior history of any foreign body injury to his foot in the past. He denies any history. However, given his neuropathy, it is certainly not out of the question. Further history reveals that he had an AICD implanted just a couple weeks ago. He denies any redness, pain, or swelling in his chest wall. He denies any chest pain or shortness of breath. Past Med Surg Social Fam HX - Past Medical History Attestation: Yes The following information was validated with the patient. Source: patient, old records reviewed Medical history: atrial fibrillation, CHF, coronary artery disease, diabetes, hyperlipidemia, hypertension, myocardial infarction Additional medical history: 7 heart stent Psychiatric history: no psych history - Past Surgical History Surgical History: pacemaker/AICD Additional surgical history: 8 stents - Social History Smoking Status: Former smoker Smokeless Tobacco Status: No Alcohol use: none Drug use: none Current living situation: Home, With Family Activity Level: Independent ambulation Recent Out of Country Travel Within the Last 8 Weeks: No - Family History Mother Hx Family Cardiac Disorders: No Hx Family Respiratory Disorders: Yes Hx Family Cancer: No Hx Family GI Disorders: No Hx Family Endocrine Disorder: No Hx Family Neuromuscular Disorders: No Hx Family Neurologic Disorders: No Hx Family HEENT Disorders: No Hx Family Autoimmune Disorders: No Father Living Status: Hx Family Cardiac Disorders: Yes (cardiomegaly, chf, bbb) Hx Family Respiratory Disorders: No Hx Family Cancer: No Hx Family GI Disorders: No Hx Family Endocrine Disorder: No Hx Family Neuromuscular Disorders: No Hx Family Neurologic Disorders: No Hx Family HEENT Disorders: No Hx Family Autoimmune Disorders: No Internal Medicine - H&P: Meds Albuterol Sulfate [Proair Hfa] 1 - 2 puff IH BID PRN 08/06/17 [History] Aspirin Enteric Coated [Aspirin EC] 325 mg PO DAILY 08/06/17 [History] Atorvastatin Calcium 80 mg PO QPM 08/06/17 [History] Clopidogrel Bisulfate [Plavix] 75 mg PO DAILY 08/06/17 [History] Hydralazine HCl 100 mg PO TID 08/06/17 [History] Insulin Glargine [Lantus] 60 unit SQ DAILY 08/06/17 [History] Insulin LISPRO [HumaLOG] 6 units SQ TID 08/06/17 [History] Metoprolol Succinate [Toprol Xl] 75 mg PO BID 08/06/17 [History] Multivitamin-Min/Iron/FA/Vit K [Multi-Day Plus Minerals Tablet] 1 tab PO DAILY 08/06/17 [History] Nitroglycerin [Nitrostat] 0.4 mg SL Q5M PRN 08/06/17 [History] Rivaroxaban [Xarelto] 20 mg PO QPM 08/06/17 [History] Tamsulosin [Flomax] 0.4 mg PO DAILY 08/06/17 [History] Fluticasone/Vilanterol [Breo Ellipta 100-25 Mcg INH] 1 puff IH DAILY 01/10/18 [History] Sacubitril/Valsartan 97/103 mg [Entresto 97 mg-103 mg Tablet] 1 tab PO BID 01/10/18 [History] Furosemide [Lasix] 40 mg PO DAILY 30 Days #30 tablet 01/12/18 [Rx] clonazePAM [Klonopin] 0.25 mg PO BID 30 Days #60 tablet 01/12/18 [Rx] Allergy/AdvReac Type Severity Reaction Status Date / Time No Known Allergies Allergy Verified 01/09/18 09:33 - Constitutional Constitutional: chills, fatigue, fever(s), no weight loss - EENT Eyes: no blurry vision, no change in vision Ears: no ear pain, no tinnitus Nose, mouth and throat: no nasal congestion, no sore throat - Cardiovascular Cardiovascular ROS IM: no chest pain, no diaphoresis, no dyspnea, no dyspnea on exertion, no lightheadedness, no orthopnea, no syncope - Respiratory Respiratory: no cough, no hemoptysis, no chest congestion, no excessive phlegm production, no change in phlegm color - Gastrointestinal Gastrointestinal: no abdominal pain, no diarrhea, no hematemesis, no hematochezia, no melena, no nausea, no vomiting - Genitourinary Genitourinary ROS male: no dysuria, no flank pain, no hematuria - Musculoskeletal Musculoskeletal ROS IM: no back pain, no myalgias - Integumentary Integumentary IM: erythema (LLE just below knee to foot), non-healing lesions (scab wound on left brown) - Neurological Neurological ROS: numbness (feet), paresthesias (feet), no dizziness, no focal weakness, no frequent falls, no headache(s) - Psychiatric Psychiatric: no anxiety, no depression - Endocrine Endocrine IM: no cold intolerance, no heat intolerance, no polydipsia, no polyuria - Hematologic/Lymphatic Hematologic/Lymphatic: easy bruising - Allergic/Immunologic Allergic/Immunologic: no GI upset with certain foods - Constitutional Vitals: Temp Pulse Resp BP Pulse Ox 100.8 F H 98 18 102/51 95 03/07/18 03:51 03/07/18 03:51 03/07/18 03:51 03/07/18 03:51 03/07/18 03:51 General appearance: Present: cooperative, A&O X 3, pleasant, no acute distress, answers questions appropriately Exam: mildly ill appearing, non-toxic - Head Head exam: Present: atraumatic, normal inspection - Eye Eye exam: Present: EOMI, PERRL. Absent: scleral icterus Pupils: Present: normal accommodation - ENT ENT exam: Present: mucous membranes dry, normal exam, normal oropharynx - Neck Neck exam general surgery: Present: full ROM, supple. Absent: tenderness, nuchal rigidity, thyromegaly - Respiratory Respiratory exam: Present: CTAB. Absent: chest wall tenderness, rales, rhonchi, wheezes - Cardiovascular Cardiovascular exam: Present: distant heart sounds, +S1, +S2. Absent: diastolic murmur, systolic murmur Additional comments: palpable AICD in left upper chest without pain, redness, or swelling - GI/Abdominal GI/Abdominal exam: Present: normal bowel sounds, soft. Absent: hepatomegaly, mass, splenomegaly, tenderness - Extremities Exam Extremities exam: Present: full ROM, tenderness (LLE), warm (LLE), radial pulses palpable and symmetrical. Absent: calf tenderness Additional comments: intense redness/cellulitis of LLE from just below knee to foot. Scab wound on pretibial area. No obvious foot ulcers. - Back Exam Back exam: Absent: CVA tenderness (L), CVA tenderness (R) - Neurological Exam Neurological exam: Present: alert, CN II-XII intact, motor sensory deficit (decreased sensation in both feet -- chronic), oriented X3 - Psychiatric Psychiatric exam: Present: normal affect, normal mood - Skin Skin exam: Present: dry, erythema (LLE as above), intact, warm Internal Med - H&P Results - Labs CBC & Chem 7: 03/06/18 18:00 03/06/18 18:00 Labs: Short CBC 03/06/18 Range/Units 18:00 WBC 17.3 H (4.3-11.1) K/mcL Hgb 14.0 (12.9-16.9) g/dL Hct 42.9 (37.5-50.1) % Plt Count 133 L (140-400) K/mcL Neutrophils # 15.5 H (1.6-8.9) K/mcL BMP 03/06/18 18:00 Sodium 138 Potassium 3.6 Chloride 103 Carbon Dioxide 27 BUN 22 Creatinine 1.08 Glucose 215 H Calcium 8.8 - Impressions ITS Impressions Tibia/Fibula X-Ray 03/06/18 18:12 IMPRESSION: Soft tissue swelling surrounding the left lower extremity. No acute or focal bony abnormality. There is a fine linear probably metallic radiopaque foreign body which projects over the plantar soft tissues of the foot at the level of the calcaneus. Correlation for foreign body such is needle fragment is recommended. D/ / Valarie Ontiveros Cha, MD / Valarie Ontiveros Cha, MD Interpreting Provider: Valarie Ontiveros Cha, MD - Assessment and plan (1) Cellulitis Current Visit: Yes Status: Acute Assessment and plan: 1. Will place on IV Vancomycin and Zosyn. 2. Blood cultures collected in ER. 3. Will order CT LLE and consult podiatry given foreign body in foot. 4. Monitor clinically. 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 No acute process. 2. Monitor fluid balance and resume home meds as appropriate once verified. (3) Atrial fibrillation Current Visit: Yes Status: Chronic Assessment and plan: 1. On Xarelto per patient report -- resume once med list verified. 2. Continue home meds as appropriate. 3. Monitor on telemetry. Qualifiers: Atrial fibrillation type: chronic Qualified Code(s): I48.2 - Chronic atrial fibrillation (4) Diabetes mellitus, type 2 Current Visit: Yes Status: Chronic Assessment and plan: 1. Will hold oral home meds. 2. Will place on SSI and monitor glucose checks closely. 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 Resume home Xarelto dose once verified.
[2018-03-07 04:06] LABS: Basophils % 0.2 %; Eosinophils % 0.3 %; Hematocrit 35.3 % (37.5-50.1); Immature Granulocytes % 0.5 % (0-4); Lymphocytes # 0.9 K/mcL (0.6-4.6); Lymphocytes % 5.9 %; Mean Corpuscular HGB Conc 33.1 g/dL (31.6-35.5); Mean Corpuscular Hemoglobin 30.3 pg (28.0-33.3); Mean Corpuscular Volume 91.5 fL (83.0-100.0); Mean Platelet Volume 11.4 fL (9.4-12.4); Monocytes # 0.8 K/mcL (0.0-1.3); Monocytes % 5.3 %; Neutrophils # 13.6 K/mcL (1.6-8.9); Platelet Count 115 K/mcL (140-400); Red Blood Count 3.86 M/mcL (4.19-5.50); Red Cell Distribution Width 14.6 % (11.5-14.5); Segmented Neutrophils % 87.8 %
[2018-03-07 04:09] LABS: Hemoglobin 11.7 g/dL (12.9-16.9)
[2018-03-07 04:12] LABS: INR 1.5; Prothrombin Time 17.2 Seconds (9.4-12.1)
[2018-03-07 04:15] LABS: Activated Partial Thrombo Time 32.3 Seconds (26.0-36.0)
[2018-03-07 04:25] LABS: Alanine Aminotransferase 13 Units/L (7-52); Albumin 2.9 g/dL (3.5-5.7); Alkaline Phosphatase 66 Units/L (34-104); Aspartate Amino Transferase 18 Units/L (13-39); BUN/Creatinine Ratio 19 (6-26); Bilirubin,Total 0.4 mg/dL (0.3-1.0); Blood Urea Nitrogen 16 mg/dL (8-23); Calcium 8.2 mg/dL (8.6-10.3); Carbon Dioxide 23 mEq/L (23-29); Chloride 105 mEq/L (98-107); Globulin 2.9 g/dL (2.4-3.5); Glucose 187 mg/dL (70-105); Magnesium 1.6 mg/dL (1.6-2.6); Osmolality,Calculated 288 (280-300); Potassium 3.5 mEq/L (3.5-5.1); Sodium 136 mEq/L (136-145); Total Protein 5.8 g/dL (6.4-8.9); eGFR For Non-African Americans > 60 (> 60)
[2018-03-07] MEDS: Insulin LISPRO 300 UNITS/3 ML VIAL SQ SCH ×4 (07:13→23:03)
[2018-03-07] MEDS ORDERED: Nitroglycerin 0.4 MG TAB.SUBL SL PRN (10:44)
--- NOTE | 2018-03-07 10:54 | Internal Med Progress Note ---
Hospitalist Progress Note - Encounter Date of Encounter: 03/07/18 Time of Encounter: 08:50 - Subjective Interval History: Patient continues to have erythema and swelling in his left leg. Denies any prior foot injury and surgery. He reports that he had stepped on broken glass when he was 22 years old but has not had any issues since then. He denies any fevers or chills. - Exam Vitals: Temp Pulse Resp BP Pulse Ox 97.5 F L 84 16 113/61 91 03/07/18 07:03 03/07/18 07:03 03/07/18 07:03 03/07/18 07:03 03/07/18 07:03 Exam: General: Patient is alert, no acute distress, oriented x 3 ENT: Mucous membranes moist Respiratory: Good respiratory effort. Normal breath sounds. No wheezing or crackles. Cardiovascular: Regular rate and rhythm. s1 and s2 normal No clicks, rubs, gallops, or murmurs. No pedal edema Abdomen: Abdomen is soft, nontender. Bowel sounds are present Musculoskeletal: Spontaneously moving all extremities Skin: Erythema and swelling involving the left lower extremity extending from the foot to the left knee. Open scab wound noted just below the left knee. No open wounds noted on the plantar surface of the foot. Neuro: Alert oriented x 3 normal cranial nerves, no focal deficits - Assessment and Plan (1) Cellulitis Current Visit: Yes Status: Acute Assessment and Plan: Extensive cellulitis involving the entire left lower extremity below the knee circumferentially. Continue IV antibiotics. Limb elevation. Follow podiatry recommendations. Patient has a metallic foreign body in the left foot which appears to be chronic. No signs of abscess or gangrene. Moderate risk for complications. (2) Diabetes mellitus, type 2 Current Visit: Yes Status: Chronic Assessment and Plan: Continue current insulin regimen. Monitor blood sugars closely. Diabetic diet. (3) Atrial fibrillation Current Visit: Yes Status: Chronic Assessment and Plan: Patient on anticoagulation with Xarelto. Will continue. Rate controlled. 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 (5) DVT prophylaxis Current Visit: Yes Status: Acute Assessment and Plan: On Xarelto - Time Spent with Patient Total time spent is greater than 50% in coordination of care (as documented) at patient's floor/unit and/or counseling patient: Internal Medicine: Result - Labs CBC & Chem 7: 03/07/18 03:24 03/07/18 03:24 Labs: Short CBC 03/06/18 03/07/18 Range/Units 18:00 03:24 WBC 17.3 H 15.5 H (4.3-11.1) K/mcL Hgb 14.0 11.7 L D (12.9-16.9) g/dL Hct 42.9 35.3 L (37.5-50.1) % Plt Count 133 L 115 L (140-400) K/mcL Neutrophils # 15.5 H 13.6 H (1.6-8.9) K/mcL BMP 03/06/18 03/07/18 18:00 03:24 Sodium 138 136 Potassium 3.6 3.5 Chloride 103 105 Carbon Dioxide 27 23 BUN 22 16 Creatinine 1.08 0.84 Glucose 215 H 187 H Calcium 8.8 8.2 L Liver Function 03/07/18 Range/Units 03:24 Total Bilirubin 0.4 (0.3-1.0) mg/dL AST 18 (13-39) Units/L ALT 13 (7-52) Units/L Alkaline Phosphatase 66 (34-104) Units/L Albumin 2.9 L (3.5-5.7) g/dL - ABG Interpretation ABG results: PT/INR, D-dimer PT 17.2 Seconds (9.4-12.1) H 03/07/18 03:24 - Impressions Impressions Tibia/Fibula X-Ray 03/06/18 18:12 IMPRESSION: Soft tissue swelling surrounding the left lower extremity. No acute or focal bony abnormality. There is a fine linear probably metallic radiopaque foreign body which projects over the plantar soft tissues of the foot at the level of the calcaneus. Correlation for foreign body such is needle fragment is recommended. D/ / Valarie Ontiveros Cha, MD / Valarie Ontiveros Cha, MD Interpreting Provider: Valarie Ontiveros Cha, MD Lower Extremity CT 03/07/18 00:21 IMPRESSION: 1. Moderate diffuse cellulitis of the left lower extremity. 2. There is a 5 mm non metallic radiodensity or age-indeterminate retained foreign body in the soft tissues of the plantar/medial heel fat pad. This corresponds to the finding on the plain radiographs at the heel fat pad. 3. Degenerative changes as detailed above. 4. Small amount of fluid in the suprapatellar joint space. 5. Atherosclerotic calcification of the vasculature. 6. Os trigonum. Mild plantar calcaneal spur. 7. Remote healed fracture deformity of the distal left fibular metaphysis. 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
--- NOTE | 2018-03-07 12:23 | Podiatry Consult Note ---
Date of Encounter: 03/07/18 Time of Encounter: 13:00 Assessment and Plan (1) Cellulitis Current visit: Yes Status: Acute I had a thorough review with the patient regarding his condition, my findings, and recommendations for treatment. We discussed his imaging. Continue with IV broad-spectrum antibiotics. Gentamicin cream order to be applied to the a brasion. We discussed the cellulitis and infection present. Continue to monitor the area. No surgical intervention. No abscess identified for bodies likely old and been there for a while there is no entry site. There is no wound on the plantar foot or evidence that this infection started from there or abscess that needs to be drained. Bandage should be changed daily. Will likely need 3-4 days of IV antibiotics and that can change depending how he responds and currently it looks like the cellulitis has decreased from the line drawn on his leg. Will require outpatient follow up. Qualifiers: Site of cellulitis: extremity Site of cellulitis of extremity: lower extremity Laterality: left Qualified Code(s): L03.116 - Cellulitis of left lower limb History of Present Illness HPI: Mr. Ballard 67 year old diabetic male patient who came in to the ER with complaints of fevers, chills, night sweats, redness and pain in his left leg. patient relates falling 2 over the last few days. He fell and injured his brown on his left leg on the bed frame recently. He has a bandaid and loose scab over this area. However, the fevers and chills started the day before. He says he quickly developed redness, pain, swelling of the leg concerning for cellulitis. he denies knowing that he stepped on anything at home. Says that he is diabetic and does have neuropathy. he does not check his feet daily or have a foot doctor. Past Med Surg Social Fam HX - Past Medical History Medical history: atrial fibrillation, CHF, coronary artery disease, diabetes, hyperlipidemia, hypertension, myocardial infarction Additional medical history: 7 heart stent Psychiatric history: no psych history - Past Surgical History Surgical History: pacemaker/AICD Additional surgical history: 8 stents - Social History Smoking Status: Former smoker Smokeless Tobacco Status: No Alcohol use: none Drug use: none - Family History Mother Hx Family Cardiac Disorders: No Hx Family Respiratory Disorders: Yes Hx Family Cancer: No Hx Family GI Disorders: No Hx Family Endocrine Disorder: No Hx Family Neuromuscular Disorders: No Hx Family Neurologic Disorders: No Hx Family HEENT Disorders: No Hx Family Autoimmune Disorders: No Father Living Status: Hx Family Cardiac Disorders: Yes (cardiomegaly, chf, bbb) Hx Family Respiratory Disorders: No Hx Family Cancer: No Hx Family GI Disorders: No Hx Family Endocrine Disorder: No Hx Family Neuromuscular Disorders: No Hx Family Neurologic Disorders: No Hx Family HEENT Disorders: No Hx Family Autoimmune Disorders: No Medications and Allergies Albuterol Sulfate [Proair Hfa] 1 - 2 puff IH BID PRN 08/06/17 [History] Aspirin Enteric Coated [Aspirin EC] 325 mg PO DAILY 08/06/17 [History] Atorvastatin Calcium 80 mg PO QPM 08/06/17 [History] Clopidogrel Bisulfate [Plavix] 75 mg PO DAILY 08/06/17 [History] Hydralazine HCl 100 mg PO TID 08/06/17 [History] Insulin Glargine [Lantus] 60 unit SQ DAILY 08/06/17 [History] Insulin LISPRO [HumaLOG] 6 - 10 units SQ TID 08/06/17 [History] Metoprolol Succinate [Toprol Xl] 75 mg PO BID 08/06/17 [History] Multivitamin-Min/Iron/FA/Vit K [Multi-Day Plus Minerals Tablet] 1 tab PO DAILY 08/06/17 [History] Nitroglycerin [Nitrostat] 0.4 mg SL Q5M PRN 08/06/17 [History] Rivaroxaban [Xarelto] 20 mg PO QPM 08/06/17 [History] Tamsulosin [Flomax] 0.4 mg PO DAILY 08/06/17 [History] Fluticasone/Vilanterol [Breo Ellipta 100-25 Mcg INH] 1 puff IH DAILY 01/10/18 [History] Sacubitril/Valsartan 97/103 mg [Entresto 97 mg-103 mg Tablet] 1 tab PO BID 01/10/18 [History] Escitalopram [Lexapro] 10 mg PO DAILY 03/07/18 [History] Furosemide [Lasix] 40 mg PO BID 03/07/18 [History] Allergy/AdvReac Type Severity Reaction Status Date / Time No Known Allergies Allergy Verified 03/07/18 11:21 All Systems Reviewed: The remainder of the systems were reviewed and are negative - Constitutional Constitutional: fever(s), frequent falls - Cardiovascular Cardiovascular: no chest pain, no dyspnea - Respiratory Respiratory: no cough - Musculoskeletal Musculoskeletal: numbness Physical Exam - Constitutional Vitals: Temp Pulse Resp BP Pulse Ox 98.6 F 82 16 105/63 90 03/07/18 11:40 03/07/18 11:40 03/07/18 11:40 03/07/18 11:40 03/07/18 11:40 - Ankle & Foot Exam: well developed and nourished male in no acute distress Vasc: Capillary refill time intact all digits of the left foot. moderate edema of the left leg. Derm and Musc: Cellulitis from the left ankle to mid shaft the tibia. This appears to have been decreased from the previous line marked on the patient's leg. There is a superficial abrasion of the anterior tibia proximally. Loose scab was removed. There was no purulent drainage. No fluctuance. No pain with palpation of the leg. There is increased temperature of the left leg compared to the right. no entry site plantar foot to indicate this is a recent foreign body. Neur:Absent protective sensation. xray-foreign body plantar foot CT-no abscess identified. 1. Moderate diffuse cellulitis of the left lower extremity. 2. There is a 5 mm non metallic radiodensity or age-indeterminate retained foreign body in the soft tissues of the plantar/medial heel fat pad. This corresponds to the finding on the plain radiographs at the heel fat pad. 3. Degenerative changes as detailed above. 4. Small amount of fluid in the suprapatellar joint space. 5. Atherosclerotic calcification of the vasculature. 6. Os trigonum. Mild plantar calcaneal spur. 7. Remote healed fracture deformity of the distal left fibular metaphysis. Results - Labs Result Diagrams: 03/07/18 03:24 03/07/18 03:24 Labs: Abnormal lab results WBC 15.5 K/mcL (4.3-11.1) H 03/07/18 03:24 RBC 3.86 M/mcL (4.19-5.50) L 03/07/18 03:24 Hgb 11.7 g/dL (12.9-16.9) L D 03/07/18 03:24 Hct 35.3 % (37.5-50.1) L 03/07/18 03:24 RDW 14.6 % (11.5-14.5) H 03/07/18 03:24 Plt Count 115 K/mcL (140-400) L 03/07/18 03:24 Neutrophils # 13.6 K/mcL (1.6-8.9) H 03/07/18 03:24 PT 17.2 Seconds (9.4-12.1) H 03/07/18 03:24 Glucose 187 mg/dL (70-105) H 03/07/18 03:24 POC Glucose 130 mg/dL (70-99) H 03/06/18 21:52 Calcium 8.2 mg/dL (8.6-10.3) L 03/07/18 03:24 C-Reactive Protein 204 mg/L (Less than 10) H 03/06/18 18:00 Serum Total Protein 5.8 g/dL (6.4-8.9) L 03/07/18 03:24 Albumin 2.9 g/dL (3.5-5.7) L 03/07/18 03:24 Albumin/Globulin Ratio 1.0 (1.1-2.2) L 03/07/18 03:24 H & H 03/06/18 03/07/18 Range/Units 18:00 03:24 Hgb 14.0 11.7 L D (12.9-16.9) g/dL Hct 42.9 35.3 L (37.5-50.1) % All other labs normal. Consult Discharge Plan - Plan Referrals: Kenneth Cabral MD [Primary Care Provider] - (Follow up has been reque sted)
[2018-03-07] MEDS: hydrALAZINE 25 MG TABLET PO SCH ×2 (13:21→23:09)
[2018-03-07] MEDS: Furosemide 40 MG TABLET PO SCH (16:12)
[2018-03-07] MEDS ORDERED: *HR* Rivaroxaban 10 MG TABLET PO SCH (17:00)
[2018-03-07] MEDS: SACUBITRIL/VALSARTAN 97/103 MG TABLET PO SCH (23:02)
[2018-03-07] MEDS: Metoprolol XL (24 HR) Succ 25 MG TAB.ER.24H PO SCH (23:10)
[2018-03-08] MEDS: *HR* OxyCODONE Immed Rel 5 MG TABLET PO PRN ×3 (00:10→17:52)
[2018-03-08] MEDS: Piperacillin/Tazobactam 3.375 GM in 0.9 % Sodium Chloride Mini Bag 100 ML IVPB SCH ×3 (00:14→17:50)
[2018-03-08] MEDS: Furosemide 40 MG TABLET PO SCH ×2 (08:43→17:50)
[2018-03-08] MEDS: Metoprolol XL (24 HR) Succ 25 MG TAB.ER.24H PO SCH ×2 (08:43→20:56)
[2018-03-08] MEDS: SACUBITRIL/VALSARTAN 97/103 MG TABLET PO SCH ×2 (08:43→20:55)
[2018-03-08] MEDS: Aspirin Enteric Coated 325 MG Tablet PO SCH (08:43)
[2018-03-08] MEDS: Multivit/Ca/Min/Fe/FA 1 TAB TABLET PO SCH (08:43)
[2018-03-08] MEDS: Insulin LISPRO 300 UNITS/3 ML VIAL SQ SCH ×4 (08:44→20:55)
[2018-03-08] MEDS: Gentamicin Oint 15 GM TUBE TP SCH (08:44)
[2018-03-08] MEDS: hydrALAZINE 25 MG TABLET PO SCH ×3 (08:44→20:55)
[2018-03-08] MEDS: (Fluticasone/Vilanterol [Breo Ellipta 100-25 Mcg Inh] IH SCH (08:45)
[2018-03-08] MEDS ORDERED: Isovue-370 500 ML BOTTLE IVP ONE (11:11)
--- NOTE | 2018-03-08 11:22 | Internal Med Progress Note ---
Hospitalist Progress Note - Encounter Date of Encounter: 03/08/18 Time of Encounter: 09:10 - Subjective Interval History: Patient complains of worsening pain and erythema in his left lower extremity. He reports that it is darker in color now. He denies any decreased sensation in his left lower extremity. He has not had any fevers or chills. He reports that he had an episode of epistaxis last night that stopped spontaneously. - Exam Vitals: Temp Pulse Resp BP Pulse Ox 98.4 F 95 16 119/76 98 03/08/18 07:46 03/08/18 07:46 03/08/18 07:46 03/08/18 07:46 03/08/18 07:46 Exam: General: Patient is alert, no acute distress, oriented x 3 ENT: Mucous membranes moist Respiratory: Good respiratory effort. Normal breath sounds. No wheezing or crackles. Cardiovascular: Regular rate and rhythm. s1 and s2 normal No clicks, rubs, gallops, or murmurs. No pedal edema Abdomen: Abdomen is soft, nontender. Bowel sounds are present Musculoskeletal: Spontaneously moving all extremities Skin: Erythema and ecchymosis noted on the left lower extremity. Patient does have good pedal pulses. Left leg and foot are warm to touch. No signs of gangrene. Neuro: Alert oriented x 3 normal cranial nerves, no focal deficits - Assessment and Plan (1) Cellulitis Current Visit: Yes Status: Acute Assessment and Plan: Patient may have underlying hematoma due to his chronic use of his Xarelto. No signs of arterial ischemia. We will obtain CT angiogram of the left lower extremity to confirm. Continue with limb elevation and IV antibiotics. (2) Diabetes mellitus, type 2 Current Visit: Yes Status: Chronic Assessment and Plan: Continue current insulin regimen and diabetic diet (3) Atrial fibrillation Current Visit: Yes Status: Chronic Assessment and Plan: Rate controlled. Patient on Xarelto. 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 Continue oral Lasix (5) DVT prophylaxis Current Visit: Yes Status: Acute Assessment and Plan: Patient is on Xarelto - Time Spent with Patient Total time spent is greater than 50% in coordination of care (as documented) at patient's floor/unit and/or counseling patient: Internal Medicine: Result - Labs CBC & Chem 7: 03/07/18 03:24 03/07/18 03:24 - ABG Interpretation ABG results: PT/INR, D-dimer PT 17.2 Seconds (9.4-12.1) H 03/07/18 03:24 - Impressions Impressions Lower Extremity CT 03/07/18 00:21 IMPRESSION: 1. Moderate diffuse cellulitis of the left lower extremity. 2. There is a 5 mm non metallic radiodensity or age-indeterminate retained foreign body in the soft tissues of the plantar/medial heel fat pad. This corresponds to the finding on the plain radiographs at the heel fat pad. 3. Degenerative changes as detailed above. 4. Small amount of fluid in the suprapatellar joint space. 5. Atherosclerotic calcification of the vasculature. 6. Os trigonum. Mild plantar calcaneal spur. 7. Remote healed fracture deformity of the distal left fibular metaphysis. D/ / 03/07/2018 10:35:48 Jack Naranjo MD / keisha Interpreting Provider: Jack Naranjo MD Consult Discharge Plan - Plan Referrals: Kenneth Cabral MD [Primary Care Provider] - (Follow up has been requested) (1) Cellulitis Qualifiers: Site of cellulitis: extremity Site of cellulitis of extremity: lower extremity Laterality: left Qualified Code(s): L03.116 - Cellulitis of left lower limb (2) Diabetes mellitus, type 2 Qualifiers: Diabetes mellitus long-term insulin use: with long term care pharmacist use Diabetes mellitus complication status: with circulatory complication Diabetes mellitus complication detail: with other circulatory complications Qualified Code(s): E11.59 - Type 2 diabetes mellitus with other circulatory complications; Z79.4 - oysterman (current) use of insulin (3) Atrial fibrillation Qualifiers: Atrial fibrillation type: chronic Qualified Code(s): I48.2 - Chronic atrial fibrillation
[2018-03-08 12:36] LABS: Basophils # 0.1 K/mcL (0.0-0.2); Basophils % 0.7 %; Eosinophils # 0.2 K/mcL (0.0-0.6); Eosinophils % 1.2 %; Hematocrit 36.2 % (37.5-50.1); Hemoglobin 11.9 g/dL (12.9-16.9); Immature Granulocytes % 0.5 % (0-4); Lymphocytes # 1.2 K/mcL (0.6-4.6); Lymphocytes % 8.6 %; Mean Corpuscular HGB Conc 32.9 g/dL (31.6-35.5); Mean Corpuscular Hemoglobin 30.2 pg (28.0-33.3); Mean Corpuscular Volume 91.9 fL (83.0-100.0); Mean Platelet Volume 11.4 fL (9.4-12.4); Monocytes # 0.9 K/mcL (0.0-1.3); Monocytes % 6.9 %; Platelet Count 130 K/mcL (140-400); Red Blood Count 3.94 M/mcL (4.19-5.50); Red Cell Distribution Width 14.4 % (11.5-14.5); Segmented Neutrophils % 82.1 %
[2018-03-09] MEDS: *HR* OxyCODONE Immed Rel 5 MG TABLET PO PRN ×4 (00:22→21:14)
[2018-03-09] MEDS: Piperacillin/Tazobactam 3.375 GM in 0.9 % Sodium Chloride Mini Bag 100 ML IVPB SCH ×2 (00:23→08:16)
[2018-03-09 06:31] LABS: Basophils # 0.1 K/mcL (0.0-0.2); Basophils % 0.7 %; Eosinophils # 0.4 K/mcL (0.0-0.6); Eosinophils % 3.9 %; Hematocrit 34.2 % (37.5-50.1); Hemoglobin 11.2 g/dL (12.9-16.9); Immature Granulocytes % 0.7 % (0-4); Lymphocytes # 1.4 K/mcL (0.6-4.6); Lymphocytes % 12.2 %; Mean Corpuscular HGB Conc 32.7 g/dL (31.6-35.5); Mean Corpuscular Hemoglobin 30.2 pg (28.0-33.3); Mean Corpuscular Volume 92.2 fL (83.0-100.0); Mean Platelet Volume 11.9 fL (9.4-12.4); Monocytes # 0.9 K/mcL (0.0-1.3); Neutrophils # 8.3 K/mcL (1.6-8.9); Platelet Count 128 K/mcL (140-400); Red Blood Count 3.71 M/mcL (4.19-5.50); Red Cell Distribution Width 14.4 % (11.5-14.5); Segmented Neutrophils % 74.5 %
[2018-03-09 06:53] LABS: BUN/Creatinine Ratio 13 (6-26); Blood Urea Nitrogen 12 mg/dL (8-23); Calcium 8.1 mg/dL (8.6-10.3); Carbon Dioxide 27 mEq/L (23-29); Chloride 103 mEq/L (98-107); Glucose 117 mg/dL (70-105); Osmolality,Calculated 285 (280-300); Potassium 3.3 mEq/L (3.5-5.1); Sodium 137 mEq/L (136-145); eGFR For Non-African Americans > 60 (> 60)
[2018-03-09] MEDS: SACUBITRIL/VALSARTAN 97/103 MG TABLET PO SCH ×2 (08:16→21:14)
[2018-03-09] MEDS: Aspirin Enteric Coated 325 MG Tablet PO SCH (08:17)
[2018-03-09] MEDS: hydrALAZINE 25 MG TABLET PO SCH ×3 (08:17→21:13)
[2018-03-09] MEDS: Metoprolol XL (24 HR) Succ 25 MG TAB.ER.24H PO SCH ×2 (08:17→21:14)
[2018-03-09] MEDS: Furosemide 40 MG TABLET PO SCH ×2 (08:17→17:20)
[2018-03-09] MEDS: Multivit/Ca/Min/Fe/FA 1 TAB TABLET PO SCH (08:17)
[2018-03-09] MEDS: Insulin LISPRO 300 UNITS/3 ML VIAL SQ SCH ×4 (08:18→21:14)
[2018-03-09] MEDS: Gentamicin Oint 15 GM TUBE TP SCH (08:18)
[2018-03-09] MEDS: (Fluticasone/Vilanterol [Breo Ellipta 100-25 Mcg Inh] IH SCH (08:18)
--- NOTE | 2018-03-09 08:48 | Internal Med Progress Note ---
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 Current Visit: Yes Status: Chronic (5) DVT prophylaxis Current Visit: Yes Status: Acute - Time Spent with Patient Total time spent is greater than 50% in coordination of care (as documented) at patient's floor/unit and/or counseling patient: Internal Medicine: Result - Labs CBC & Chem 7: 03/09/18 05:18 03/09/18 05:18 Labs: Short CBC 03/09/18 Range/Units 05:18 WBC 11.2 H (4.3-11.1) K/mcL Hgb 11.2 L (12.9-16.9) g/dL Hct 34.2 L (37.5-50.1) % Plt Count 128 L (140-400) K/mcL Neutrophils # 8.3 (1.6-8.9) K/mcL BMP 03/09/18 05:18 Sodium 137 Potassium 3.3 L Chloride 103 Carbon Dioxide 27 BUN 12 Creatinine 0.92 Glucose 117 H Calcium 8.1 L - ABG Interpretation ABG results: PT/INR, D-dimer PT 17.2 Seconds (9.4-12.1) H 03/07/18 03:24 - Impressions Impressions Lower Extremity CTA 03/08/18 11:11 IMPRESSION: 1. Diffuse subcutaneous fatty stranding from the left knee to the ankle could be due to cellulitis, edema, or contusion. No organized fluid collection or hematoma. 2. Three-vessel runoff to the left foot. Atherosclerotic disease with areas of mild narrowing. D/ / Ramy Singer MD / Ramy Singer MD Interpreting Provider: Ramy Singer MD Consult Discharge Plan - Plan Referrals: Kenneth Cabral MD [Primary Care Provider] - 03/18/18 10:10 am () - Attending Attestation I saw evaluated and examined this patient and my medical decision-making was reviewed with the Resident Physician, Kenneth Witt. I agree with the documented findings, disposition and treatment plan as described except to any changes set forth below. We independently had [id number] contact with the patient. Patient doing better today. Pain in his left lower extremity improving. He does have increased swelling in his left foot. Denies any fevers or chills overnight. General: Patient is alert, no acute distress, oriented x 3 ENT: Mucous membranes moist Respiratory: Good respiratory effort. Normal breath sounds. No wheezing or crackles. Cardiovascular: Regular rate and rhythm. s1 and s2 normal No clicks, rubs, gallops, or murmurs. Abdomen: Abdomen is soft, nontender. Bowel sounds are present Musculoskeletal: Spontaneously moving all extremities . Ecchymosis more prominent on the anterior surface of the left lower extremity. Size of erythema improving within the margins of initially marked cellulitis. Left foot is edematous. Patient has good pedal pulses Skin: warm, dry, intact. Neuro: Alert oriented x 3 normal cranial nerves, no focal deficits Left lower extremity cellulitis/contusion: Continue supportive care. Hold Xarelto for another day. May resume tomorrow. Continue IV antibiotics. Limb elevation. WBC count is improving. We will transition to oral antibiotics. Diabetes mellitus type 2: Blood sugars are fairly controlled. Continue current insulin regimen. Will add long-acting insulin. Chronic biventricular heart failure: Not in acute exacerbation. Continue oral Lasix. Patient does have worsening left foot edema. Likely due to antecedent cellulitis. Will treat with IV Lasix. Atrial fibrillation: Remains rate controlled. Continue metoprolol. Holding anticoagulation due to contusion involving the left lower extremity. May resume tomorrow. <Kenneth Witt - Last Filed: 03/09/18 14:32> Hospitalist Progress Note - Encounter Date of Encounter: 03/09/18 Time of Encounter: 08:48 - Subjective Interval History: Patient was seen and examined at bedside this morning. He states that overall he is feeling very well and is near his baseline. He states his lower extremity pain is nearing his baseline and he does struggle with this chronically. He denies any symptoms of fevers, chills, chest pain, shortness of breath. No overnight events. - Exam Vitals: Temp Pulse Resp BP Pulse Ox 98.2 F 82 14 109/71 92 03/09/18 07:33 03/09/18 07:33 03/09/18 07:33 03/09/18 07:33 03/09/18 08:15 Exam: Gen.: Vitals noted. No acute distress. AAOx3, sitting up at bedside HEENT: PERRL/EOMI, oropharynx clear, Normocephalic, atraumatic, MMM Cardiac: RRR, no murmur, +S1/S2, 2+ BLE edema Pulmonary: CTA bilaterally, no wheezes, rales or rhonchi, equal chest expansion, unlabored breathing Abdomen: soft, nontender, BS noted, no guarding, no palpable HSM, DOMINIQUE drain in place with serous output Skin: warm and dry, some ecchymosis, minimal erythema of bilateral LE MSK: ROM not assessed, no joint swelling noted, gait no assessed while in bed. Non tender calf or clubbing Neuro: A&Ox3, moves all extremities, no focal deficits, sensation intact Psych: Appropriate mood and behavior, AOx3 - Assessment and Plan (1) Cellulitis Current Visit: Yes Status: Acute Assessment and Plan: - Evidence of cellulitis on admission with bilateral erythema and swelling and tenderness - Evidence of fall prior to admission against a bed frame - Known diabetic with diabetic neuropathy bilaterally - Previously on 3 days of vancomycin and Zosyn - Blood cultures obtained on admission, negative for growth on 03/06/18 - X-ray of left leg social tissue swelling with no bony abnormality. Fine linear possibly metallic radiopaque foreign body also identified. - Left Lower extremity CT shows moderate diffuse cellulitis, 5 mm nonmetallic radiodensity/foreign body. - Left CTA of lower extremity shows diffuse subcutaneous fatty stranding from the left knee to ankle which may be related to cellulitis, edema, contusion. No evidence of hematoma. No evidence of ischemia. - Patient is clinically improving on physical exam and we will de-escalate antibiotics today to Bactrim, day 3/7 depending on clinical picture. Continue gentamicin cream - Some evidence of edema today and will give one-time dose of Lasix IV in addition to home Lasix - No evidence of hematoma with adequate circulation, will restart home Xarelto upon discharge - Podiatry is following, appreciate recommendations (2) Hypokalemia Current Visit: Yes Status: Acute Assessment and Plan: - Potassium 3.3 on a.m. labs - We will replenish with 40 mEq this morning and continue to monitor daily labs (3) Hypertension Current Visit: Yes Status: Chronic Assessment and Plan: - We will controlled with most recent reading of 110/60 - Continue home medications as well as when necessary hydralazine (4) Diabetes mellitus, type 2 Current Visit: Yes Status: Chronic Assessment and Plan: - Known diabetic, insulin-dependent - Complications of heart disease as well as diabetic neuropathy - Blood sugars have been well controlled with most recent reading of 117 - Most recent hemoglobin A1c of 6.2% on 01/20/18 - We will continue sliding scale insulin, ADA diet (5) Coronary artery disease Current Visit: Yes Status: Chronic Assessment and Plan: - No complaints of chest pain - Continue home meds (6) Atrial fibrillation Current Visit: Yes Status: Chronic Assessment and Plan: - Known history of atrial fibrillation - Anticoagulated home on Xarelto - Currently rate controlled with most recent heart rate is 76 - CHADVASC 6 - Continue home beta lucy, continue anticoagulation upon discharge (7) 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 Current Visit: Yes Status: Chronic Assessment and Plan: - Does not appear to be in acute exacerbation - Mildly edematous on exam today, will continue Lasix with additional one-time dose this morning - Continue home meds (8) S/P ICD (internal cardiac defibrillator) procedure Current Visit: Yes Status: Chronic Assessment and Plan: - As above - Secondary to known systolic heart failure (9) DVT prophylaxis Current Visit: Yes Status: Acute Assessment and Plan: - Currently holding DVT prophylaxis, will restart xarelto - Time Spent with Patient Total time spent is greater than 50% in coordination of care (as documented) at patient's floor/unit and/or counseling patient: Internal Medicine: Result - Labs CBC & Chem 7: 03/09/18 05:18 03/09/18 05:18 Labs: Short CBC 03/08/18 03/09/18 Range/Units 12:18 05:18 WBC 13.5 H 11.2 H (4.3-11.1) K/mcL Hgb 11.9 L 11.2 L (12.9-16.9) g/dL Hct 36.2 L 34.2 L (37.5-50.1) % Plt Count 130 L 128 L (140-400) K/mcL Neutrophils # 11.0 H 8.3 (1.6-8.9) K/mcL BMP 03/09/18 05:18 Sodium 137 Potassium 3.3 L Chloride 103 Carbon Dioxide 27 BUN 12 Creatinine 0.92 Glucose 117 H Calcium 8.1 L - ABG Interpretation ABG results: PT/INR, D-dimer PT 17.2 Seconds (9.4-12.1) H 03/07/18 03:24 - Impressions Impressions Lower Extremity CTA 03/08/18 11:11 IMPRESSION: 1. Diffuse subcutaneous fatty stranding from the left knee to the ankle could be due to cellulitis, edema, or contusion. No organized fluid collection or hematoma. 2. Three-vessel runoff to the left foot. Atherosclerotic disease with areas of mild narrowing. 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 Diabetes mellitus complication status: with circulatory complication Diabetes mellitus complication detail: with other circulatory complications Qualified Code(s): E11.59 - Type 2 diabetes mellitus with other circulatory complications; Z79.4 - lobsterman (current) use of insulin (3) Atrial fibrillation Qualifiers: Atrial fibrillation type: chronic Qualified Code(s): I48.2 - Chronic atrial fibrillation <Kenneth Witt - Last Filed: 03/09/18 14:32> (1) Cellulitis Qualifiers: Site of cellulitis: extremity Site of cellulitis of extremity: lower extremity Laterality: left Qualified Code(s): L03.116 - Cellulitis of left lower limb (3) Hypertension Qualifiers: Hypertension type: essential hypertension Qualified Code(s): I10 - Essential (primary) hypertension (4) Diabetes mellitus, type 2 Qualifiers: Diabetes mellitus local company intermodal truck driver insulin use: with local company intermodal truck driver use Diabetes mellitus complication status: with circulatory complication Diabetes mellitus complication detail: with other circulatory complications Qualified Code(s): E11.59 - Type 2 diabetes mellitus with other circulatory complications; Z79.4 - intermediate (current) use of insulin (5) Coronary artery disease Qualifiers: Coronary Disease-Associated Artery/Lesion type: [place] artery [place] vs. transplanted heart: [place] heart Associated angina: without angina Qualified Code(s): I25.10 - Atherosclerotic heart disease of [place] coronary artery without angina pectoris (6) Atrial fibrillation Qualifiers: Atrial fibrillation type: chronic Qualified Code(s): I48.2 - Chronic atrial fibrillation
[2018-03-09] MEDS ORDERED: Furosemide 40 MG/4 ML VIAL IVP ONE (11:40)
--- NOTE | 2018-03-09 16:31 | Podiatry Progress Note ---
Date of Encounter: 03/09/18 Time of Encounter: 12:00 - Assessment and Plan (1) Cellulitis Status: Acute ASSESSMENT Cellulitis to the LLE PLAN: Assessed today at bedside Responding to antibiotic therapy and was switched from IV to oral antibiotic therapy today Patient was taken to CTA yesterday which was negative for abnormality other than atherosclerosis with runoff as documented below Patient has new dependent pedal edema noted to left foot- encouraged to elevate at all times and do not dangle, considered application of MICHOACANO wrap however patient has known CHF, hospitalist services increased lasix dose, at this time will hold off on compression Continue application of gent ointment to wound of left leg- likely entry point keep clean and dry will follow outpatient Lower Extremity CTA 03/08/18 11:11 IMPRESSION: 1. Diffuse subcutaneous fatty stranding from the left knee to the ankle could be due to cellulitis, edema, or contusion. No organized fluid collection or hematoma. 2. Three-vessel runoff to the left foot. Atherosclerotic disease with areas of mild narrowing. D/ / Ramy Singer MD / Ramy Singer MD Interpreting Provider: Ramy Singer MD Qualifiers: Site of cellulitis: extremity Site of cellulitis of extremity: lower extremity Laterality: left Qualified Code(s): L03.116 - Cellulitis of left lower limb Subjective Interval history: Following patient in regards to a LLE abrasion with associated cellulitis. Patient reports that overall he feels slight improvement today and decreased pain. Patient received 3 days of IV antibiotics and was switched to oral bactrim today. Patient states that due to the appearance of dark purple color to his leg last night he was sent for a test. States he was told it looked ok. Patient states that the pain to his leg has decreased more toward his baseline. Patient denies any known fevers, chills, n/v or fls. Objective - Vital Signs Vital Signs: Vital Signs Temp Pulse Resp BP Pulse Ox 03/09/18 16:12 98.5 F 86 15 111/69 90 03/09/18 15:21 100/61 03/09/18 11:22 98.3 F 76 14 110/60 95 01/28/19 08:15 92 03/09/18 07:33 98.2 F 82 14 109/71 92 03/09/18 02:18 98.3 F 77 16 107/71 91 03/08/18 23:46 98.6 F 83 16 126/67 92 03/08/18 20:54 84 121/76 03/08/18 20:38 82 108/69 03/08/18 19:07 98.8 F 78 16 100/52 92 Intake and Output 03/09/18 03/09/18 03/09/18 07:59 15:59 23:59 Intake Total 350 / 350 1190 / 1190 Output Total 300 / 300 Balance 350 / 350 1190 / 1190 -300 / -300 Intake: IV Fluids 350 / 350 350 / 350 Zosyn 3.375 GM In 0.9 % Sodium 100 / 100 100 / 100 Chloride (Mini-Bag +) 100 ML @ 25 mls/hr IVPB Q8HR [facility]HA Rx#: [id number] Vancocin 1,500 MG In 0.9 % 250 / 250 250 / 250 Sodium Chloride 250 ML @ 166. 667 mls/hr IVPB Q12H RADHA Rx#: [id number] Oral 840 / 840 Output: Urine 300 / 300 Other: Meal Lunch Percent of Meal Consumed 75% # Voids 1 400 Weight 131.8 kg Blood Glucose* 116 180 99 Patient Weight 03/09/18 23:59 Weight 131.8 kg - Exam Exam: CONSITUTIONAL: awake alert and oriented VASCULAR: Pulses palpable dp/pt, warm toes to tibia, cap refill <3 seconds- pitting +2/4 to LLE. NEUROLOGICAL: Minimal sensation to light or moderate touch, patient known to have neuropathic changes MUSCULOSKELETAL: Muscle strength 5/5 and equal bilaterally- no limited rom. No flucutuance to joint lines LLE Pitting edema, with associated warmth and erythema consistent with cellulitis which has regressed from original marked line. There is prominent ecchymosis to the anterior aspect of the LLE which was the flag for the CTA which was negative for abnormality. There is increase in pitting edema to left foot, hospitalist notes that he was given an extra dose of lasix today. Abrasion remains just below tibia tuberosity , 3cmx2.5cm with 100% fibrous tissue to base. - Lab Result Diagrams: 03/10/18 04:08 03/10/18 04:08 Labs: Abnormal lab results WBC 11.2 K/mcL (4.3-11.1) H 03/09/18 05:18 RBC 3.71 M/mcL (4.19-5.50) L 03/09/18 05:18 Hgb 11.2 g/dL (12.9-16.9) L 03/09/18 05:18 Hct 34.2 % (37.5-50.1) L 03/09/18 05:18 Plt Count 128 K/mcL (140-400) L 03/09/18 05:18 PT 17.2 Seconds (9.4-12.1) H 03/07/18 03:24 Potassium 3.3 mEq/L (3.5-5.1) L 03/09/18 05:18 Glucose 117 mg/dL (70-105) H 03/09/18 05:18 POC Glucose 180 mg/dL (70-99) H 03/09/18 11:28 Calcium 8.1 mg/dL (8.6-10.3) L 03/09/18 05:18 C-Reactive Protein 204 mg/L (Less than 10) H 03/06/18 18:00 Serum Total Protein 5.8 g/dL (6.4-8.9) L 03/07/18 03:24 Albumin 2.9 g/dL (3.5-5.7) L 03/07/18 03:24 Albumin/Globulin Ratio 1.0 (1.1-2.2) L 03/07/18 03:24 Vancomycin Trough 11 mcg/mL (5-10) H 03/08/18 12:18 Consult Discharge Plan - Plan Instructions: Sulfamethoxazole/Trimethoprim (By mouth), Oxycodone, Rapid Release (By mouth), Cellulitis (DC), Cellulitis (GEN) Referrals: Von Chua DPM [Partnered Physician] - (Your appointment has been requested. Our offices will call with an appointment time and date.) Kenneth Cabral MD [Primary Care Provider] - 03/18/18 10:10 am () Prescriptions: RX: OxyCODONE Immed Rel [Roxicodone 5 MG] 10 mg PO Q6HR PRN 2 Days #16 tablet PRN Reason: Severe Pain RX: Sulfamethoxazole/Trimeth DS [Bactrim Ds] 1 each PO BID 6 Days #12 tablet
[2018-03-09] MEDS ORDERED: Insulin DETEMIR 100 UNIT/ML X5UNITS SQ SCH (21:00)
[2018-03-09] MEDS: Sulfamethoxazole/Trimeth DS 1 EACH TABLET PO SCH (21:14)
[2018-03-10] MEDS: *HR* OxyCODONE Immed Rel 5 MG TABLET PO PRN (04:57)
[2018-03-10 05:09] LABS: Basophils # 0.1 K/mcL (0.0-0.2); Eosinophils # 0.5 K/mcL (0.0-0.6); Eosinophils % 4.6 %; Hematocrit 34.9 % (37.5-50.1); Hemoglobin 11.5 g/dL (12.9-16.9); Immature Granulocytes % 0.7 % (0-4); Lymphocytes # 1.3 K/mcL (0.6-4.6); Lymphocytes % 13.3 %; Mean Corpuscular Hemoglobin 29.9 pg (28.0-33.3); Mean Corpuscular Volume 90.9 fL (83.0-100.0); Mean Platelet Volume 11.7 fL (9.4-12.4); Monocytes # 0.8 K/mcL (0.0-1.3); Monocytes % 8.3 %; Neutrophils # 7.2 K/mcL (1.6-8.9); Platelet Count 161 K/mcL (140-400); Red Blood Count 3.84 M/mcL (4.19-5.50); Red Cell Distribution Width 14.4 % (11.5-14.5); Segmented Neutrophils % 72.1 %
[2018-03-10 05:29] LABS: BUN/Creatinine Ratio 13 (6-26); Blood Urea Nitrogen 11 mg/dL (8-23); Calcium 8.5 mg/dL (8.6-10.3); Carbon Dioxide 28 mEq/L (23-29); Chloride 102 mEq/L (98-107); Glucose 114 mg/dL (70-105); Osmolality,Calculated 286 (280-300); Potassium 3.8 mEq/L (3.5-5.1); Sodium 138 mEq/L (136-145); eGFR For Non-African Americans > 60 (> 60)
[2018-03-10 07:05] VITALS: BP 107/66
[2018-03-10] MEDS: Metoprolol XL (24 HR) Succ 25 MG TAB.ER.24H PO SCH (08:37)
[2018-03-10] MEDS: Aspirin Enteric Coated 325 MG Tablet PO SCH (08:37)
[2018-03-10] MEDS: Multivit/Ca/Min/Fe/FA 1 TAB TABLET PO SCH (08:37)
[2018-03-10] MEDS: Sulfamethoxazole/Trimeth DS 1 EACH TABLET PO SCH (08:37)
[2018-03-10] MEDS: SACUBITRIL/VALSARTAN 97/103 MG TABLET PO SCH (08:37)
[2018-03-10] MEDS: Furosemide 40 MG TABLET PO SCH (08:37)
[2018-03-10] MEDS: hydrALAZINE 25 MG TABLET PO SCH (08:37)
[2018-03-10] MEDS: Insulin LISPRO 300 UNITS/3 ML VIAL SQ SCH (08:38)
[2018-03-10] MEDS: Gentamicin Oint 15 GM TUBE TP SCH (08:38)
[2018-03-10] MEDS: (Fluticasone/Vilanterol [Breo Ellipta 100-25 Mcg Inh] IH SCH (08:57)
--- NOTE | 2018-03-10 10:39 | Discharge Summary ---
<Catalino Hargrove - Last Filed: 03/10/18 15:44> Orders not resulted at time of discharge: Pending orders 03/06/18 20:52 Culture,Blood [BC] Stat Date of Encounter: 03/10/18 Time of Encounter: 09:10 - Discharge Diagnosis (1) Cellulitis Status: Acute Qualifiers: Site of cellulitis: extremity Site of cellulitis of extremity: lower extremity Laterality: left Qualified Code(s): L03.116 - Cellulitis of left lower limb (2) Diabetes mellitus, type 2 Status: Chronic Qualifiers: Diabetes mellitus skilled nursing insulin use: with skilled nursing use Diabetes mellitus complication status: with circulatory complication Diabetes mellitus complication detail: with other circulatory complications Qualified Code(s): E11.59 - Type 2 diabetes mellitus with other circulatory complications; Z79.4 - meterman (current) use of insulin (3) Atrial fibrillation Status: Chronic Qualifiers: Atrial fibrillation type: chronic Qualified Code(s): I48.2 - Chronic atrial fibrillation (4) 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 Ballard is a 67 year old male Discharge discussed with: patient - Time Spent with Patient Total time spent providing and/or coordinating discharge services: Less than 30 minutes (10 min) - Discharge Medications Prescriptions: OxyCODONE Immed Rel [Roxicodone 5 MG] 10 mg PO Q6HR PRN 2 Days #16 tablet PRN Reason: Severe Pain Sulfamethoxazole/Trimeth DS [Bactrim Ds] 1 each PO BID 6 Days #12 tablet Home Medications: Albuterol Sulfate [Proair Hfa] 1 - 2 puff IH BID PRN 08/06/17 [History] Aspirin Enteric Coated [Aspirin EC] 325 mg PO DAILY 08/06/17 [History] Atorvastatin Calcium 80 mg PO QPM 08/06/17 [History] Clopidogrel Bisulfate [Plavix] 75 mg PO DAILY 08/06/17 [History] Hydralazine HCl 100 mg PO TID 08/06/17 [History] Insulin Glargine [Lantus] 60 unit SQ DAILY 08/06/17 [History] Insulin LISPRO [HumaLOG] 6 - 10 units SQ TID 08/06/17 [History] Metoprolol Succinate [Toprol Xl] 75 mg PO BID 08/06/17 [History] Multivitamin-Min/Iron/FA/Vit K [Multi-Day Plus Minerals Tablet] 1 tab PO DAILY 08/06/17 [History] Nitroglycerin [Nitrostat] 0.4 mg SL Q5M PRN 08/06/17 [History] Rivaroxaban [Xarelto] 20 mg PO QPM 08/06/17 [History] Tamsulosin [Flomax] 0.4 mg PO DAILY 08/06/17 [History] Fluticasone/Vilanterol [Breo Ellipta 100-25 Mcg INH] 1 puff IH DAILY 01/10/18 [History] Sacubitril/Valsartan 97/103 mg [Entresto 97 mg-103 mg Tablet] 1 tab PO BID 01/10/18 [History] Escitalopram [Lexapro] 10 mg PO DAILY 03/07/18 [History] Furosemide [Lasix] 40 mg PO BID 03/07/18 [History] OxyCODONE Immed Rel [Roxicodone 5 MG] 10 mg PO Q6HR PRN 2 Days #16 tablet 03/10/18 [Rx] Sulfamethoxazole/Trimeth DS [Bactrim Ds] 1 each PO BID 6 Days #12 tablet 03/10/18 [Rx] Allergies/Adverse Reactions: Allergy/AdvReac Type Severity Reaction Status Date / Time No Known Allergies Allergy Verified 03/07/18 11:21 Date of admission: 03/08/18 14:18 Primary care physician: Kenneth Cabral MD Consults: 03/07/18 00:16 Consult to Podiatry [CONS] Routine Consulting Provider: Pod[facility] Reason for Consult: DIabetic cellutlitis/ foreign body in foot Call Completed: Yes - Constitutional Vitals: Temp Pulse Resp BP Pulse Ox 98.5 F 87 16 107/66 91 03/10/18 07:04 03/10/18 07:04 03/10/18 07:04 03/10/18 07:04 03/10/18 07:04 General appearance: Present: A&O X 3, pleasant, no acute distress, answers questions appropriately - Respiratory Respiratory exam: Present: CTAB. Absent: accessory muscle use, rales, rhonchi, wheezes - Cardiovascular Cardiovascular exam: Present: RRR, +S1, +S2. Absent: diastolic murmur, gallop, rubs, systolic murmur - GI/Abdominal GI/Abdominal exam: Present: normal bowel sounds, soft, no peritoneal signs. Absent: distended, tenderness - Extremities Exam Extremities exam: Present: pedal edema (left foot), warm, radial pulses palpable and symmetrical. Absent: calf tenderness, cyanotic Additional comments: erythema involving the left lower extremity with margins clearing from initially marked space. - Skin Additional comments: Ecchymosis involving the anterior brown lower extremity. - Patient Status Disposition: Home, Self-Care Condition: Good - Discharge Instructions Instructions: Sulfamethoxazole/Trimethoprim (By mouth), Oxycodone, Rapid Release (By mouth), Cellulitis (DC), Cellulitis (GEN) Follow Up With: Von Chua DPM [Partnered Physician] - (Your appointment has been requested. Our offices will call with an appointment time and date.) Kenneth Cabral MD [Primary Care Provider] - 03/18/18 10:10 am () - Attending Attestation I saw evaluated and examined this patient and my medical decision-making was reviewed with the Resident Physician, Kenneth Witt. I agree with the documented findings, disposition and treatment plan as described except to any changes set forth below. We independently had [id number] contact with the patient. Patient with a history of diabetes mellitus was hospitalized here after a fall resulting in injury to his left brown from which she developed cellulitis spreading across his entire left lower extremity below the knee including the foot. Patient was treated with IV antibiotics. Patient is on Xarelto at home and appears to have developed contusion involving his left lower extremity with significant ecchymosis. He underwent CT scan and CT angiogram of the left lower extremityany signs of subcutaneous hematoma or ischemia. Patient has good pedal pulses in his left leg. His erythema and cellulitis has significantly improved though he does have contusion and pedal edema. He is stable to be discharged home on oral antibiotics. He will follow up with his primary care provider for further management. He is advised to return to the ER if he develops any fever or chills or night sweats of worsening erythema and swelling of his left lower extremity. <Kenneth Witt - Last Filed: 03/10/18 16:45> - NOTES TO OUTPATIENT PROVIDER Notes to Outpatient Provider: Patient admitted with cellulitis after fall. Treated with vancomycin and discharged on bactrim Orders not resulted at time of discharge: Pending orders 03/06/18 20:52 Culture,Blood [BC] Stat 03/10/18 12:00 Vancomycin,Trough Timed Date of Encounter: 03/10/18 Time of Encounter: 10:35 - Discharge Diagnosis (1) Cellulitis Priority: Primary Status: Acute Qualifiers: Site of cellulitis: extremity Site of cellulitis of extremity: lower extremity Laterality: left Qualified Code(s): L03.116 - Cellulitis of left lower limb (2) Hypokalemia Priority: Secondary Status: Resolved (3) Hypertension Priority: Secondary Status: Chronic Qualifiers: Hypertension type: essential hypertension Qualified Code(s): I10 - Essential (primary) hypertension (4) Diabetes mellitus, type 2 Priority: Secondary Status: Chronic Qualifiers: Diabetes mellitus buttermaker continuous churn insulin use: with buttermaker continuous churn use Diabetes mellitus complication status: with circulatory complication Diabetes mellitus complication detail: with other circulatory complications Qualified Code(s): E11.59 - Type 2 diabetes mellitus with other circulatory complications; Z79.4 - meterman (current) use of insulin (5) Coronary artery disease Priority: Secondary Status: Chronic Qualifiers: Coronary Disease-Associated Artery/Lesion type: [place] artery [place] vs. 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 Ballard is a 67 year old male who presented to the emergency room with complaint of fevers, chills, night sweats, redness and pain in his left leg after falling 2 days previously. He does have a history of diabetes however denies any previous diabetic foot ulcers. On presentation, vital signs are stable laboratory results were significant for leukocytosis of 17.3 with neutrophil predominance and platelets of 133. CRP was elevated at 204. Patient was started on vancomycin, Zosyn and podiatry was consulted. X-rays and lower shortly CTs were significant for soft tissue swelling and edema suggestive of cellulitis versus contusion. Also noted was a nonmetallic foreign body in the left heel. Over course possible stay, patient did gradually improve. Erythema was demarcated and did regress during admission. Blood cultures were negative. He did respond to antibiotics as well as Robbin wrap. Podiatry to evaluate and recommending continuation of antibiotic therapy as well as gentamicin ointment over wound. On day of discharge, patient is medically stable and was instructed to follow up with both podiatry and his primary care physician. He will be given a prescription for Bactrim for total of 10 days of therapy. QUESTIONS were answered. He was also given a prescription for a walker as the cellulitis combined with recent illness did contribute to unsteadiness during walking. Discharge discussed with: patient - Time Spent with Patient Total time spent providing and/or coordinating discharge services: Date of admission: 03/08/18 14:18 Primary care physician: Kenneth Cabral MD Consults: 03/07/18 00:16 Consult to Podiatry [CONS] Routine Consulting Provider: Pod[facility]ry [facility] Reason for Consult: DIabetic cellutlitis/ foreign body in foot Call Completed: Yes Discharging clinician: Kenneth Witt Anticipated date of discharge: 03/10/18 - Constitutional Vitals: Temp Pulse Resp BP Pulse Ox 98.5 F 87 16 107/66 91 03/10/18 07:04 03/10/18 07:04 03/10/18 07:04 03/10/18 07:04 03/10/18 07:04 General appearance: Present: cooperative, A&O X 3, pleasant, no acute distress, answers questions appropriately Exam: Gen.: Vitals noted. No acute distress. AAOx3, sitting up at bedside HEENT: PERRL/EOMI, oropharynx clear, Normocephalic, atraumatic, MMM Cardiac: RRR, no murmur, +S1/S2, 2+ BLE edema Pulmonary: CTA bilaterally, no wheezes, rales or rhonchi, equal chest expansion, unlabored breathing Abdomen: soft, nontender, BS noted, no guarding, no palpable HSM, DOMINIQUE drain in place with serous output Skin: warm and dry, some ecchymosis, erythema of bilateral LE which appears to be improving from previous MSK: ROM not assessed, no joint swelling noted, gait no assessed while in bed. Non tender calf or clubbing Neuro: A&Ox3, moves all extremities, no focal deficits, sensation intact Psych: Appropriate mood and behavior, AOx3 - Patient Status Functional capacity at discharge: uses cane/walker Overall status at discharge: patient is progressing back to baseline - Diet and Activity Activity: increase activity as tolerated, return to work once cleared by your PCP/specialist, resume usual activities as tolerated Diet: diabetic diet
[2018-03-10] MEDS ORDERED: Aminoglycoside Consult 1 EACH MC ONE (12:00)
== END 2018-03-10 12:01 | disposition home or self-care (01) | DRG 603 ==
LOC: 3BNU 17:32 → EMEROOARM 17:32 → SUATTDRO 20:47 → 3BNU 21:18
PROVIDERS: ADMIT Family Medicine; ATTEND Internal Medicine

== ENCOUNTER 2018-12-29 10:53 | Observation (INO) ==
[2018-12-29] MEDS ORDERED: 0.9 % Sodium Chloride 500 ML IV ONE (11:25)
[2018-12-29 11:51] LABS: Basophils # 0.1 K/mcL (0.0-0.2); Basophils % 0.9 %; Hematocrit 45.8 % (37.5-50.1); Hemoglobin 16.2 g/dL (12.9-16.9); Immature Granulocytes % 0.3 % (0-4); Lymphocytes % 21.4 %; Mean Corpuscular HGB Conc 35.4 g/dL (31.6-35.5); Mean Corpuscular Hemoglobin 34.3 pg (28.0-33.3); Mean Platelet Volume 10.6 fL (9.4-12.4); Monocytes # 0.6 K/mcL (0.0-1.3); Monocytes % 6.6 %; Neutrophils # 6.7 K/mcL (1.6-8.9); Platelet Count 187 K/mcL (140-400); Red Blood Count 4.72 M/mcL (4.19-5.50); Red Cell Distribution Width 14.2 % (11.5-14.5); Segmented Neutrophils % 70.8 %; White Blood Count 9.4 K/mcL (4.3-11.1)
[2018-12-29 12:14] LABS: Calcium 9.9 mg/dL (8.6-10.3); Potassium 3.4 mEq/L (3.5-5.1)
[2018-12-29 13:41] LABS: Bilirubin,Urine Negative (Negative); Blood,Urine Negative (Negative); Clarity,Urine Clear (Clear); Color,Urine Yellow (Yellow); Glucose,Urine (UA) Normal (Normal); Ketones,Urine Negative (Negative); Leukocyte Esterase,Urine Negative (Negative); Nitrite,Urine Negative (Negative); Protein,Urine Negative (Neg-Trace); Specific Gravity,Urine 1.015 (1.010-1.025); Urobilinogen,Urine Normal (Normal)
[2018-12-29] MEDS ORDERED: 0.9 % Sodium Chloride 1,000 ML IVC SCH (14:00)
[2018-12-29 15:57] VITALS: BP 108/74
[2018-12-29 17:05] LABS: Potassium 3.5 mEq/L (3.5-5.1)
== END 2018-12-29 17:39 | disposition home or self-care (01) ==
LOC: CDU 10:53 → EMEROOARM 10:53 → SUATTDRO 14:26 → CDU 15:35
PROVIDERS: ADMIT Internal Medicine; ATTEND Internal Medicine

== ENCOUNTER 2021-07-13 23:41 | Inpatient (IN) ==
[2021-07-14] MEDS ORDERED: Perflutren Lipid Microsphere 1.3 ML in 0.9 % Sodium Chloride 8.7 ML IVP PRN (08:37)
[2021-07-14] MEDS: Albumin Human 5% 12.5 GM/250 ML IV.SOLN IVC SCH ×2 (09:10→11:20)
[2021-07-14 09:14] LABS: Basophils % 0.3 %; Eosinophils # 0.1 K/mcL (0.0-0.6); Eosinophils % 0.4 %; Hematocrit 37.9 % (37.5-50.1); Hemoglobin 13.1 g/dL (12.9-16.9); Immature Granulocytes % 0.5 % (0-4); Lymphocytes # 1.1 K/mcL (0.6-4.6); Lymphocytes % 9.3 %; Mean Corpuscular HGB Conc 34.6 g/dL (31.6-35.5); Mean Corpuscular Hemoglobin 35.3 pg (28.0-33.3); Mean Corpuscular Volume 102.2 fL (83.0-100.0); Mean Platelet Volume 11.1 fL (9.4-12.4); Monocytes % 8.5 %; Neutrophils # 9.2 K/mcL (1.6-8.9); Platelet Count 141 K/mcL (140-400); Red Blood Count 3.71 M/mcL (4.19-5.50); Red Cell Distribution Width 13.2 % (11.5-14.5); White Blood Count 11.4 K/mcL (4.3-11.1)
[2021-07-14] MEDS: Piperacillin/Tazobactam 3.375 GM in 0.9 % Sodium Chloride Mini Bag 100 ML IVPB SCH ×2 (09:17→20:06)
[2021-07-14 09:33] LABS: Alanine Aminotransferase 37 Units/L (7-52); Alkaline Phosphatase 49 Units/L (34-104); Aspartate Amino Transferase 23 Units/L (13-39); BUN/Creatinine Ratio 19 (6-26); Bilirubin,Direct 0.2 mg/dL (0.0-0.2); Bilirubin,Indirect 0.5 mg/dL (0.0-1.0); Bilirubin,Total 0.7 mg/dL (0.3-1.0); Blood Urea Nitrogen 46 mg/dL (8-23); Calcium 8.4 mg/dL (8.6-10.3); Carbon Dioxide 23 mEq/L (23-29); Chloride 108 mEq/L (98-107); Globulin 2.9 g/dL (2.4-3.5); Glucose 192 mg/dL (70-105); Lipase 4 Units/L (11-82); Osmolality,Calculated 303 (280-300); Sodium 138 mEq/L (136-145); Total Protein 5.9 g/dL (6.4-8.9); Troponin I < 0.03 ng/mL (< 0.04); eGFR For African Americans 33 (> 60); eGFR For Non-African Americans 27 (> 60)
[2021-07-14 09:34] LABS: Magnesium 1.7 mg/dL (1.6-2.6); Phosphorous 2.9 mg/dL (2.7-4.5)
[2021-07-14] MEDS: Norepinephrine 4 MG/254 ML IV.SOLN IVC SCH ×3 (09:38→23:39)
[2021-07-14] MEDS: DOBUTamine 1,000 MG/250 ML BAG IVC SCH (09:38)
[2021-07-14 09:46] LABS: Thyroid Stimulating Hormone 1.683 mcIU/mL (0.340-5.600)
[2021-07-14 09:47] LABS: Bacteria,Urine Few per hpf (None-Few); Bilirubin,Urine Negative (Negative); Blood,Urine Large (Negative); Clarity,Urine Turbid (Clear); Color,Urine Colorless (Yellow); Glucose,Urine (UA) Normal (Normal); Ketones,Urine Negative (Negative); Leukocyte Esterase,Urine Moderate (Negative); Mucus,Urine Few per lpf (None-Few); Nitrite,Urine Negative (Negative); PH,Urine 6.5 pH Units (5.0-8.0); Protein,Urine Trace mg/dL (Neg-Trace); RBC,Urine TNTC per hpf (0-3); Squamous Epithelial Cell,Urine Few per hpf (None-Few); Urobilinogen,Urine Normal (Normal); WBC,Urine 50-100 per hpf (0-3)
[2021-07-14] MEDS ORDERED: Potassium Phosphate 44 MEQ in 0.9 % Sodium Chloride 250 ML IVPB PRN (11:12)
[2021-07-14] MEDS ORDERED: Calcium Gluconate 1gm/50mL 1 GM/50 ML BAG IVPB PRN (11:12)
[2021-07-14] MEDS ORDERED: Naloxone 0.4 MG/ML INJ IVP PRN (11:12)
[2021-07-14 13:52] LABS: VBG Ionized Calcium 1.18 mmol/L (1.15-1.35)
[2021-07-14 13:58] LABS: INR 1.9; Prothrombin Time 21.5 Seconds (9.4-12.1)
[2021-07-15 00:32] LABS: Calcium 8.4 mg/dL (8.6-10.3)
[2021-07-15 03:41] LABS: Basophils # 0.1 K/mcL (0.0-0.2); Basophils % 0.8 %; Eosinophils # 0.3 K/mcL (0.0-0.6); Eosinophils % 4.3 %; Hematocrit 34.7 % (37.5-50.1); Hemoglobin 11.8 g/dL (12.9-16.9); Immature Granulocytes % 0.5 % (0-4); Lymphocytes # 1.2 K/mcL (0.6-4.6); Lymphocytes % 15.7 %; Mean Corpuscular Hemoglobin 34.9 pg (28.0-33.3); Mean Corpuscular Volume 102.7 fL (83.0-100.0); Mean Platelet Volume 11.2 fL (9.4-12.4); Monocytes # 0.7 K/mcL (0.0-1.3); Monocytes % 8.9 %; Neutrophils # 5.4 K/mcL (1.6-8.9); Platelet Count 141 K/mcL (140-400); Red Blood Count 3.38 M/mcL (4.19-5.50); Red Cell Distribution Width 13.6 % (11.5-14.5); Segmented Neutrophils % 69.8 %; White Blood Count 7.7 K/mcL (4.3-11.1)
[2021-07-15 03:43] LABS: VBG Ionized Calcium 1.21 mmol/L (1.15-1.35)
[2021-07-15 04:03] LABS: Albumin/Globulin Ratio 1.3 (1.1-2.2); Bilirubin,Total 0.8 mg/dL (0.3-1.0); Calcium 8.4 mg/dL (8.6-10.3); Globulin 2.4 g/dL (2.4-3.5); Phosphorous 3.5 mg/dL (2.7-4.5); Potassium 3.2 mEq/L (3.5-5.1); Total Protein 5.4 g/dL (6.4-8.9)
[2021-07-15] MEDS: DOBUTamine 1,000 MG/250 ML BAG IVC SCH (08:53)
[2021-07-15] MEDS ORDERED: *HR* Heparin 5,000 UNIT/ML VIAL SQ SCH (09:15)
[2021-07-15] MEDS: Piperacillin/Tazobactam 3.375 GM in 0.9 % Sodium Chloride Mini Bag 100 ML IVPB SCH ×2 (11:08→21:09)
[2021-07-15 13:14] LABS: Complement C3 116 mg/dL (87-200)
[2021-07-15 13:20] LABS: Calcium 8.6 mg/dL (8.6-10.3); Potassium 4.3 mEq/L (3.5-5.1)
[2021-07-15 13:29] LABS: Protein/Creatinine Ratio,Urine 0.64 mg/mg (0.00-0.20); Sodium, Urine 33.9 mEq/L
[2021-07-15] MEDS ORDERED: *HR* Rivaroxaban 10 MG TABLET PO SCH (17:00)
[2021-07-15] MEDS: Norepinephrine 4 MG/254 ML IV.SOLN IVC SCH (17:14)
[2021-07-15] MEDS ORDERED: Potassium Phosphate 44 MEQ in 0.9 % Sodium Chloride 250 ML IVPB PRN (18:33)
[2021-07-15] MEDS ORDERED: Calcium Gluconate 1gm/50mL 1 GM/50 ML BAG IVPB PRN (18:33)
[2021-07-15] MEDS ORDERED: Naloxone 0.4 MG/ML INJ IVP PRN (18:33)
[2021-07-16] MEDS: Piperacillin/Tazobactam 3.375 GM in 0.9 % Sodium Chloride Mini Bag 100 ML IVPB SCH ×2 (09:22→16:42)
[2021-07-16 09:45] LABS: Basophils # 0.1 K/mcL (0.0-0.2); Basophils % 1.3 %; Eosinophils # 0.3 K/mcL (0.0-0.6); Eosinophils % 3.3 %; Hemoglobin 12.8 g/dL (12.9-16.9); Immature Granulocytes % 1.2 % (0-4); Lymphocytes # 1.2 K/mcL (0.6-4.6); Lymphocytes % 15.8 %; Mean Corpuscular HGB Conc 33.7 g/dL (31.6-35.5); Mean Corpuscular Volume 103.8 fL (83.0-100.0); Mean Platelet Volume 11.2 fL (9.4-12.4); Monocytes # 0.8 K/mcL (0.0-1.3); Monocytes % 9.9 %; Neutrophils # 5.2 K/mcL (1.6-8.9); Platelet Count 159 K/mcL (140-400); Red Blood Count 3.66 M/mcL (4.19-5.50); Red Cell Distribution Width 13.3 % (11.5-14.5); Segmented Neutrophils % 68.5 %; White Blood Count 7.6 K/mcL (4.3-11.1)
[2021-07-16] MEDS: *HR* Amiodarone 200 MG TABLET PO SCH (11:51)
[2021-07-16] MEDS ORDERED: Dextrose Gel 15 GM/37.5 ML TUBE PO PRN ×2 (13:14)
[2021-07-16] MEDS ORDERED: D5% in Water 1,000 ML IVC PRN (13:14)
[2021-07-16] MEDS ORDERED: *HR* Dextrose 50 % in Water (Syg) 50 ML SYRINGE IVP PRN (13:14)
[2021-07-16 15:38] LABS: Albumin 3.2 g/dL (3.5-5.7); Albumin/Globulin Ratio 1.2 (1.1-2.2); Bilirubin,Total 0.7 mg/dL (0.3-1.0); Calcium 8.7 mg/dL (8.6-10.3); Globulin 2.7 g/dL (2.4-3.5); Magnesium 1.6 mg/dL (1.6-2.6); Phosphorous 2.5 mg/dL (2.7-4.5); Total Protein 5.9 g/dL (6.4-8.9)
[2021-07-16] MEDS: *HR* Rivaroxaban 10 MG TABLET PO SCH (16:42)
[2021-07-16] MEDS: Insulin LISPRO 300 UNITS/3 ML VIAL SUBQ SCH ×2 (16:42→20:44)
[2021-07-16] MEDS ORDERED: NON-FORMULARY MEDICATION 1 EACH EACH (Rivaroxaban [Xarelto] 20 MG Tablet) PO SCH (18:00)
[2021-07-16] MEDS: Ranolazine 500 MG TAB.ER.12H PO SCH (20:38)
[2021-07-17] MEDS: Piperacillin/Tazobactam 3.375 GM in 0.9 % Sodium Chloride Mini Bag 100 ML IVPB SCH ×3 (01:56→18:31)
[2021-07-17 02:23] LABS: Basophils # 0.1 K/mcL (0.0-0.2); Basophils % 1.2 %; Eosinophils # 0.2 K/mcL (0.0-0.6); Eosinophils % 2.1 %; Hematocrit 36.6 % (37.5-50.1); Hemoglobin 12.5 g/dL (12.9-16.9); Immature Granulocytes % 1.3 % (0-4); Lymphocytes # 1.5 K/mcL (0.6-4.6); Lymphocytes % 17.4 %; Mean Corpuscular HGB Conc 34.2 g/dL (31.6-35.5); Mean Corpuscular Hemoglobin 34.9 pg (28.0-33.3); Mean Corpuscular Volume 102.2 fL (83.0-100.0); Monocytes % 11.5 %; Neutrophils # 5.8 K/mcL (1.6-8.9); Platelet Count 152 K/mcL (140-400); Red Blood Count 3.58 M/mcL (4.19-5.50); Segmented Neutrophils % 66.5 %; White Blood Count 8.7 K/mcL (4.3-11.1)
[2021-07-17 02:45] LABS: Albumin 3.2 g/dL (3.5-5.7); Albumin/Globulin Ratio 1.2 (1.1-2.2); Bilirubin,Total 0.7 mg/dL (0.3-1.0); Calcium 8.6 mg/dL (8.6-10.3); Globulin 2.7 g/dL (2.4-3.5); Magnesium 1.5 mg/dL (1.6-2.6); Phosphorous 2.3 mg/dL (2.7-4.5); Potassium 3.1 mEq/L (3.5-5.1); Total Protein 5.9 g/dL (6.4-8.9)
[2021-07-17] MEDS: *HR* Amiodarone 200 MG TABLET PO SCH (08:23)
[2021-07-17] MEDS: Ranolazine 500 MG TAB.ER.12H PO SCH ×2 (08:23→20:29)
[2021-07-17] MEDS: Insulin LISPRO 300 UNITS/3 ML VIAL SUBQ SCH ×4 (08:24→20:23)
[2021-07-17] MEDS ORDERED: Acetaminophen 325 MG TABLET PO PRN (13:06)
[2021-07-17] MEDS ORDERED: Piperacillin/Tazobactam 3.375 GM VIAL ONE (17:52)
[2021-07-17] MEDS: *HR* Rivaroxaban 10 MG TABLET PO SCH (18:30)
[2021-07-17] MEDS ORDERED: *HR* HYDROcodone/Acet 10/325 mg TABLET PO ONE (18:35)
[2021-07-18] MEDS: Piperacillin/Tazobactam 3.375 GM in 0.9 % Sodium Chloride Mini Bag 100 ML IVPB SCH ×3 (02:44→17:48)
[2021-07-18] MEDS ORDERED: *HR* HYDROcodone/Acet 10/325 mg TABLET PO ONE (02:57)
[2021-07-18 04:01] LABS: Basophils # 0.1 K/mcL (0.0-0.2); Basophils % 0.9 %; Eosinophils # 0.2 K/mcL (0.0-0.6); Eosinophils % 1.6 %; Hematocrit 33.8 % (37.5-50.1); Hemoglobin 11.5 g/dL (12.9-16.9); Immature Granulocytes % 1.4 % (0-4); Lymphocytes # 1.8 K/mcL (0.6-4.6); Lymphocytes % 19.5 %; Mean Corpuscular Hemoglobin 35.1 pg (28.0-33.3); Monocytes # 1.1 K/mcL (0.0-1.3); Monocytes % 11.8 %; Neutrophils # 5.9 K/mcL (1.6-8.9); Platelet Count 154 K/mcL (140-400); Red Blood Count 3.28 M/mcL (4.19-5.50); Segmented Neutrophils % 64.8 %; White Blood Count 9.1 K/mcL (4.3-11.1)
[2021-07-18 04:23] LABS: Alanine Aminotransferase 30 Units/L (7-52); Albumin 3.1 g/dL (3.5-5.7); Albumin/Globulin Ratio 1.2 (1.1-2.2); Alkaline Phosphatase 44 Units/L (34-104); Aspartate Amino Transferase 24 Units/L (13-39); BUN/Creatinine Ratio 13 (6-26); Bilirubin,Total 0.9 mg/dL (0.3-1.0); Blood Urea Nitrogen 17 mg/dL (8-23); Calcium 8.4 mg/dL (8.6-10.3); Carbon Dioxide 26 mEq/L (23-29); Chloride 106 mEq/L (98-107); Globulin 2.5 g/dL (2.4-3.5); Glucose 167 mg/dL (70-105); Magnesium 1.8 mg/dL (1.6-2.6); Osmolality,Calculated 289 (280-300); Phosphorous 2.5 mg/dL (2.7-4.5); Potassium 3.3 mEq/L (3.5-5.1); Sodium 137 mEq/L (136-145); Total Protein 5.6 g/dL (6.4-8.9); eGFR For African Americans > 60 (> 60); eGFR For Non-African Americans 55 (> 60)
[2021-07-18] MEDS: Ranolazine 500 MG TAB.ER.12H PO SCH ×2 (08:04→21:01)
[2021-07-18] MEDS: *HR* Amiodarone 200 MG TABLET PO SCH (08:04)
[2021-07-18] MEDS: Insulin LISPRO 300 UNITS/3 ML VIAL SUBQ SCH ×4 (08:05→21:01)
[2021-07-18 12:34] LABS: ANA IgG by ELISA NONE DETECTED (None Detected)
[2021-07-18] MEDS: *HR* Rivaroxaban 10 MG TABLET PO SCH (17:48)
[2021-07-18 23:04] LABS: ANCA IFA Titer <1:20 (<1:20)
[2021-07-19] MEDS: Piperacillin/Tazobactam 3.375 GM in 0.9 % Sodium Chloride Mini Bag 100 ML IVPB SCH ×3 (03:54→21:35)
[2021-07-19 07:23] LABS: Basophils # 0.1 K/mcL (0.0-0.2); Basophils % 0.5 %; Eosinophils # 0.2 K/mcL (0.0-0.6); Eosinophils % 1.5 %; Hematocrit 33.8 % (37.5-50.1); Hemoglobin 11.6 g/dL (12.9-16.9); Immature Granulocytes % 1.5 % (0-4); Lymphocytes # 1.3 K/mcL (0.6-4.6); Lymphocytes % 12.9 %; Mean Corpuscular HGB Conc 34.3 g/dL (31.6-35.5); Mean Corpuscular Volume 102.1 fL (83.0-100.0); Mean Platelet Volume 11.1 fL (9.4-12.4); Monocytes # 0.9 K/mcL (0.0-1.3); Monocytes % 9.1 %; Neutrophils # 7.4 K/mcL (1.6-8.9); Platelet Count 177 K/mcL (140-400); Red Blood Count 3.31 M/mcL (4.19-5.50); Red Cell Distribution Width 13.2 % (11.5-14.5); Segmented Neutrophils % 74.5 %
[2021-07-19 07:38] LABS: BUN/Creatinine Ratio 14 (6-26); Blood Urea Nitrogen 16 mg/dL (8-23); Calcium 8.4 mg/dL (8.6-10.3); Carbon Dioxide 23 mEq/L (23-29); Chloride 107 mEq/L (98-107); Glucose 164 mg/dL (70-105); Osmolality,Calculated 291 (280-300); Potassium 3.3 mEq/L (3.5-5.1); Sodium 138 mEq/L (136-145); eGFR For African Americans > 60 (> 60); eGFR For Non-African Americans > 60 (> 60)
[2021-07-19] MEDS: *HR* Amiodarone 200 MG TABLET PO SCH (08:10)
[2021-07-19] MEDS: Ranolazine 500 MG TAB.ER.12H PO SCH ×2 (08:10→21:35)
[2021-07-19] MEDS: Insulin LISPRO 300 UNITS/3 ML VIAL SUBQ SCH ×4 (08:11→21:36)
[2021-07-19 08:18] LABS: ANCA IFA Pattern NONE DETECTED (None Detected); Serine Protease-3 Antibody 0 AU/mL (0-19)
[2021-07-19] MEDS ORDERED: Vancomycin 2,000 MG/520 ML IV.SOLN IVPB ONE (10:37)
[2021-07-19] MEDS ORDERED: Potassium Chloride Elixir 20 MEQ/15 ML UDC PO ONE (11:44)
[2021-07-19] MEDS: *HR* Rivaroxaban 10 MG TABLET PO SCH (16:23)
[2021-07-19] MEDS ORDERED: Albuterol 2.5 MG/3 ML NEBULIZER IH PRN (20:44)
[2021-07-20] MEDS: Vancomycin 1,500 MG/265 ML IV.SOLN IVPB SCH ×2 (01:59→12:58)
[2021-07-20 02:50] LABS: Alpha 2 Globulin (PEP) 0.75 g/dL (0.48-1.05); Beta Globulin (PEP) 0.68 g/dL (0.48-1.10)
[2021-07-20 03:36] LABS: Basophils # 0.1 K/mcL (0.0-0.2); Basophils % 0.5 %; Eosinophils # 0.2 K/mcL (0.0-0.6); Eosinophils % 1.6 %; Hemoglobin 11.7 g/dL (12.9-16.9); Immature Granulocytes % 1.6 % (0-4); Lymphocytes # 1.2 K/mcL (0.6-4.6); Lymphocytes % 11.9 %; Mean Corpuscular HGB Conc 33.4 g/dL (31.6-35.5); Mean Corpuscular Hemoglobin 34.3 pg (28.0-33.3); Mean Corpuscular Volume 102.6 fL (83.0-100.0); Mean Platelet Volume 11.1 fL (9.4-12.4); Monocytes # 0.8 K/mcL (0.0-1.3); Monocytes % 8.5 %; Neutrophils # 7.5 K/mcL (1.6-8.9); Platelet Count 202 K/mcL (140-400); Red Blood Count 3.41 M/mcL (4.19-5.50); Red Cell Distribution Width 13.2 % (11.5-14.5); Segmented Neutrophils % 75.9 %; White Blood Count 9.9 K/mcL (4.3-11.1)
[2021-07-20 03:55] LABS: BUN/Creatinine Ratio 15 (6-26); Blood Urea Nitrogen 15 mg/dL (8-23); Calcium 8.4 mg/dL (8.6-10.3); Carbon Dioxide 22 mEq/L (23-29); Chloride 109 mEq/L (98-107); Glucose 162 mg/dL (70-105); Osmolality,Calculated 286 (280-300); Potassium 3.7 mEq/L (3.5-5.1); Sodium 136 mEq/L (136-145); eGFR For African Americans > 60 (> 60); eGFR For Non-African Americans > 60 (> 60)
[2021-07-20] MEDS: Piperacillin/Tazobactam 3.375 GM in 0.9 % Sodium Chloride Mini Bag 100 ML IVPB SCH ×3 (06:03→21:17)
[2021-07-20] MEDS: *HR* Amiodarone 200 MG TABLET PO SCH (08:09)
[2021-07-20] MEDS: Ranolazine 500 MG TAB.ER.12H PO SCH ×2 (08:09→21:18)
[2021-07-20] MEDS: Insulin LISPRO 300 UNITS/3 ML VIAL SUBQ SCH ×4 (08:09→21:18)
[2021-07-20 10:06] LABS: IFE Reflexed NOT DONE
[2021-07-20] MEDS: *HR* Rivaroxaban 10 MG TABLET PO SCH (17:36)
[2021-07-20] MEDS: Insulin DETEMIR 100 UNIT/ML X5UNITS SUBQ SCH (21:20)
[2021-07-21] MEDS: Vancomycin 1,500 MG/265 ML IV.SOLN IVPB SCH (01:15)
[2021-07-21 03:37] LABS: Basophils # 0.1 K/mcL (0.0-0.2); Basophils % 0.7 %; Eosinophils # 0.2 K/mcL (0.0-0.6); Eosinophils % 2.1 %; Hematocrit 32.3 % (37.5-50.1); Hemoglobin 10.9 g/dL (12.9-16.9); Immature Granulocytes % 1.2 % (0-4); Lymphocytes # 1.5 K/mcL (0.6-4.6); Lymphocytes % 15.8 %; Mean Corpuscular HGB Conc 33.7 g/dL (31.6-35.5); Mean Corpuscular Hemoglobin 34.8 pg (28.0-33.3); Mean Corpuscular Volume 103.2 fL (83.0-100.0); Monocytes # 0.8 K/mcL (0.0-1.3); Monocytes % 8.2 %; Neutrophils # 6.8 K/mcL (1.6-8.9); Platelet Count 208 K/mcL (140-400); Red Blood Count 3.13 M/mcL (4.19-5.50); Red Cell Distribution Width 13.2 % (11.5-14.5); White Blood Count 9.5 K/mcL (4.3-11.1)
[2021-07-21 03:56] LABS: BUN/Creatinine Ratio 15 (6-26); Blood Urea Nitrogen 16 mg/dL (8-23); Calcium 8.3 mg/dL (8.6-10.3); Carbon Dioxide 21 mEq/L (23-29); Chloride 108 mEq/L (98-107); Glucose 158 mg/dL (70-105); Osmolality,Calculated 286 (280-300); Potassium 3.5 mEq/L (3.5-5.1); Sodium 136 mEq/L (136-145); eGFR For African Americans > 60 (> 60); eGFR For Non-African Americans > 60 (> 60)
[2021-07-21] MEDS: Piperacillin/Tazobactam 3.375 GM in 0.9 % Sodium Chloride Mini Bag 100 ML IVPB SCH ×3 (05:05→19:51)
[2021-07-21] MEDS: Ranolazine 500 MG TAB.ER.12H PO SCH ×2 (08:04→19:51)
[2021-07-21] MEDS: *HR* Amiodarone 200 MG TABLET PO SCH (08:04)
[2021-07-21] MEDS: Insulin LISPRO 300 UNITS/3 ML VIAL SUBQ SCH ×4 (08:04→21:11)
[2021-07-21] MEDS: Bumetanide 1 MG TABLET PO SCH (12:27)
[2021-07-21] MEDS: Vancomycin 1,250 MG/262.5 ML IV.SOLN IVPB SCH (14:12)
[2021-07-21] MEDS: *HR* Rivaroxaban 10 MG TABLET PO SCH (16:34)
[2021-07-21] MEDS: Insulin DETEMIR 100 UNIT/ML X5UNITS SUBQ SCH (21:11)
[2021-07-22] MEDS: Vancomycin 1,250 MG/262.5 ML IV.SOLN IVPB SCH ×2 (01:19→16:11)
[2021-07-22] MEDS: Piperacillin/Tazobactam 3.375 GM in 0.9 % Sodium Chloride Mini Bag 100 ML IVPB SCH ×3 (05:28→22:09)
[2021-07-22 06:39] LABS: Basophils # 0.1 K/mcL (0.0-0.2); Basophils % 0.8 %; Eosinophils # 0.2 K/mcL (0.0-0.6); Eosinophils % 1.7 %; Hematocrit 33.2 % (37.5-50.1); Hemoglobin 10.9 g/dL (12.9-16.9); Immature Granulocytes % 0.7 % (0-4); Lymphocytes # 1.5 K/mcL (0.6-4.6); Mean Corpuscular HGB Conc 32.8 g/dL (31.6-35.5); Mean Corpuscular Hemoglobin 34.3 pg (28.0-33.3); Mean Corpuscular Volume 104.4 fL (83.0-100.0); Monocytes # 0.7 K/mcL (0.0-1.3); Monocytes % 6.8 %; Neutrophils # 7.3 K/mcL (1.6-8.9); Platelet Count 224 K/mcL (140-400); Red Blood Count 3.18 M/mcL (4.19-5.50); Red Cell Distribution Width 13.1 % (11.5-14.5); White Blood Count 9.8 K/mcL (4.3-11.1)
[2021-07-22 07:01] LABS: BUN/Creatinine Ratio 15 (6-26); Blood Urea Nitrogen 18 mg/dL (8-23); Calcium 8.5 mg/dL (8.6-10.3); Carbon Dioxide 24 mEq/L (23-29); Chloride 107 mEq/L (98-107); Glucose 139 mg/dL (70-105); Osmolality,Calculated 288 (280-300); Potassium 3.6 mEq/L (3.5-5.1); Sodium 137 mEq/L (136-145); eGFR For African Americans > 60 (> 60); eGFR For Non-African Americans 60 (> 60)
[2021-07-22] MEDS: Ranolazine 500 MG TAB.ER.12H PO SCH (08:09)
[2021-07-22] MEDS: Bumetanide 1 MG TABLET PO SCH (08:09)
[2021-07-22] MEDS: *HR* Amiodarone 200 MG TABLET PO SCH (08:09)
[2021-07-22] MEDS: Insulin LISPRO 300 UNITS/3 ML VIAL SUBQ SCH ×4 (08:10→22:05)
[2021-07-22] MEDS: Metoprolol XL (24 HR) Succ 25 MG TAB.ER.24H PO SCH (12:42)
[2021-07-22] MEDS: *HR* Rivaroxaban 10 MG TABLET PO SCH (18:06)
[2021-07-22] MEDS: Insulin DETEMIR 100 UNIT/ML X5UNITS SUBQ SCH (22:09)
[2021-07-23 01:30] LABS: Basophils # 0.1 K/mcL (0.0-0.2); Basophils % 0.9 %; Eosinophils # 0.2 K/mcL (0.0-0.6); Eosinophils % 1.8 %; Hematocrit 32.4 % (37.5-50.1); Hemoglobin 10.8 g/dL (12.9-16.9); Immature Granulocytes % 0.8 % (0-4); Lymphocytes # 1.3 K/mcL (0.6-4.6); Mean Corpuscular HGB Conc 33.3 g/dL (31.6-35.5); Mean Corpuscular Hemoglobin 34.3 pg (28.0-33.3); Mean Corpuscular Volume 102.9 fL (83.0-100.0); Mean Platelet Volume 10.5 fL (9.4-12.4); Monocytes # 0.6 K/mcL (0.0-1.3); Monocytes % 6.7 %; Neutrophils # 6.5 K/mcL (1.6-8.9); Platelet Count 225 K/mcL (140-400); Red Blood Count 3.15 M/mcL (4.19-5.50); Red Cell Distribution Width 13.2 % (11.5-14.5); Segmented Neutrophils % 74.8 %; White Blood Count 8.7 K/mcL (4.3-11.1)
[2021-07-23 01:48] LABS: Vancomycin,Trough 17 mcg/mL (5-10)
[2021-07-23] MEDS: Ranolazine 500 MG TAB.ER.12H PO SCH ×3 (02:34→22:10)
[2021-07-23] MEDS: Vancomycin 1,250 MG/262.5 ML IV.SOLN IVPB SCH ×2 (02:37→17:32)
[2021-07-23] MEDS: Piperacillin/Tazobactam 3.375 GM in 0.9 % Sodium Chloride Mini Bag 100 ML IVPB SCH ×3 (05:23→22:10)
[2021-07-23] MEDS: *HR* Amiodarone 200 MG TABLET PO SCH (08:13)
[2021-07-23] MEDS: Metoprolol XL (24 HR) Succ 25 MG TAB.ER.24H PO SCH (08:14)
[2021-07-23] MEDS: Bumetanide 1 MG TABLET PO SCH (08:14)
[2021-07-23] MEDS: Insulin LISPRO 300 UNITS/3 ML VIAL SUBQ SCH ×4 (08:15→22:00)
[2021-07-23] MEDS ORDERED: Bumetanide 1 MG/4 ML VIAL IVP ONE (15:00)
[2021-07-23] MEDS: *HR* Rivaroxaban 10 MG TABLET PO SCH (17:31)
[2021-07-23] MEDS: Insulin DETEMIR 100 UNIT/ML X5UNITS SUBQ SCH (22:10)
[2021-07-24 03:18] LABS: Basophils # 0.1 K/mcL (0.0-0.2); Basophils % 1.1 %; Eosinophils # 0.2 K/mcL (0.0-0.6); Eosinophils % 2.1 %; Hemoglobin 11.5 g/dL (12.9-16.9); Immature Granulocytes % 0.7 % (0-4); Lymphocytes # 1.4 K/mcL (0.6-4.6); Mean Corpuscular HGB Conc 32.9 g/dL (31.6-35.5); Mean Corpuscular Hemoglobin 33.9 pg (28.0-33.3); Mean Corpuscular Volume 103.2 fL (83.0-100.0); Mean Platelet Volume 10.7 fL (9.4-12.4); Monocytes # 0.8 K/mcL (0.0-1.3); Monocytes % 7.1 %; Neutrophils # 8.2 K/mcL (1.6-8.9); Platelet Count 255 K/mcL (140-400); Red Blood Count 3.39 M/mcL (4.19-5.50); White Blood Count 10.7 K/mcL (4.3-11.1)
[2021-07-24 03:36] LABS: BUN/Creatinine Ratio 14 (6-26); Blood Urea Nitrogen 18 mg/dL (8-23); Calcium 8.8 mg/dL (8.6-10.3); Carbon Dioxide 22 mEq/L (23-29); Chloride 108 mEq/L (98-107); Glucose 142 mg/dL (70-105); Osmolality,Calculated 290 (280-300); Potassium 3.6 mEq/L (3.5-5.1); Sodium 138 mEq/L (136-145); eGFR For African Americans > 60 (> 60); eGFR For Non-African Americans 57 (> 60)
[2021-07-24] MEDS: Piperacillin/Tazobactam 3.375 GM in 0.9 % Sodium Chloride Mini Bag 100 ML IVPB SCH ×2 (05:13→14:02)
[2021-07-24] MEDS: Bumetanide 1 MG TABLET PO SCH (08:22)
[2021-07-24] MEDS: Ranolazine 500 MG TAB.ER.12H PO SCH (08:22)
[2021-07-24] MEDS: *HR* Amiodarone 200 MG TABLET PO SCH (08:22)
[2021-07-24] MEDS: Metoprolol XL (24 HR) Succ 25 MG TAB.ER.24H PO SCH (08:22)
[2021-07-24] MEDS: Insulin LISPRO 300 UNITS/3 ML VIAL SUBQ SCH ×3 (08:22→16:44)
[2021-07-24 12:24] LABS: BUN/Creatinine Ratio 14 (6-26); Blood Urea Nitrogen 18 mg/dL (8-23); Calcium 8.6 mg/dL (8.6-10.3); Carbon Dioxide 20 mEq/L (23-29); Chloride 109 mEq/L (98-107); Glucose 192 mg/dL (70-105); Osmolality,Calculated 293 (280-300); Potassium 3.8 mEq/L (3.5-5.1); Sodium 138 mEq/L (136-145); eGFR For African Americans > 60 (> 60); eGFR For Non-African Americans 57 (> 60)
[2021-07-24] MEDS: *HR* Rivaroxaban 10 MG TABLET PO SCH (16:44)
[2021-07-24 18:44] VITALS: BP 108/62; PULSE 107; TEMP 98.6; O2SAT 90
[2021-07-24] MEDS ORDERED: Doxycycline 100 MG CAPSULE PO SCH (21:00)
[2021-07-24] MEDS ORDERED: Bumetanide 1 MG TABLET PO SCH (21:00)
== END 2021-07-24 19:22 | DRG 871 ==
LOC: ICNU → SUATTDRO 07-14 11:12 → 2ANU 07-15 20:15
PROVIDERS: ADMIT Internal Medicine; ATTEND Family Medicine